=== PATIENT | female | born 1975 | race Caucasian/White ===

== ENCOUNTER 2018-09-11 17:44 | Emergency (ER) | payer OTHER, SELFPAY ==
[2018-09-11 17:46] VITALS: BP 137/73; PULSE 119; RESP 22; TEMP 36.2; O2SAT 99; BMI 26.4
--- NOTE | 2018-09-11 18:01 | CT_ITS ---
STUDY: CT ABDOMEN AND PELVIS WITH CONTRAST REASON FOR EXAM: Female, 43 years old. Abdominal pain with fever and dizziness RADIATION DOSAGE (If Supplied By Facility): CTDIvol = ( 9.68 ) mGy, DLP = ( 625.66 ) mGycm TECHNIQUE: Transaxial images were obtained from the dome of the diaphragm to the symphysis pubis with oral contrast. 75 ml of Isovue 300 contrast was administered. Sagittal and coronal images were reconstructed. Individualized dose optimization techniques were used for this CT. COMPARISON: None. FINDINGS: The visualized lung bases are unremarkable. The visualized portions of the heart are within normal limits. Normal liver. Normal gallbladder and extrahepatic biliary system. Normal spleen. Normal pancreas. Normal bilateral adrenal glands. Normal right kidney. Normal left kidney. Normal visualized stomach. Normal small intestine. There is moderately wall thickening of the sigmoid colon with small diverticula noted. Rochelle-colonic stranding noted. There is passage of oral contrast into the rectum. The appendix is not identified but no pericecal stranding is identified. Normal abdominal aorta. Normal inferior vena cava. Normal retroperitoneum. Normal urinary bladder. Normal abdominal wall. Normal osseous structures. CT/Abdomen/Pelvis WITH Contrast IMPRESSION: 1. Sigmoid diverticulitis without focal fluid collection or pneumoperitoneum. Electronically Signed: Aniceot Romo MD at 20:08 EDT , Service support ,
[2018-09-11 18:10] VITALS: BP 126/76; PULSE 103; RESP 17; O2SAT 100
--- NOTE | 2018-09-11 18:58 | ED.RN ---
unable to obtain iv access. dr sales. jesus wasted in rx distroyer and verified in accudose. witness by josh bravo.
[2018-09-11 19:29] LABS: Absolute Lymphocyte Count 1.68 X10^3/ul (0.83-4.51); Absolute Neutrophil Count 8.3 X10^3/uL (2.0-7.7); Basophil# 0.02 X10^3/uL; Basophil% 0.2 % (0-1); Eosinophil# 0.17 X10^3/uL; Eosinophils% 1.6 % (0-5); Hematocrit 38.3 % (37-47); Hemoglobin 12.6 g/dl (12.0-15.0); Lymphocyte # 1.68 X10^3/ul (4.0); Lymphocyte % 15.5 % (19-41); Mean Corp Hgb Conc 32.9 g/gl (32-36); Mean Corpuscular Hgb 30.8 pg (27.0-32.0); Mean Corpuscular Volume 93.6 fL (81-99); Mean Platelet Vol. 9.6 fl (6.2-12.0); Monocyte# 0.67 X10^3/uL; Monocyte% 6.2 % (0-10); Neutrophil # 8.31 X10^3/uL (2.7-7.7); Neutrophil % 76.3 % (47-70); Platelet Count 224 K/mm3 (150-450); RBC Distribution Width CV 11.9 % (11.6-14.6); RBC Distribution Width SD 40.2 fl (35.1-43.9); Red Blood Count 4.09 M/mm3 (4.2-5.4); White Blood Count 10.9 K/mm3 (4.4-11.0)
[2018-09-11 19:30] LABS: POSITIVE COUNT NO; POSITIVE DIFFERENTIAL NO; POSITIVE MORPHOLOGY NO
[2018-09-11 19:41] LABS: AST(SGOT) 31 U/L (15-37); Alanine Aminotransfer ALT/SGPT 26 U/L (13-56); Albumin, Serum 3.9 g/dL (3.2-5.0); Alkaline Phosphatase 92 U/L (45-117); Anion Gap 7 (5-15); BUN 11 mg/dL (7-18); BUN/Creat Ratio 12.3 RATIO (10-20); Calcium,Total 8.9 mg/dL (8.5-10.1); Chloride 101 mmol/L (98-107); EST Glomerular Filtration Rate 72 mL/min (>60); Est Glom Filt Rate - Afr Amer 88 mL/min (>60); Estimated Creatinine Clearance 59.57 ml/min; Globulin 4.4 g/dL (2.2-4.2); Glucose 86 mg/dL (74-106); Lipase 79 U/L (73-393); Potassium 4.4 mmol/L (3.5-5.1); Protein, Total 8.3 g/dL (6.4-8.2); Sodium Level 137 mmol/L (136-145)
[2018-09-11] MEDS: Metoclopramide 10 MG/2 ML Vial IV (19:41)
[2018-09-11] MEDS: HYDROmorphone 1 MG/ML Syringe 0.5 MG IV (19:41)
[2018-09-11] MEDS: 0.9% Normal Saline 1,000 ML 1000 ML IV (19:41)
[2018-09-11 19:47] LABS: Bacteria 0 SEEN /hpf (None Seen); Mucous, Urine 0 SEEN /hpf (<or=2+); Red Blood Cells-Urine 0 SEEN /hpf (0-5)
[2018-09-11 19:51] LABS: Color, Urine Straw (Yellow); Glucose, Dipstick Normal (Normal); Ketone-Dipstick Negative (Negative); Leukocyte Esterase-Dipstick Negative /ul (Negative); Nitrite-Dipstick Negative (Negative); Occult Blood-Urine Negative /ul (Negative); Protein-Dipstick Negative (Negative); Specific Gravity, Urine 1.005 (1.002-1.030); Urine Bilirubin Dipstick Negative (Negative); Urine Clarity Clear (Clear); Urine Urobilinogen Normal (Normal)
[2018-09-11 19:58] LABS: Squamous Epithelial Cells - UA 0-5 SEEN /hpf (5-10); White Blood Cells 0-5 SEEN /hpf (0-5)
[2018-09-11 20:00] VITALS: BP 96/64; PULSE 88; RESP 20; O2SAT 98
--- NOTE | 2018-09-11 20:39 | ED.VISSUMM ---
- ER Visit Summary Date of Service: 09/11/18 Chief Complaint: Acute right-sided and lower quadrant abdominal pain that started yesterday History of Present Illness: The patient is a 43 F who presents with increasing right-sided and lower quadrant abdominal pain with documented fever of 102.0 ?F. She reports nausea without vomiting, diarrhea, constipation or change in color of stool. She reports pain with movement or walking. She is status post hysterectomy. She denies dysuria, frequency, urgency or hematuria. She denies food intolerance to greasy or fried foods. She denies back pain. She has no other complaints please read written note Physical Examination: Vital signs are noted and unremarkable. Patient appears uncomfortable. Head is atraumatic normocephalic. Pupils are equal round reactive. Extraocular muscles are intact. TMs are pearly white with landmarks noted. Nares patent with no drainage. Posterior pharynx without erythema or exudate. Uvula is midline. There is no dysphonia or dysphasia. Trachea is midline. There is no stridor with auscultation of the neck. Heart is regular without murmur, gallop or rub. S1 and S2 are normal. Lungs are clear to auscultation with good movement of air bilaterally. Abdomen soft with peritoneal findings. There is no CVA tenderness. There is no evidence of umbilical or inguinal hernia. There is no inguinal lymphadenopathy. Neuro exam is nonfocal. Test Results: CBC, electrolyte panel and UA are unremarkable. CT of the abdomen pelvis with p.o. contrast reveals diverticulitis without phlegmon, abscess or pneumoperitoneum. Emergency Department Course and Treatment: With patient complaining of maximal tenderness right lower quadrant need to evaluate for appendicitis. Also need to evaluate for acute right-sided diverticulitis. UTI unlikely. With no CVA tenderness doubt pyelonephritis. Hepatic and lipase were obtained in the event that this is an atypical presentation for acute cholecystitis. Treatment Plan: Since patient is afebrile with normal white count and vitals patient will be treated as an outpatient with instructions to follow-up with Dr. Green in 1-2 days. If symptoms worsen to return Disposition: Discharged to home since patient meets criteria for outpatient treatment Impression: Acute diverticulitis initial encounter This note was generated with [employer] dictation software. It may contain incorrect words, spelling, and punctuation that were not noted in review of the chart prior to signing ED Disposition - Plan for ED Patient: Disposition: Home or Assisted Living Chief Complaint: Abd Pain Instructions: ED Diverticulitis Prescriptions: Oxycodone HCl/Acetaminophen [Percocet 5/325] 1 tablet PO Q6H PRN PRN 3 Days #12 tablet PRN Reason: Pain Ciprofloxacin [Cipro] 500 mg PO BID #14 tablet Metronidazole 500 mg PO TID #21 tablet Referrals: Julián Green DO [Primary Care Provider] - 2 Days Additional Instructions: Your prescriptions were electronically transmitted to [facility] located on [facility]
[2018-09-11] MEDS: Ciprofloxacin 500 MG Tablet PO (21:17)
[2018-09-11] MEDS: metroNIDAZOLE 500 MG Tablet PO (21:17)
== END 2018-09-11 21:19 | disposition home or self-care (01) ==
PROVIDERS: Emergency Provider Emergency Medicine; Family Provider Student in an Organized Health Care Education/Training Program; PCP Student in an Organized Health Care Education/Training Program
DX: K57.92 Diverticulitis of intestine, part unspecified, without perforation or abscess without bleeding (principal)
CPT/HCPCS: 74177; 80048; 80076; 81001; 83690; 85025; 96361; 96374; 96375; 99285; J7030; Q9967

== ENCOUNTER 2019-09-22 17:16 | Observation (INO) | payer OTHER, SELFPAY ==
[2019-08-26 16:34] VITALS: BMI 26.4
[2019-09-22] VITALS (8 sets, daily range): BP systolic 94–158; BP diastolic 55–85; PULSE 72–110; RESP 15–18; TEMP 36.4–36.8; O2SAT 98–100; BMI 28.7; BMI 27.6; BMI 27.7
--- NOTE | 2019-09-22 17:31 | EKG12_ITS ---
Test Reason : CP Blood Pressure : / mmHG Vent. Rate : 104 BPM Atrial Rate : 104 BPM P-R Int : 152 ms QRS Dur : 082 ms QT Int : 344 ms P-R-T Axes : 068 065 -53 degrees QTc Int : 452 ms Sinus tachycardia Nonspecific T wave abnormality Abnormal ECG Confirmed by EDWARD CHIANG, ANA ([id number]), television news video editor DIEGO ADAMS ([id number]) on 09/25/2019 10:58:00 AM Referred By: BRADLEY Confirmed By:ANA LEON MD
--- NOTE | 2019-09-22 17:31 | RAD_ITS ---
STUDY: X-RAY CHEST REASON FOR EXAM: Female, 44 years old. Chest pain. TECHNIQUE: Single AP portable view of the chest. COMPARISON: None. FINDINGS: There are monitoring devices. The lungs are clear and expanded. There is no demonstrated pleural abnormality. Normal size heart. Normal mediastinum and amy. Normal visualized pulmonary arteries. Normal visualized aortic arch and descending thoracic aorta. Normal visualized thoracic spine. Normal visualized ribs, clavicles, and shoulders. There is no demonstrated abnormality of the visualized soft tissue structures of the upper abdomen. RAD/Chest 1 View (Portable) IMPRESSION: Normal x-ray examination of the chest. Electronically Signed: Gian Todd MD at 18:06 EDT , Service support ,
--- NOTE | 2019-09-22 17:33 | ED.VIS.GEN ---
History of Present Illness Chief Complaint: Chest Pain Informant: Patient Onset: Today Timing: Intermittent Current Severity: Moderate Maximum Severity: Moderate Narrative: Patient presents with chest pain and nausea today. She had 3 episodes. First episode lasted about 20 minutes and then resolved. Her current episode is been more persistent. She initially thought she just had some reflux. She does not feel short of breath. She has not noted recent change in activity tolerance. She denies any personal history of cardiac disease. She does have family history. She did have a trip to [place] 6 weeks ago. Past Medical History - Allergies and Home Meds Allergies/Adverse Reactions: Allergies prochlorperazine [From Compazine] Allergy (Verified 09/22/19 17:17) Unknown sumatriptan [From Imitrex] Allergy (Verified 09/22/19 17:17) JAW PAIN fentanyl Adverse Reaction (Verified 09/22/19 17:17) SEVERE NAUSEA/VOMITING morphine Adverse Reaction (Verified 09/22/19 17:17) SEVERE NAUSEA/VOMITING ondansetron Adverse Reaction (Verified 09/22/19 17:17) AVOIDING SINCE PHENERGAN MADE HER STOP BREATHING promethazine [From Phenergan] Adverse Reaction (Verified 09/22/19 17:17) STOPPED BREATHING Primary Care Physician: Julián Green DO [Primary Care Provider] - Prior records reviewed: Yes Past Medical History: - - Reviewed Lives: Spouse/ Significant Other Smoking Status: Never smoker Review of Systems General: Denies: Chills, Fever Eyes: Denies: Visual changes - bilaterally ENT: Denies: Bilateral ear pain Cardiovascular: Reports: Chest pain Respiratory: Denies: Dyspnea, Cough Gastrointestinal: Reports: Nausea. Denies: Abdominal pain, Vomiting, Diarrhea Genitourinary: Denies: Dysuria Musculoskeletal: Denies: Swelling, Extremity Pain Skin: Denies: Rash Hematologic: Denies: Easy bruising Allergy: Denies: Uticaria Physical Exam Vital Signs/Narrative: Vital Signs Temp Pulse Resp BP Pulse Ox 09/22/19 17:17 97.7 F L 110 H 15 158/85 H 100 09/22/19 17:16 96 16 158/85 H 98 Inital Vital Signs reviewed: Yes General: Well nourished, Well developed Head: Normocephalic ENT: Moist mucous membranes Neck: Supple Cardiovascular: Regular rate, Regular rhythm Respiratory: No distress, CTA bilaterally Abdomen: Soft, Nontender, Normal bowel sounds Extremities: Nontender Skin: Normal color Neurological: Alert, Oriented x3 Psychological: Normal affect Diagnostic/Tx/Re-eval Impressions Chest X-Ray 09/22/19 17:31 IMPRESSION: Normal x-ray examination of the chest. Electronically Signed: Gian Todd MD at 18:06 EDT , Service support , 09/22/19 17:31 Chest 1 View (Portable) [RAD] Stat Laboratory Results 09/22/19 09/22/19 09/22/19 17:30 17:30 17:30 WBC 8.5 RBC 4.35 Hgb 13.5 Hct 40.8 MCV 93.8 MCH 31.0 MCHC 33.1 RDW Std Deviation 42.8 RDW Coeff of Barbara 12.3 Plt Count 238 MPV 9.2 Immature Gran % (Auto) 0.400 Neut % (Auto) 62.2 Lymph % (Auto) 29.1 [place] % (Auto) 6.2 Eos % (Auto) 1.6 Baso % (Auto) 0.5 Absolute Neuts (auto) 5.3 Absolute Lymphs (auto) 2.47 Nucleated RBC % 0 D-Dimer Quant (PE/DVT) < 0.27 L Sodium 138 Potassium 3.5 Chloride 102 Carbon Dioxide 30.0 Anion Gap 6 BUN 17 Creatinine 0.98 Estim Creat Clear Calc 54.13 Est GFR (MDRD) Af Amer 78 Est GFR (MDRD) Non-Af 65 BUN/Creatinine Ratio 17.3 Glucose 94 Calcium 9.5 Troponin I < 0.015 - EKG Initial EKG Interpretation: Sinus Tachycardia - Sinus tach at 104 with lateral T wave flattening. This is new when compared to prior study of 2013. - Medical Decision Making Patient has multiple allergies to pain medications and nausea meds. She was given 0.5 mg of Dilaudid slow push. She is also ordered a dose of IV Protonix. On repeat evaluation she does report mild improvement in her symptoms, although Protonix is just now getting hung. I have recommended observation overnight for cycling of enzymes and possible stress test in the morning. We will speak with the hospitalist. ED Disposition - Plan for ED Patient: Disposition: Acute Care Hospital [facility] Diagnosis: Chest pain Referrals: Green,Julián, DO [Primary Care Provider] -
[2019-09-22] MEDS: Aspirin 81 MG TAB.CHEW 324 MG PO (17:39)
[2019-09-22 17:40] LABS: Absolute Lymphocyte Count 2.47 X10^3/uL (0.83-4.51); Absolute Neutrophil Count 5.3 X10^3/uL (2.0-7.7); Basophil# 0.04 X10^3/uL; Basophil% 0.5 % (0-1); Eosinophil# 0.14 X10^3/uL; Eosinophils% 1.6 % (0-5); Hematocrit 40.8 % (37-47); Hemoglobin 13.5 g/dL (12.0-15.0); Lymphocyte # 2.47 X10^3/ul (4.0); Lymphocyte % 29.1 % (19-41); Mean Corp Hgb Conc 33.1 g/dL (32-36); Mean Corpuscular Volume 93.8 fL (81-99); Mean Platelet Vol. 9.2 fl (6.2-12.0); Monocyte# 0.53 X10^3/uL; Monocyte% 6.2 % (0-10); NRBC Flagged by Analyzer 0 % (0-5); Neutrophil # 5.29 X10^3/uL (2.7-7.7); Neutrophil % 62.2 % (47-70); Platelet Count 238 K/mm3 (150-450); RBC Distribution Width CV 12.3 % (11.6-14.6); RBC Distribution Width SD 42.8 fl (35.1-43.9); Red Blood Count 4.35 M/mm3 (4.2-5.4); White Blood Count 8.5 K/mm3 (4.4-11.0)
[2019-09-22] MEDS: HYDROmorphone 0.5 MG/0.5 ML SYRINGE IV ×2 (17:42→23:12)
[2019-09-22 17:47] LABS: D-Dimer Quantitative (DVT/PE) < 0.27 FEU/ug/m (0.27-0.49)
[2019-09-22 18:14] LABS: Anion Gap 6 (5-15); BUN 17 mg/dL (7-18); BUN/Creat Ratio 17.3 RATIO (10-20); Calcium,Total 9.5 mg/dL (8.5-10.1); Chloride 102 mmol/L (98-107); Creatinine, Serum 0.98 mg/dL (0.55-1.02); EST Glomerular Filtration Rate 65 mL/min (>60); Est Glom Filt Rate - Afr Amer 78 mL/min (>60); Estimated Creatinine Clearance 54.13 ml/min; Glucose 94 mg/dL (74-106); Potassium 3.5 mmol/L (3.5-5.1); Sodium Level 138 mmol/L (136-145)
[2019-09-22] MEDS: 0.9% Normal Saline 1,000 ML 150 ML IV (18:25)
--- NOTE | 2019-09-22 18:59 | HP.PCM_ITS ---
Problem List (1) Chest pain Status: Acute Qualifiers: Chest pain type: precordial pain Qualified Code(s): R07.2 - Precordial pain History of Present Illness Date of Admission: 09/22/19 Chief Complaint: Precordial chest pain The patient is a 44 year old F was seen in the emergency room at [facility] with a chief complaint of precordial chest pain which began today. Patient has had several episodes of this chest pain-she describes it as either a sharp jabbing pain or a pressure-like sensation in the center of her chest. Does not radiate into her neck jaw or arms, it is not accompanied by shortness of breath or diaphoresis she does have some nausea. Patient states that she cannot identify what precipitates the chest discomfort, she states that it lasts approximately 25 to 30 minutes, it is not related to activity as she has it at rest. Patient denies any history of reflux disease or any gastrointestinal problems, the chest discomfort is not made worse by position, coughing, or sneezing. Patient denies any history of diabetes, she does not smoke, she has no first- degree relatives with cardiac disease, she has no history of hypertension, she states her cholesterol was checked recently and she was not placed on any medications for cholesterol. Work-up in the emergency room included labs which revealed a normal troponin, patient's EKG showed a normal sinus rhythm with some flattening of the T waves in the lateral precordial leads. Patient will be placed in observation status for chest pain, enzymes will be cycled, she will undergo an exercise nuclear str ess test tomorrow and I have also ordered an echocardiogram on the patient. Past Medical History Allergies prochlorperazine [From Compazine] Allergy (Verified 09/22/19 17:17) Unknown sumatriptan [From Imitrex] Allergy (Verified 09/22/19 17:17) JAW PAIN fentanyl Adverse Reaction (Verified 09/22/19 17:17) SEVERE NAUSEA/VOMITING morphine Adverse Reaction (Verified 09/22/19 17:17) SEVERE NAUSEA/VOMITING ondansetron Adverse Reaction (Verified 09/22/19 17:17) AVOIDING SINCE PHENERGAN MADE HER STOP BREATHING promethazine [From Phenergan] Adverse Reaction (Verified 09/22/19 17:17) STOPPED BREATHING Home Medications: Ambulatory Orders Medication Instructions Recorded Fluoxetine [Prozac] 20 mg PO DAILY 09/11/18 zolpidem 10 mg tablet 12.5 mg PO QHS PRN 08/26/19 ALPRAZolam [Xanax] 0.5 mg PO DAILY PRN 09/22/19 Amitriptyline HCl 50 mg PO QHS 09/22/19 Surgical History: Surgical History (Last Updated 08/26/19 @ 16:33 by Kimberly Larson) History of hysterectomy Z90.710 Surgical History: hysterectomy, - - Removal of ovarian cyst, arthroscopic shoulder surgery, lasik surgery Psychiatric History: 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 Lives: Spouse/ Significant Other Smoking Status: Never smoker Tobacco Use: Non-smoker Alcohol: Occasional Drugs: None - *Family History Maternal History Items: No pertinent history Paternal History Items: No pertinent history Review of Systems Constitutional: Denies: Anorexia, Chills, Fever, Night Sweats, Malaise, Weakness, Weight Change Eyes: Denies: Cataracts, Conjunctivae Inflammation, Double vision, Drainage, Eyelid Inflammation, Redness HEENT: Denies: Difficulty Hearing, Difficulty Swallowing, Dysphasia, Ear Pain, Eye Pain, Hearing Changes, Nasal bleeding, Nasal Congestion, Post Nasal Drip Cardiovascular: Reports: Chest Pain, Chest Pressure. Denies: Claudication, Edema, Heaviness, Light Headedness, Orthopnea, Palpitations, Paroxysmal Noc. Dyspnea, Syncope Respiratory: Denies: Cough, Hemoptysis, Pleuritic Pain, Shortness of Breath, Shortness of breath at rest, Shortness of breath upon exertion, Sputum production, Wheezing Gastrointestinal: Denies: Abdominal Pain, Constipation, Diarrhea, Hematemesis, Hematochezia, Nausea, Melena, Vomiting Genitourinary: Denies: Dysuria, Frequency, Hematuria, Hesitancy, Urgency Gynecological: Denies: Breast symptoms Musculoskeletal: Denies: Back Pain, Foot Pain, Hand Pain, Joint Pain, Joint stiffness, Joint swelling, Joint Tenderness, Leg Pain Skin: Denies: Dryness, Pruritis, Rash Neurological: Denies: Blurred vision, Double vision, Change in Speech, Slurred speech, Difficulty swallowing, Focal weakness, Headaches, Incoordination, Numbness, Tingling Psychiatric: Denies: Anxiety, Depression, Homicidal Ideations, Suicidal Ideations Endocrine: Denies: Change in Body Habitus, Heat/ Cold Intolerance, Polydipsia, Polyuria Hematologic/ Lymphatic: Denies: Adenopathy, Anemia, Easy Bruising, Easy Bleeding, Petechiae, Purpura VTE Information - Inpt Only VTE Present on Admission: No VTE Mechan Device Prophylaxis: None VTE Pharm Prophylaxis ordered?: No Reason prophylaxis not ordered:: Treatment Not Indicated Patient Problems: Active and Suspected Problems (Last Updated 08/26/19 @ 16:31 by Kimberly Larson) Chest pain (Acute) - Physical Exam Vitals/I&O's: Vital Signs Temp Pulse Resp BP Pulse Ox 97.7 F L 92 18 120/76 100 09/22/19 17:17 09/22/19 18:26 09/22/19 18:26 09/22/19 18:26 09/22/19 18:26 Oxygen Flow Rate (L/min) 2 Oxygen Delivery Method Nasal Cannula Weight: 68.9 kg Body Mass Index (BMI) 28.7 General: Alert, Oriented x3, Cooperative, No apparent distress, Well developed, Well nourished HEENT: Atraumatic, PERRLA, EOMI, Normocephalic Oral: Moist Mucosa Neck: Supple, No JVD, Negative Carotid Bruits, No Nuchal Rigidity, Trachea Midline, Thyroid Normal Size and Texture Lungs: Clear to auscultation, Normal air movement, No rhonchi, No wheeze, No rales Cardiovascular: Regular rate, Regular Rhythm, Normal S1, Normal S2, No murmurs, PMI Normal, No rub noted Abdomen: Bowel Sounds Present, Soft, Non Tender, Non-Distended, No hernias noted Extremities: No clubbing, No cyanosis, No edema, Capillary Refill Less than 3 Seconds Skin: No rashes, No breakdown Musculoskeletal: No Tenderness to Palpation of Joints or Extremities Neurological: Cranial nerves II-XII grossly intact, Neuro grossly intact, Motor Exam 5/5 strength throughout, Sensory exam intact to light touch and pain, Coordination normal Psych/Mental Status: Normal Affect, Appropriate, Alert and oriented to time, place, person, mood and affect Laboratory Results 09/22/19 17:30: WBC 8.5, RBC 4.35, Hgb 13.5, Hct 40.8, MCV 93.8, MCH 31.0, MCHC 33.1, RDW Std Deviation 42.8, RDW Coeff of Barbara 12.3, Plt Count 238, MPV 9.2, Immature Gran % (Auto) 0.400, Neut % (Auto) 62.2, Lymph % (Auto) 29.1, [place] % (Auto) 6.2, Eos % (Auto) 1.6, Baso % (Auto) 0.5, Absolute Neuts (auto) 5.3, Absolute Lymphs (auto) 2.47, Nucleated RBC % 0 09/22/19 17:30: D-Dimer Quant (PE/DVT) < 0.27 L 09/22/19 17:30: Sodium 138, Potassium 3.5, Chloride 102, Carbon Dioxide 30.0, Anion Gap 6, BUN 17, Creatinine 0.98, Estim Creat Clear Calc 54.13, Est GFR (MDRD) Af Amer 78, Est GFR (MDRD) Non-Af 65, BUN/Creatinine Ratio 17.3, Glucose 94, Calcium 9.5, Troponin I < 0.015 Current Medications Sodium Chloride () 1,000 mls @ 150 mls/hr IV .Q6H40M NIKI Last Admin: 09/22/19 18:25 Dose: 150 mls/hr Documented by: Assessment/Plan All Active Problems (Last Updated 08/26/19 @ 16:31 by Kimberly Larson) Chest pain (Acute) Impacted cerumen of both ears (Resolved) Conjunctivitis, left eye (Resolved) #1 precordial chest pain-etiology unclear, possibly secondary to anxiety or possible gastro-intestinal etiology-patient will be placed in observation status on PCU, cardiac enzymes will be cycled, she will have an echocardiogram to assess structural cardiac disease, if her enzymes remain normal she will undergo a nuclear exercise stress test tomorrow. I talked at length with the patient and her who was at the bedside during my examination, her chest pain I feel is atypical for cardiac disease-she has no risk factors for cardiac disease that I can determine. Patient exercises regularly, this chest pain does not seem to be positional in nature and I was unable to reproduce it pushing on the patient's chest wall. Patient does take anxiety medications, she mentioned to me during my examination she thought that stress may have caused her problem. #2 anxiety disorder-patient will remain on her present medications. Code Visit OBSV E&M: [id number] Initial observation care L3
--- NOTE | 2019-09-22 19:16 | ECHOD_ITS ---
Reason For Study: CHEST PAIN Procedure This was a 2D Doppler, Color Flow transthoracic echocardiogram. The exam was of adequate technical quality. Exam performed in department. Left Ventricle Normal LV size. Left ventricular systolic function is normal. The estimated ejection fraction is 65 %. No evidence for diastolic dysfunction. No regional wall motion abnormalities noted. Right Ventricle Normal RV size. Normal systolic function. Atria Normal left atrium. Normal right atrium. No doppler evidence for ASD. Mitral Valve There is no mitral annular calcification. Mild focal mitral valve calcification of the posterior leaflet. Trivial mitral valve insufficiency. Tricuspid Valve Normal tricuspid valve. Trivial tricuspid valve insufficiency. Aortic Valve Trisinus/trileaflet aortic valve. Normal aortic valve. Pulmonic Valve The pulmonic valve is not well visualized. Great Vessels Normal sized aortic root. Pericardium/Pleural No pericardial effusion. Epicardial fat. MMode/2D Measurements & Calculations LVIDd: 4.0 cm IVSd: 0.69 cm Ao root diam: 2.6 cm LVIDs: 2.7 cm LVPWd: 0.66 cm RVDd: 2.6 cm FS: 32.7 % LAV(MOD-bp): 31.5 ml LVAd ap4: 23.7 cm2 SV(MOD-sp4): 35.3 ml LAV(MOD-bp) Indexed: 19.2 ml/m2 EDV(MOD-sp4): 57.8 ml LAV(MOD-sp2): 37.9 ml EDV(sp4-el): 60.2 ml LAV(MOD-sp4): 26.7 ml LVAs ap4: 13.0 cm2 ESV(MOD-sp4): 22.5 ml ESV(sp4-el): 22.4 ml EF(MOD-sp4): 61.0 % EF(sp4-el): 62.9 % SV(sp4-el): 37.8 ml LA A4 area: 12.8 cm2 LA dimension(2D): 3.1 cm RA A4 area: 12.2 cm2 Time Measurements MV dec time: 0.17 sec Doppler Measurements & Calculations MV E max cody: 82.6 cm/sec Lat Peak E' Cody: 12.8 cm/sec Med Peak E' Cody: 10.8 cm/sec MV A max cody: 54.1 cm/sec E/E' lat: 6.5 E/E' med: 7.7 MV E/A: 1.5 Ao V2 max: 124.0 cm/sec LV V1 max: 91.3 cm/sec Ao max P.1 mmHg LV V1 max P.3 mmHg Interpretation Summary Left ventricular systolic function is normal. The estimated ejection fraction is 65 %. Mild focal mitral valve calcification of the posterior leaflet. Trivial mitral valve insufficiency. Trivial tricuspid valve insufficiency. Epicardial fat. No evidence for diastolic dysfunction. Ordering Physician: Chris Bautista Referring Physician: LACEY ROSE Performed By: Anupama Fermin, GERARDO, RVT
--- NOTE | 2019-09-22 19:34 | EKG12_ITS ---
Test Reason : CP ADMISSION Blood Pressure : / mmHG Vent. Rate : 074 BPM Atrial Rate : 074 BPM P-R Int : 122 ms QRS Dur : 080 ms QT Int : 394 ms P-R-T Axes : 035 054 020 degrees QTc Int : 437 ms Normal sinus rhythm Normal ECG When compared with ECG of 22-SEP-2019 17:20, MANUAL COMPARISON REQUIRED, DATA IS UNCONFIRMED Confirmed by EDWARD CHIANG, ANA ([id number]), managing editor DIEGO ADAMS ([id number]) on 09/25/2019 11:34:27 AM Referred By: ANETA Confirmed By:ANA LEON MD
[2019-09-22] MEDS: Acetaminophen 325 MG Tablet 650 MG PO (19:51)
[2019-09-22] MEDS: Amitriptyline 25 MG Tablet 50 MG PO (21:57)
[2019-09-22] MEDS: Zolpidem Tartrate 5 MG Tablet 10 MG PO (21:57)
[2019-09-23 03:06] VITALS: PULSE 72
[2019-09-23 03:50] VITALS: BP 93/55; PULSE 74; RESP 14; TEMP 36.6; O2SAT 96
--- NOTE | 2019-09-23 05:55 | EKG12_ITS ---
Test Reason : AM EKG Blood Pressure : / mmHG Vent. Rate : 069 BPM Atrial Rate : 069 BPM P-R Int : 146 ms QRS Dur : 080 ms QT Int : 396 ms P-R-T Axes : 061 066 051 degrees QTc Int : 424 ms Normal sinus rhythm Normal ECG When compared with ECG of 22-SEP-2019 20:08, MANUAL COMPARISON REQUIRED, DATA IS UNCONFIRMED Confirmed by EDWARD CHIANG, ANA ([id number]), scientific publications editor DIEGO ADAMS ([id number]) on 09/25/2019 11:33:13 AM Referred By: ANETA Confirmed By:ANA LEON MD
[2019-09-23 07:16] VITALS: PULSE 74
--- NOTE | 2019-09-23 08:00 | NURSING ---
Pt to stress test via [employer]
--- NOTE | 2019-09-23 10:04 | STRESSREP_ITS ---
Stress Test Report Date: 09-23-19 Procedure: Exercise tolerance test/imaging study Indications: Chest pain Consent: Per the patient Procedure: The patient exercised on a Luis protocol for 5 minutes and 30 seconds completing Stage I and 2 minutes and 30 seconds of Stage II achieving a peak heart rate of 150 bpm (86 % predicted maximal heart rate) with a peak blood pressure 146/60 mmHg and a peak MET capacity of 7 METs. The baseline ECG demonstrated normal sinus rhythm. The peak exercise ECG demonstrated somatic/motion artifact with beat to beat nonspecific ST segment variability. There were no cardiac dysrhythmias pretest, during exercise, or recovery. The functional capacity was considered decreased. There was chest discomfort pretest, during exercise, and recovery. The examination was discontinued secondary to chest discomfort and fatigue. Impression: 1. Technically adequate (percent predicted maximal heart rate greater than 85%) exercise tolerance test 2. Peak exercise ECG with somatic/motion artifact with beat to beat nonspecific ST segment variability 3. There were no cardiac dysrhythmias pretest, during exercise, or recovery 4. Nuclear images pending Myocardial perfusion imaging study: Technique: The patient was injected with 12.0 mCi of technetium 99m Cardiolite and subsequently rest SPECT Cardiolite nuclear imaging was obtained in the horizontal long, vertical long, and short axis views. The patient exercised on a Luis protocol for 5 minutes and 30 seconds completing Stage I and 2 minutes and 30 seconds of Stage II achieving a peak heart rate of 150 bpm (86 % predicted maximal heart rate) with a peak blood pressure 146/60 mmHg and a peak MET capacity of 7 METs. The patient was injected with 36.0 mCi of technetium 99m Cardiolite and subsequently stress SPECT Cardiolite nuclear imaging was obtained in the horizontal long, vertical long, and short axis views. A gated Cardiolite study at peak stress was obtained. Interpretation: Rest and stress SPECT Cardiolite nuclear imaging status post realignment, normalization, and attenuation correction, demonstrates the appearance of extracardiac/gastrointestinal tracer uptake near the inferior segments at rest. Otherwise there appears to be relative uniform tracer uptake and myocardial perfusion appearing within normal limits. There are no myocardial perfusion deficits appreciated on the stress polar map images. There is end systolic thickening and brightening. The gated Cardiolite study demonstrates myocardial thickening and inward wall motion. The reported LVEF is 84 %. Impression: 1. Rest and stress SPECT Cardiolite nuclear imaging demonstrate relative uniform tracer uptake and myocardial perfusion appearing within normal limits. 2. The gated Cardiolite study reports an LVEF of 84 %. This note was generated with ContactMonkeyation software. It may contain incorrect words, spelling, and punctuation that were not noted in checking the note before signing.
[2019-09-23 10:44] VITALS: BP 109/65; PULSE 81; RESP 16; TEMP 36.7; O2SAT 99
[2019-09-23] MEDS: Acetaminophen 325 MG Tablet 650 MG PO (10:48)
[2019-09-23] MEDS: FLUoxetine 20 MG Capsule PO (10:48)
[2019-09-23 11:02] VITALS: PULSE 79
--- NOTE | 2019-09-23 13:43 | DCINST_ITS ---
- Discharge Diagnoses Current Active Problems: Current Active and Chronic Problems (Last Updated 08/26/19 @ 16:31 by Kimberly Larson) Chest pain (Acute) You will use the following diet at home:: Regular Your food should be the consistency of: Regular Your liquids should be the consistency of: Regular/Thin Discharge Activity: Return to Normal Activity Allergies/Adverse Reactions: Allergies prochlorperazine [From Compazine] Allergy (Verified 09/22/19 17:17) Unknown promethazine [From Phenergan] Allergy (Verified 09/22/19 19:12) STOPPED BREATHING sumatriptan [From Imitrex] Allergy (Verified 09/22/19 17:17) JAW PAIN fentanyl Adverse Reaction (Verified 09/22/19 17:17) SEVERE NAUSEA/VOMITING morphine Adverse Reaction (Verified 09/22/19 17:17) SEVERE NAUSEA/VOMITING ondansetron Adverse Reaction (Verified 09/22/19 17:17) AVOIDING SINCE PHENERGAN MADE HER STOP BREATHING Medications to take at Discharge Fluoxetine [Prozac] 20 mg PO DAILY 09/11/18 zolpidem 10 mg tablet 12.5 mg PO QHS PRN 08/26/19 ALPRAZolam [Xanax] 0.5 mg PO DAILY PRN 09/22/19 Amitriptyline HCl 50 mg PO QHS 09/22/19 Primary Care Physician: Julián Green DO [Primary Care Provider] - Please follow up with your Primary Care Physician in: 1-2 weeks Test Results: Test results from this visit will be discussed in further detail at your follow- up appointment, if applicable. Proposed Discharge Date: 09/23/19
--- NOTE | 2019-09-23 13:44 | PCM.DC.SUM ---
<Oliverio Quiñones - Last Filed: 09/23/19 13:44> Discharge Date and Diagnosis - Problem List Patient Problems: Active and Suspected Problems (Last Updated 08/26/19 @ 16:31 by Kimberly Larson) Chest pain (Acute) Date of Admission: 09/22/19 Date of Discharge: 09/23/19 - Primary Discharge Diagnosis Active and Suspected Problems (Last Updated 08/26/19 @ 16:31 by Kimberly Larson) Chest pain - musculoskeletal Anxiety disorder Hx migraines Hospital Course and Treatment Imaging Results: Diagnostics: 09/23/19 05:55 Nuclear Stress Test - Treadmil [NM] AM (NON MEDS) Impression: 1. Rest and stress SPECT Cardiolite nuclear imaging demonstrate relative uniform tracer uptake and myocardial perfusion appearing within normal limits. 2. The gated Cardiolite study reports an LVEF of 84 %. RAD/Chest 1 View (Portable) IMPRESSION: Normal x-ray examination of the chest. Echo: Interpretation Summary Left ventricular systolic function is normal. The estimated ejection fraction is 65 %. Mild focal mitral valve calcification of the posterior leaflet. Trivial mitral valve insufficiency. Trivial tricuspid valve insufficiency. Epicardial fat. No evidence for diastolic dysfunction. Procedures: 2-D Echocardiogram, Stress test Summary of Care Provided: Hospital Course: The patient is a 44 year old F with past medical history of generalized anxiety disorder and history of migraines who presented to the emergency room with complaints of left-sided chest pain. Chest pain started the day of presentation and occurred multiple times. He was described as a sharp jabbing pain and sometimes pressure-like over the precordial area. There is no radiation, no shortness of breath. He would occur at rest. It was not worsened by exertion. Episodes would last 25 to 30 minutes. In the emergency room her EKG showed normal sinus rhythm with some flattening of the T waves, negative troponin, negative chest x-ray. She was admitted to the PCU and placed on telemetry. She had no events on telemetry overnight. Repeat EKGs were negative. She underwent a stress test the following morning which was negative. Is felt that her pain was secondary to musculoskeletal pain. She was discharged to home in stable condition. She will need to follow-up with her PCP in 1 to 2 weeks. This patient was seen by Oliverio Quiñones PA-C under the supervision of Doctor Galvan. [] Patient Problems: Active and Suspected Problems (Last Updated 08/26/19 @ 16:31 by Kimberly Larson) Chest pain (Acute) - Physical Exam Vitals/I&O's: Vital Signs Temp Pulse Resp BP Pulse Ox 98.1 F 79 16 109/65 99 09/23/19 10:44 09/23/19 11:02 09/23/19 10:44 09/23/19 10:44 09/23/19 10:44 Oxygen Flow Rate (L/min) 1 Oxygen Delivery Method Room Air Weight: 146 lb 6.191 oz Body Mass Index (BMI) 27.6 Intake and Output for Last 24 Hours 09/21/19 09/22/19 09/23/19 23:59 23:59 23:59 Intake Total 1415 / 1415 435 / 435 Output Total 400 / 400 Balance 1015 / 1015 435 / 435 General: Alert, Oriented x3, Cooperative HEENT: Atraumatic, PERRLA, EOMI, Normocephalic Neck: Supple, No JVD, Negative Carotid Bruits Lungs: Clear to auscultation, Normal air movement Cardiovascular: Regular rate, No murmurs Abdomen: Bowel Sounds Present, Soft, Non Tender Extremities: No edema, Capillary Refill Less than 3 Seconds Skin: No rashes, No breakdown Musculoskeletal: No Tenderness to Palpation of Joints or Extremities Neurological: Cranial nerves II-XII grossly intact Psych/Mental Status: Normal Affect, Appropriate, Alert and oriented to time, place, person, mood and affect Laboratory Results 09/22/19 17:30: WBC 8.5, RBC 4.35, Hgb 13.5, Hct 40.8, MCV 93.8, MCH 31.0, MCHC 33.1, RDW Std Deviation 42.8, RDW Coeff of Barbara 12.3, Plt Count 238, MPV 9.2, Immature Gran % (Auto) 0.400, Neut % (Auto) 62.2, Lymph % (Auto) 29.1, [place] % (Auto) 6.2, Eos % (Auto) 1.6, Baso % (Auto) 0.5, Absolute Neuts (auto) 5.3, Absolute Lymphs (auto) 2.47, Nucleated RBC % 0 09/22/19 17:30: D-Dimer Quant (PE/DVT) < 0.27 L 09/22/19 17:30: Sodium 138, Potassium 3.5, Chloride 102, Carbon Dioxide 30.0, Anion Gap 6, BUN 17, Creatinine 0.98, Estim Creat Clear Calc 54.13, Est GFR (MDRD) Af Amer 78, Est GFR (MDRD) Non-Af 65, BUN/Creatinine Ratio 17.3, Glucose 94, Calcium 9.5, Troponin I < 0.015 09/22/19 20:35: Troponin I < 0.015 09/22/19 23:34: Troponin I < 0.015 Current Medications Acetaminophen (Tylenol) 650 mg PO Q6H PRN PRN PRN Reason: Pain Score 1-3/Temp > 100.7 F Last Admin: 09/23/19 10:48 Dose: 650 mg Documented by: Alprazolam (Xanax) 0.5 mg PO TID PRN PRN PRN Reason: ANXIETY Amitriptyline HCl (Elavil) 50 mg PO QHS [facility] Last Admin: 09/22/19 21:57 Dose: 50 mg Documented by: Fluoxetine HCl (Prozac) 20 mg PO DAILY [facility] Last Admin: 09/23/19 10:48 Dose: 20 mg Documented by: Hydromorphone HCl (Dilaudid Inj) 0.5 mg IV Q4H PRN PRN PRN Reason: Pain Score 6-10/10 Last Admin: 09/22/19 23:12 Dose: 0.5 mg Documented by: Sodium Chloride () 10 - 40 ml IV UD PRN PRN Reason: SALINE FLUSH Zolpidem Tartrate (Ambien (Generic)) 10 mg PO QHS PRN PRN PRN Reason: SLEEP Last Admin: 09/22/19 21:57 Dose: 10 mg Documented by: Discharge Diet: No Restrictions Discharge Activity: Return to Normal Activity Home Medications: Medications to take at Discharge Fluoxetine [Prozac] 20 mg PO DAILY 09/11/18 zolpidem 10 mg tablet 12.5 mg PO QHS PRN 08/26/19 ALPRAZolam [Xanax] 0.5 mg PO DAILY PRN 09/22/19 Amitriptyline HCl 50 mg PO QHS 09/22/19 Primary Care Physician: Julián Green DO [Primary Care Provider] - Please follow up with your Primary Care Physician in: 1-2 weeks Disposition: Home Minutes spent on discharge:: 35 Patient Condition:: Stable Medical Necessity - Tobacco Use Smoking Status: Never smoker Tobacco Use: Non-smoker Meaningful Use Info Meaningful Use Diagnoses (Choose all that apply): None applicable <Roberto Galvan - Last Filed: 09/23/19 14:18> Discharge Date and Diagnosis - Primary Discharge Diagnosis Active and Suspected Problems (Last Updated 08/26/19 @ 16:31 by Kimberly Larson) Chest pain (Acute) Hospital Course and Treatment Imaging Results: 09/23/19 05:55 Nuclear Stress Test - Treadmil [NM] AM (NON MEDS) Summary of Care Provided: This patient was seen in conjunction with Oliverio Quiñones PA-C . I have independently interviewed and examined the patient and reviewed pertinent historical, laboratory, and other data. Please refer to Oliverio Quiñones PA-C note for details of this patient's presentation, findings, and recommendations. I have reviewed Oliverio Quiñones PA-C note and concur with documented findings. In brief, patient is a 4-year-old lady who presented with chest pain placed on a monitored bed MT was ruled out with serial cardiac enzymes subsequently underwent a nuclear stress test which was negative for stress-induced ischemia. Hospital course: As documented above - Physical Exam Vitals/I&O's: Vital Signs Temp Pulse Resp BP Pulse Ox 98.1 F 79 16 109/65 99 09/23/19 10:44 09/23/19 11:02 09/23/19 10:44 09/23/19 10:44 09/23/19 10:44 Oxygen Flow Rate (L/min) 1 Oxygen Delivery Method Room Air Weight: 66.4 kg Body Mass Index (BMI) 27.6 Intake and Output for Last 24 Hours 09/21/19 09/22/19 09/23/19 23:59 23:59 23:59 Intake Total 1415 / 1415 435 / 435 Output Total 400 / 400 Balance 1015 / 1015 435 / 435 Laboratory Results 09/22/19 17:30: WBC 8.5, RBC 4.35, Hgb 13.5, Hct 40.8, MCV 93.8, MCH 31.0, MCHC 33.1, RDW Std Deviation 42.8, RDW Coeff of Barbara 12.3, Plt Count 238, MPV 9.2, Immature Gran % (Auto) 0.400, Neut % (Auto) 62.2, Lymph % (Auto) 29.1, [place] % (Auto) 6.2, Eos % (Auto) 1.6, Baso % (Auto) 0.5, Absolute Neuts (auto) 5.3, Absolute Lymphs (auto) 2.47, Nucleated RBC % 0 09/22/19 17:30: D-Dimer Quant (PE/DVT) < 0.27 L 09/22/19 17:30: Sodium 138, Potassium 3.5, Chloride 102, Carbon Dioxide 30.0, Anion Gap 6, BUN 17, Creatinine 0.98, Estim Creat Clear Calc 54.13, Est GFR (MDRD) Af Amer 78, Est GFR (MDRD) Non-Af 65, BUN/Creatinine Ratio 17.3, Glucose 94, Calcium 9.5, Troponin I < 0.015 09/22/19 20:35: Troponin I < 0.015 09/22/19 23:34: Troponin I < 0.015 Current Medications Acetaminophen (Tylenol) 650 mg PO Q6H PRN PRN PRN Reason: Pain Score 1-3/Temp > 100.7 F Last Admin: 09/23/19 10:48 Dose: 650 mg Documented by: Alprazolam (Xanax) 0.5 mg PO TID PRN PRN PRN Reason: ANXIETY Amitriptyline HCl (Elavil) 50 mg PO QHS [facility] Last Admin: 09/22/19 21:57 Dose: 50 mg Documented by: Fluoxetine HCl (Prozac) 20 mg PO DAILY [facility] Last Admin: 09/23/19 10:48 Dose: 20 mg Documented by: Hydromorphone HCl (Dilaudid Inj) 0.5 mg IV Q4H PRN PRN PRN Reason: Pain Score 6-10/10 Last Admin: 09/22/19 23:12 Dose: 0.5 mg Documented by: Sodium Chloride () 10 - 40 ml IV UD PRN PRN Reason: SALINE FLUSH Zolpidem Tartrate (Ambien (Generic)) 10 mg PO QHS PRN PRN PRN Reason: SLEEP Last Admin: 09/22/19 21:57 Dose: 10 mg Documented by: Code Visit OBSV E&M: [id number] Observation care discharge
== END 2019-09-23 13:43 | disposition home or self-care (01) ==
LOC: ED 18:30 → PCU 19:14
PROVIDERS: Admitting Provider Internal Medicine; Emergency Provider Emergency Medicine; Family Provider Student in an Organized Health Care Education/Training Program; PCP Student in an Organized Health Care Education/Training Program; Visit Provider Internal Medicine
DX: R07.89 Other chest pain (principal); R11.0 Nausea; Z79.899 Other long term (current) drug therapy; F41.1 Generalized anxiety disorder; I08.1 Rheumatic disorders of both mitral and tricuspid valves; R94.31 Abnormal electrocardiogram [ECG] [EKG]; R00.0 Tachycardia, unspecified
CPT/HCPCS: 36415; 71045; 78452; 80048; 84484; 85025; 85379; 93005; 93017; 93306; 96361; 96365; 96366; 96375; 96376; 99218; 99285; A9500; J7030; Q9957; A4216; G0378

== ENCOUNTER → 2019-10-01 15:27 | Outpatient (CLI) | payer OTHER, SELFPAY ==
[2019-08-26 16:34] VITALS: BMI 26.4
[2019-09-22 19:17] VITALS: BMI 27.6
--- NOTE | 2019-10-01 15:30 | BI_ITS ---
MAMMOGRAPHY - BILATERAL SCREENING REASON FOR EXAM: Female, 44 years old. Routine annual screening examination. PERTINENT HISTORY: Non-contributory. TECHNIQUE: Digital bilateral breast lorenzo (3D mammographic acquisition) in the CC and MLO projections. 2-D mediolateral oblique (MLO) and craniocaudad (CC) views of both breasts were obtained. CAD: Full Field Digital Mammography with Computer Added Detection was performed. COMPARISON: Comparison is made with prior operative examination of July 11, 2016. FINDINGS: Breast Composition: There are scattered areas of fibroglandular density. There are no dominant masses or suspicious calcifications. Stable benign-appearing bilateral axillary lymph nodes. No other significant abnormalities are identified. There has been no significant change since the prior study. BI/SCREEN MAMM (CAD) W/LORENZO BILAT IMPRESSION: Stable bilateral screening mammogram. Yearly follow-up mammogram recommended. (A) ASSESSMENT CATEGORY: BIRADS Category 2: Benign. A letter regarding these results will be sent to the patient by the facility within 30 days. Approximately 10% of breast cancers are not detected by mammography. A normal mammogram should not delay biopsy of a clinically suspicious abnormality. [id number] Electronically Signed: Brad Calabrese, at 8:33 EDT , Service support ,
== END ==
PROVIDERS: Family Provider Student in an Organized Health Care Education/Training Program; PCP Student in an Organized Health Care Education/Training Program; Referring Provider Student in an Organized Health Care Education/Training Program; Visit Provider Student in an Organized Health Care Education/Training Program
DX: Z12.31 Encounter for screening mammogram for malignant neoplasm of breast (principal)
CPT/HCPCS: 77063; 77067

== ENCOUNTER 2020-01-14 12:09 | Day surgery (SDC) | payer OTHER, SELFPAY ==
[2019-12-23 15:10] VITALS: BMI 27.6
--- NOTE | 2020-01-13 18:22 | PCM.HP.BLA ---
History and Physical Date of Admission: 01/14/20 Penelope Sevilla 1975 ? ? REFERRING PHYSICIAN: Samantha Booth ([facility])* ? CHIEF COMPLAINT: Abdominal Pain ? HPI: The patient is a 44 year old female presents with severe right upper quadrant abdominal pain, worsened in the past 2-3 days. Accompanied by nausea with emesis. Had fever of 104F, but presently denies fevers. Denies URI symptoms. Also with abdominal bloating. Also with fatigue and anorexia. Denies biliary obstructive signs such as icterus or light colored stools. Denies constipation or diarrhea. Mother had gallbladder disease. US today Biliary: No intrahepatic biliary duct dilation. ?? ? CBD: 4 mm. ?? ? Gallbladder: ?Normal caliber ?-Contents: Numerous shadowing gallstones identified. ?-Wall: ?Normal ?-Other: ?Negative sonographic Vogel's sign. ? ? PAST MEDICAL HISTORY ? Encounter for insertion or removal of intrauterine contraceptive device 03/22/09 ? Major depressive disorder, recurrent episode, unspecified 1994 ? Ovarian cyst ? ? Premenopausal menorrhagia ? ? 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 + ppd, treated x 1 yr isoniazid ? PAST SURGICAL HISTORY ? EXCISON TUMOR SOFT TISSUE THIGH/KNEE SUBQ 3+CM ? 10/10/13 ? Exc. left ant thigh lipoma ? EXTRACTION, ERUPTED TOOTH OR EXPOSED ROOT (ELEVATION AND/OR FORCEPS REMOVAL) ? 1995 +/- ? wisdom teeth ? HYSTEROSCOPY, SURGICAL; WITH SAMPLI ? 01/27/09 ? Menorrhagia, dysmenorrhea ? L'SCOPE FULG/EXC LES OVAR/VISC/LESIA ? ? Left ovarian cystectomy for pain and b9 cyst ? CT ANESTH,DX ARTHROSC PROC,SHOULDER JOINT ? 2004 ? rotater cuff (Dr. Dumont) ? S BALLOON,UTERINE ABLATION 54830 ? 2012 ? TUBAL LIGATION HX ? Current Outpatient Medications ? LORazepam (ATIVAN) 0.5 mg tab Take 1/2-1 tablet 3 times daily as needed for nausea/vomiting ? AMBIEN CR 12.5 mg CR tablet Take 1 tablet by mouth at bedtime as needed (sleep) for up to 90 days. FOR INSOMNIA ? ALPRAZolam (XANAX) 0.5 mg tablet Take 1 tablet by mouth twice daily as needed for Anxiety (anxiety) for up to 30 days. ? FLUoxetine (PROZAC) 20 mg capsule Take 1 capsule by mouth once daily. ? cholecalciferol (VITAMIN D3) 2,000 unit tablet Take 1 tablet by mouth once daily. ? amitriptyline (ELAVIL) 50 mg tablet Take 1 tablet by mouth daily at bedtime. ? ? ALLERGIES: Compazine [Prochlorperazine Edisylate]; Zofran [Ondansetron Hcl (Pf)]; Flagyl [Metronidazole Hcl]; Imitrex [Sumatriptan Succinate]; Morphine; Phenergan [Promethazine Hcl]; Reglan [Metoclopramide Hcl] ? PERSONAL HISTORY: Tobacco Use ? Smoking status: Never Smoker ? Smokeless tobacco: Never Used Substance Use Topics ? Alcohol use: Yes ? ? Comment: social ? Drug use: No ? FAMILY HISTORY ? Psychiatry Mother ? ? depression, required ECT ? Hypertension Father ? ? Psychiatry Father ? ? depression, required ECT ? Psychiatry Paternal Grandfather ? ? Ischemic Heart Disease Paternal Grandfather ? ? 2 DE's in 40's, of DE age 60's, heavy EtOH ? Ischemic Heart Disease Maternal Grandfather ? ? 2 DE's age 60's, had CABG, smoker ? Ischemic Heart Disease Paternal Grandmother ? ? several DE's, had CABG ? Ischemic Heart Disease Paternal Uncle ? ? pt's father's twin brother (identical) - DE in his 40's, heavy EtOH ? ? Nursing Notes: Margarita Moody LPN 01/13/2020 3:23 PM Signed REVIEW OF SYSTEMS: General: The patient NOTES fatigue, denies weight loss, denies weight gain, NOTES feeling hot, and denies feelings of cold. Eyes: The patient denies glaucoma, denies eye injury/surgery, does not wear glasses or contacts. Ear/Nose/Throat: The patient denies allergies, denies hayfever, denies ear infections, and denies bloody noses. Cardiovascular: The patient denies chest pain, denies heart disease, denies high blood pressure,denies cardiac stent, denies prior heart attack, denies irregular heart beat, denies high cholesterol, denies poor circulation, denies heart failure, other cardiac issues, denies claudication, denies cold feet, denies peripheral arterial stent. Respiratory: The patient denies tuberculosis, denies pneumonia, denies frequent cough, denies pulmonary embolism, denies shortness of breath, and denies coughing up blood. Gastrointestinal: The patient denies difficulty swallowing, denies acid reflux, denies ulcers, denies vomiting, denies jaundice/hepatitis, NOTES gallbladder problems, denies black or tarry stools, denies hemorrhoids, denies bleeding from rectum, denies diverticulitis, denies constipation, denies diarrhea, denies loss of stool control, and denies hernias. Kidney/Bladder: The patient denies kidney stones, denies urine infections, and denies bloody urine. Skin: The patient denies a history of skin cancer, denies bleeding/changing moles, and denies a history of skin rash. Neurologic: The patient denies a history of epilepsy/convulsions, denies headaches, denies head/spinal injuries, and denies stroke/TIA. Psychiatric: The patient denies psychiatric medications, denies depression, and denies voices, denies substance abuse. Endocrine: The patient denies thyroid disorders, denies diabetes, and denies hormonal problems. Hematologic: The patient denies a history of bruising, denies bleeding, and denies anemia, denies blood clots. Infections: The patient denies a history of measles and mumps, denies rheumatic fever, and denies sexually transmitted diseases. Musculoskeletal: The patient denies back pain/injury, denies back problems, denies sciatica, denies knee/foot trouble, denies arthritis, or denies gout. ? PHYSICAL EXAMINATION: General: The patient is 44 year old female, well nourished, well hydrated in no acute distress. The patient is oriented to time, place, and person. VITALS: Blood pressure 110/72, pulse 85, temperature 37 ?C (98.6 ?F), temperature source Temporal, weight 69.4 kg (153 lb), last menstrual period 04/02/2017, SpO2 97 %. Body mass index is 28.44 kg/m?. Head ? Normocephalic. EOM intact with sclera clear and no icterus noted. Mouth with mucus membranes moist. Neck - supple with no jugular venous distention noted. Trachea is midline. Lungs ? clear to auscultation. Normal breath sounds. No rales/rhonchi/wheezing noted. No labored breathing noted, such as retractions. No cough heard. Heart ? normal S1 and S2 auscultated. No rubs/clicks/murmurs noted. Regular rate. Abdomen ? soft but tender in right upper quadrant, no peritoneal signs noted. Normal bowel sounds. No abdominal bruits noted. Extremities ? no calf tenderness noted. No pitting edema noted. Skin ? normal skin integrity. Neurological ? gait normal, no focal deficits noted. Psych ? calm and appropriate ? ? IMPRESSION: right upper quadrant abdominal pain, cholelithiasis, bloating ? PLAN: I have discussed the above with the patient. I have offered laparoscopic cholecystectomy, possible cholangiograms I have explained the procedure to the patient. I have counseled the patient as to the risks of the procedure, including but not limited to: infection, bleeding, injury to any blood vessels/nerves, scar tissue, injury to any intraabdominal organs, injury to bowel/bladder, injury to the common bile duct/biliary tree, bile leakage, intraabdominal abscess/bleeding, hernias at incisional sites, wound infections, complications of anesthesia, etc. ? the patient understands. The patient wishes to proceed. I have answered all questions to the patient?s satisfaction and the patient has no further questions. . Diagnoses: (K80.20) Multiple gallstones (R10.11) RUQ pain (R14.0) Bloating (R11.0) Nausea Return to Clinic: The patient is instructed to follow-up with me after the procedure.
[2020-01-14] VITALS (10 sets, daily range): BP systolic 107–128; BP diastolic 55–78; PULSE 80–109; RESP 15–16; TEMP 36.2–36.8; O2SAT 95–100; BMI 27.3
[2020-01-14] MEDS: Lactated Ringers 1,000 ML 75 ML IV (12:52)
--- NOTE | 2020-01-14 14:15 | GALL_PTH ---
PATIENT: SMITH SANFORD LOC: [facility] U#:[id number] AGE/SX: 44/F ROOM: RE01/14/[address]: Dr. Luna Mann MD : 1975 BED: DIS: 01/14/2020 SPEC #: [id number] RECD: 01/15/20 09:35 STATUS: CHRISTA REAriana #: [id number] SHAHBAZ: 01/14/20 14:[address]: Luna Mann DEPT: SURGICAL PATHOLOGY RECD BY: Aaron Mata ENTERED: 01/15/20 12:00 SP TYPE: NARINDER PINON DR: Dr. Julián Green, Tissues: Gallbladder, NOS Procedures: Surgery Specimen Level III HEADER OPERATION: Laparoscopic cholecystectomy with IOC PRE-OP DIAGNOSIS: Right upper quadrant abdominal pain, cholelithiasis, bloating TISSUE SUBMITTED: Gallbladder MICROSCOPIC DIAGNOSIS Gallbladder, cholecystectomy: Chronic cholecystitis and cholelithiasis. AM:erendira 01/18/20 MICROSCOPIC DESCRIPTION Slides are reviewed. GROSS DESCRIPTION Received is one container labeled with the patient's name and designated gallbladder. The specimen consists of a gallbladder measuring 7 x 3 x 2.5 cm. The external surface is smooth and glistening. Focally, it is granular, hemorrhagic and contains cautery artifact. The lumen of the gallbladder contains greenish mucoid bile and multiple dark green calculi ranging in size from 0.1 to 1 cm in greatest dimension. The mucosa is bile-stained and without any mass lesions. The gallbladder wall averages 0.1 cm in thickness and is free of mass lesions. Education Managers sections of the gallbladder and the cystic duct at margin of resection are submitted in one cassette. / AM:erendira 01/15/20 TC:3 CPT: 05267
--- NOTE | 2020-01-14 14:15 | RAD_ITS ---
CLINICAL HISTORY: Female, 44 years old. Status post cholecystectomy. PROCEDURE: CHOLANGIOGRAM - interoperative FLUOROSCOPY TIME (if supplied): ( ) minutes/seconds TECHNIQUE: A single provided image demonstrates cannulization of the cystic duct stump. There is contrast extending downward into the duodenum without filling defect stricture or dilatation. Contrast is also seen refluxing into the common hepatic and central intrahepatic ducts which appear normal. Please refer to the operative report for further details. RAD/Cholangiogram/ O R,Initial IMPRESSION: Intraoperative cholangiogram. Electronically Signed: Seymour Perez DO at 21:33 EST Tel [phone], Service support ,
--- NOTE | 2020-01-14 14:52 | DCINST_ITS ---
Discharge Diet: No Restrictions - avoid carbonated beverages for a few days drink plenty of water Discharge Activity: Return to Normal Activity, May not drive while taking narcotic pain medications. Lifting Restrictions: no lifting greater than 10 pounds for 2 weeks Call your doctor if your incision/area has: Continuous Slow Oozing, Foul Smelling Discharge Call your doctor if you observe: Fever of 101 or Higher Additional Dressing/Incision Instructions:: Leave dressings in place. may get wet in shower. Do not soak - no tub baths/swimming Allergies/Adverse Reactions: Allergies metoclopramide Allergy (Verified 01/14/20 12:30) Other prochlorperazine [From Compazine] Allergy (Verified 01/14/20 12:30) Unknown promethazine [From Phenergan] Allergy (Verified 01/14/20 12:30) STOPPED BREATHING sumatriptan [From Imitrex] Allergy (Verified 01/14/20 12:30) JAW PAIN fentanyl Adverse Reaction (Verified 01/14/20 12:30) SEVERE NAUSEA/VOMITING morphine Adverse Reaction (Verified 01/14/20 12:30) SEVERE NAUSEA/VOMITING ondansetron Adverse Reaction (Verified 01/14/20 12:30) AVOIDING SINCE PHENERGAN MADE HER STOP BREATHING Medications to take at Discharge Fluoxetine [Prozac] 20 mg PO DAILY 09/11/18 zolpidem 10 mg tablet 12.5 mg PO QHS PRN 08/26/19 ALPRAZolam [Xanax] 0.5 mg PO DAILY PRN 09/22/19 Amitriptyline HCl 50 mg PO QHS 09/22/19 Cholecalciferol (Vitamin D3) [Vitamin D3] 2,000 unit PO DAILY 01/14/20 Lorazepam [Ativan] 0.5 mg PO TID PRN PRN 01/14/20 Primary Care Physician: Julián Green DO [Primary Care Provider] - Test Results: Test results from this visit will be discussed in further detail at your follow- up appointment, if applicable. Please Follow Up With: Luna Mann MD - call When: to be seen in 10-14 days, please call for date and time, thank you
[2020-01-14] MEDS: Bupiv/Epi 0.25% 30 ML Vial (15:02)
--- NOTE | 2020-01-14 15:38 | OP.PCM_ITS ---
Report of Operation Date of Procedure: 01/14/20 Pre-Operative Diagnosis: cholelithiasis Post-Operative Diagnosis: cholelithiasis, cholecystitis Surgery/Procedure Performed:: laparoscopic cholecystectomy with intraoperative cholangiograms Description of Surgical Findings:: normal IOC, cholecystitis with omentum adherent to gallbladder business services director: Ricardo Guardado Type of Anesthesia:: General Anesthesiologist: Olu Hurst Specimen's removed: gallbladder and contents Estimated Blood Loss (mL): < 10 ml Fluids Replaced: 900 ml RL Description of Procedure: After informed consent was given, the patient was brought to the Operating Room. Appropriate time out protocol was followed. She was then placed in the supine position. The patient was then placed under general endotracheal anesthesia. The abdomen was then prepped with a sterile surgical skin preparation and sterile surgical drapes were placed. The infraumbilical skin fold was grasped with penetrating clamps and the skin and subcutaneous tissues were infiltrated with 0.25% marcaine with epinephrine. A skin incision was then made with a 15 blade scalpel. The anterior abdominal wall was elevated and a Veress needle was carefully inserted into the intraabdominal cavity. It was checked to be in the proper position with a normal saline drop test. A CO2 pneumoperitoneum was then created. Once this was achieved, then the Veress needle was removed and an 11mm trocar was placed in its stead. A 10mm laparoscope was then inserted into the trocar and careful attention was directed to the intraabdominal contents. There was no evidence of injury to any intraabdominal organs from insertion of the Veress needle or the trocar. Under direct visualization, a 5mm subxiphoid trocar and two lateral 5mm right subcostal trocars were placed. The skin and subcutaneous tissues at these sites were infiltrated with 0.25% marcaine with epinephrine prior to placement of these trocars. Attention was then directed to the right upper quadrant of the abdomen. Graspers were placed in the lateral trocars to grasp the distal aspect of the gallbladder and direct it cephalad and to grasp the gallbladder at Proctor?s pouch and direct it laterally. Dissection then began on the proximal gallbladder continuing down to the area of the triangle of Calot to bluntly dissect out the cystic duct. The neck of the gallbladder was identified and blunt dissection continued to dissect out a segment of the cystic duct. A clip was then placed on the neck of the gallbladder. A small ductotomy was then made. A Ranfac catheter was brought in through a separate skin incision and placed into the cystic duct. An intraoperative cholangiogram was performed under fluoroscopy. The xray revealed no lesions in the common bile duct, arborization of the biliary tree, and good flow into the duodenum. The Ranfac catheter was then removed and two clips were placed proximal to the ductotomy and the cystic duct was then transected. The cystic artery was visualized and bluntly isolated and then two clips were placed proximally and one clip distally and then it was transected between the proximal and distal clips. The gallbladder was then from the liver bed using electrocautery and thus able to be brought out of the umbilical port in an Endobag. It was then forwarded to pathology for analysis. The liver bed was carefully examined. There was no evidence of bile leakage or bleeding. The cystic duct stump and cystic artery stump had their clips intact and there was no evidence of bile leakage or bleeding. The remainder of the abdomen was grossly normal. The CO2 was released and all trocars removed intact. The periumbilical fascia was approximated with a [id number] 0 vicryl suture. All skin incision were closed with 4-0 monocryl in a subdermal fashion. Cavilol and Steristrips were used to reinforce the skin closure. Sterile dressings were applied to all wounds. The patient was extubated and brought to the Recovery Room in stable condition. - Complications none noted - Admit VTE Documentation VTE Present on Admission: Yes VTE Mechan Device Prophylaxis: SCD's
== END 2020-01-14 18:58 | disposition home or self-care (01) ==
LOC: SDC 12:10 → AC 12:12
PROVIDERS: PCP Student in an Organized Health Care Education/Training Program; Referring Provider Surgery; Visit Provider Surgery
PROC: (CPT 47610; principal; 2020-01-14 13:55)
DX: K80.10 Calculus of gallbladder with chronic cholecystitis without obstruction (principal); F32.9 Major depressive disorder, single episode, unspecified; G47.00 Insomnia, unspecified; Z79.899 Other long term (current) drug therapy; Z82.49 Family history of ischemic heart disease and other diseases of the circulatory system; Z88.1 Allergy status to other antibiotic agents; Z88.5 Allergy status to narcotic agent; Z88.8 Allergy status to other drugs, medicaments and biological substances; Z90.49 Acquired absence of other specified parts of digestive tract; Z95.1 Presence of aortocoronary bypass graft
CPT/HCPCS: 00790; 47563; 74300; 76000; 88304; J7050; J7120

== ENCOUNTER → 2020-06-07 10:32 | Outpatient (CLI) | payer OTHER, SELFPAY ==
[2020-01-14 12:39] VITALS: BMI 27.3
--- NOTE | 2020-06-07 10:51 | EKG12_ITS ---
Test Reason : PRE OP Blood Pressure : / mmHG Vent. Rate : 082 BPM Atrial Rate : 082 BPM P-R Int : 148 ms QRS Dur : 086 ms QT Int : 366 ms P-R-T Axes : 067 063 044 degrees QTc Int : 427 ms Normal sinus rhythm Normal ECG Confirmed by BHASKAR CHIANG, HUONG ([id number]), online content editor KELSIE ESCOBAR ([id number]) on 06/08/2020 10:17:54 AM Referred By: Kenyon Billingsley Confirmed By:HUONG MURO MD
[2020-06-07 11:17] LABS: Hemoglobin 12.4 g/dL (12.0-15.0); Mean Corp Hgb Conc 33.5 g/dL (32-36); Mean Corpuscular Volume 95.6 fL (81-99); Mean Platelet Vol. 9.5 fl (6.2-12.0); Platelet Count 258 K/mm3 (150-450); RBC Distribution Width CV 12.7 % (11.6-14.6); RBC Distribution Width SD 43.7 fl (35.1-43.9); Red Blood Count 3.87 M/mm3 (4.2-5.4); White Blood Count 7.1 K/mm3 (4.4-11.0)
[2020-06-07 11:41] LABS: Anion Gap 8 (5-15); BUN 12 mg/dL (7-18); BUN/Creat Ratio 15.3 RATIO (10-20); Calcium,Total 8.9 mg/dL (8.5-10.1); Chloride 101 mmol/L (98-107); Creatinine, Serum 0.78 mg/dL (0.55-1.02); EST Glomerular Filtration Rate 84 mL/min (>60); Est Glom Filt Rate - Afr Amer 101 mL/min (>60); Glucose 94 mg/dL (74-106); Potassium 4.1 mmol/L (3.5-5.1); Sodium Level 135 mmol/L (136-145)
== END ==
PROVIDERS: PCP Student in an Organized Health Care Education/Training Program; Referring Provider Physician Assistant; Visit Provider Physician Assistant
DX: Z01.810 Encounter for preprocedural cardiovascular examination (principal)
CPT/HCPCS: 36415; 80048; 85027; 93005

== ENCOUNTER → 2020-06-14 09:05 | Outpatient (CLI) | payer OTHER, SELFPAY ==
[2020-01-14 12:39] VITALS: BMI 27.3
== END ==
PROVIDERS: PCP Student in an Organized Health Care Education/Training Program; Referring Provider Physician Assistant; Visit Provider Physician Assistant
DX: Z11.59 Encounter for screening for other viral diseases (principal)
CPT/HCPCS: 87635; G2023; U0003

== ENCOUNTER → 2020-10-28 14:02 | Outpatient (CLI) | payer OTHER, SELFPAY ==
[2020-01-14 12:39] VITALS: BMI 27.3
--- NOTE | 2020-10-28 14:27 | BI_ITS ---
MAMMOGRAPHY - BILATERAL SCREENING REASON FOR EXAM: Female, 45 years old. Routine annual screening examination. PERTINENT HISTORY: Screening TECHNIQUE: Digital bilateral breast lorenzo (3D mammographic acquisition) in the CC and MLO projections. 2-D mediolateral oblique (MLO) and craniocaudad (CC) views of both breasts were obtained. CAD: Full Field Digital Mammography with Computer Added Detection was performed. COMPARISON: 10/01/2019 FINDINGS: Breast Composition: Scattered There are no dominant masses or suspicious calcifications. No other significant abnormalities are identified. BI/SCREEN MAMM (CAD) W/LORENZO BILAT IMPRESSION: Stable bilateral screening mammogram. Yearly follow-up mammogram recommended. (A) ASSESSMENT CATEGORY: BIRADS Category 1: Negative. A letter regarding these results will be sent to the patient by the facility within 30 days. Approximately 10% of breast cancers are not detected by mammography. A normal mammogram should not delay biopsy of a clinically suspicious abnormality. [id number] Electronically Signed: Siva Espinoza, at 17:17 EST Tel , Service support ,
== END ==
PROVIDERS: PCP Student in an Organized Health Care Education/Training Program; Referring Provider Obstetrics & Gynecology; Visit Provider Obstetrics & Gynecology
DX: Z12.31 Encounter for screening mammogram for malignant neoplasm of breast (principal)
CPT/HCPCS: 77063; 77067

== ENCOUNTER → 2020-12-22 16:13 | Outpatient (CLI) | payer OTHER, SELFPAY ==
[2020-12-22 15:22] VITALS: BMI 29.5
[2020-12-22 17:48] LABS: Estradiol 47.4 pg/mL; Follicle Stimulating Hormone 73.5 mIU/mL
== END ==
PROVIDERS: PCP Student in an Organized Health Care Education/Training Program; Referring Provider Obstetrics & Gynecology; Visit Provider Obstetrics & Gynecology
DX: Z90.710 Acquired absence of both cervix and uterus (principal)
CPT/HCPCS: 36415; 82670; 83001

== ENCOUNTER 2021-07-03 10:32 | Emergency (ER) | payer OTHER, SELFPAY ==
[2020-12-22 15:22] VITALS: BMI 29.5
[2021-07-03 10:33] VITALS: BP 122/81; PULSE 80; RESP 16; TEMP 36.6; O2SAT 100; BMI 25.4
--- NOTE | 2021-07-03 11:01 | EX.ED.UPPERE ---
HPI History of Present Illness Chief Complaint: Upper Extremity Injury Informant: patient and spouse/S.O. Narrative Narrative: Patient is with pain on the top posterior aspect of the left shoulder. She states she had been doing a lot of backpacking and also scrambling over rocks. It was already sore. She then did whitewater rafting. It was sore if she did this. It is now sore if she lays on the area or moves it. She is not actually having chest pain. No palpitations. She is not short of breath. There is no pleuritic pain. There is no cough. She occasionally feels a little tingling in the fingertips. No change in color of the extremity. If she holds it still it is much better. [facility] Medical History Anxiety Depression Home Medications fluoxetine 20 mg PO DAILY 09/11/18 [History Last Taken 09/22/19] zolpidem 10 mg tablet 12.5 mg PO QHS PRN 08/26/19 [History Last Taken 09/21/19] alprazolam 0.5 mg PO DAILY PRN 09/22/19 [History Last Taken 09/20/19] amitriptyline 50 mg PO QHS 09/22/19 [History Last Taken 09/21/19] cholecalciferol (vitamin D3) 2,000 unit PO DAILY 01/14/20 [History Last Taken Unknown] L norgest/E estradiol-E estrad 0.15 mg-30 mcg (84)/10 mcg(7) tabs,3mos 1 tab PO DAILY #91 tab 12/23/20 [Rx Last Taken Unknown] cyclobenzaprine 10 mg PO TID PRN #14 tab 07/03/21 [Rx Last Taken Unknown] naproxen [Naprosyn] 500 mg PO BID PRN #14 tab 07/03/21 [Rx Last Taken Unknown] Allergy/AdvReac Type Severity Reaction Status Date / Time metoclopramide Allergy Other Verified 07/03/21 10:35 prochlorperazine Allergy Unknown Verified 07/03/21 10:35 [From Compazine] promethazine [From Phenergan] Allergy STOPPED Verified 07/03/21 10:35 BREATHING sumatriptan [From Imitrex] Allergy JAW PAIN Verified 07/03/21 10:35 fentanyl AdvReac SEVERE Verified 07/03/21 10:35 NAUSEA/VOMITING morphine AdvReac SEVERE Verified 07/03/21 10:35 NAUSEA/VOMITING ondansetron AdvReac AVOIDING Verified 07/03/21 10:35 SINCE PHENERGAN MADE HER STOP BREATHING Family History Mother Depression Father Depression Hypertension Grandfather Heart disease Myocardial infarction Depression Grandmother Heart disease Surgical History History of cholecystectomy History of hysterectomy Social History Smoking Status: Never smoker alcohol intake: current details: social substance use type: does not use caffeine: Yes what type of physical activity do you participate in: walking seatbelt use: always do you feel safe at home: Yes 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 Constitutional Constitutional ED: Denies chills Eyes Eyes: Denies blurry vision or change in vision ENT ENT ED: Denies ear pain Cardiovascular Cardiovascular: Denies chest pain or palpitations Respiratory/Chest Respiratory/Chest: Denies cough, dyspnea or dyspnea on exertion Gastrointestinal Gastrointestinal: Denies abdominal pain, nausea or vomiting Musculoskeletal Musculoskeletal: Reports myalgias; Denies neck pain Integumentary Denies rash Neurologic Neurologic: Reports paresthesias; Denies headache(s) or weakness Psychiatric Psychiatric: Reports anxiety and depression Allergic/Immunologic Allergic/Immunologic ED: Denies urticaria EXAM Physical Exam Const Vital Signs: 07/03/21 10:33 Temperature 97.8 F Temperature Source Temporal Pulse Rate 80 Respiratory Rate 16 Blood Pressure 122/81 H Blood Pressure Mean 94 Pulse Ox 100 Oxygen Delivery Method Room Air Positive well nourished and well developed General Appearance ED: well developed HEENT normocephalic and atraumatic Neck full ROM and supple Neck Narrative: There is really no tenderness up in the neck. She does start with some tenderness in the trapezius down low on the left only. Chest Wall inspection of chest normal Chest Narrative: No tenderness in the front of the chest. She has palpable tenderness in the supraspinatus region of her left scapula. There almost appears to be a slight knot in this area. Resp normal respiratory effort and clear to auscultation bilaterally Effort and Inspection: Negative for pain with movement Cardio regular rate, regular rhythm, S1 normal heart sound and no murmurs Cardio Narrative: 4 pulses in upper and lower extremities are equal and normal. GI non-tender Palpation: soft Extremity Extremity Narrative: Tenderness as above. No erythema. No skin changes. Neuro oriented x3 Sensorium / Orientation: alert Motor Exam: Negative for general weakness or strength abnormal Psych mental status grossly normal Skin Lesions: no lesions Rashes: no rashes MDM MDM MDM Narrative Medical decision making narrative: Patient has 2 reasons to cause soreness of her shoulder/scapular area. This was from backpacking and climbing. She then went [place] rafting. I don't think she needs x-ray. There was never a fall or impact. We will get her on nonsteroidals and muscle relaxants. She is also not having any darkening or change in urine. However I have encouraged increased fluids. She should return with worsening pain, swelling, rash, weakness or color change. Discharge Plan Triage Chief Complaint: Upper Extremity Injury ED Provider: Keanu Barron Dx/Rx/DC Orders Clinical Impression: Muscle strain of left scapular region Instructions: ED Shoulder Sprain Prescriptions: New naproxen [Naprosyn] 500 mg tablet 500 mg PO BID PRN (Reason: pain) Qty: 14 RF: 0 cyclobenzaprine 10 mg tablet 10 mg PO TID PRN (Reason: muscle spasm) Qty: 14 RF: 0 No Action zolpidem 10 mg tablet 12.5 mg PO QHS PRN (Reason: Insomnia) RF: 0 fluoxetine 10 MG capsule 20 mg PO DAILY RF: 0 amitriptyline 50 MG tablet 50 mg PO QHS RF: 0 alprazolam 0.5 MG tablet 0.5 mg PO DAILY PRN (Reason: Anxiety) RF: 0 cholecalciferol (vitamin D3) 2,000 UNIT capsule 2,000 unit PO DAILY RF: 0 L norgest/e.estradiol-e.estrad [Ashlyna] 0.15 mg-30 mcg (84)/10 mcg (7) tablets,dose pack,3 month 1 tab PO DAILY Qty: 91 RF: 4 Primary Care Provider: Julián Green Referrals: Julián Green, DO [Primary Care Provider] - 3-5 Days if not improving Disposition Disposition: Home, Self Care
[2021-07-03] MEDS: Naproxen 250 MG Tablet PO (11:19)
[2021-07-03] MEDS: cycloBENZAPRine HCl 10 MG Tablet PO (11:19)
[2021-07-03 11:36] VITALS: BP 108/77; PULSE 62; RESP 15; O2SAT 98
== END 2021-07-03 11:38 | disposition home or self-care (01) ==
LOC: ED 11:29
PROVIDERS: Emergency Provider Emergency Medicine; PCP Student in an Organized Health Care Education/Training Program
DX: S46.912A Strain of unspecified muscle, fascia and tendon at shoulder and upper arm level, left arm, initial encounter (principal); X58.XXXA Exposure to other specified factors, initial encounter
CPT/HCPCS: 99283

== ENCOUNTER → 2021-11-28 10:18 | Outpatient (CLI) | payer OTHER, SELFPAY ==
--- NOTE | 2021-11-28 10:20 | RAD_ITS ---
STUDY: X-RAY - LEFT ANKLE REASON FOR EXAM: Female, 46 years old. ankle pain TECHNIQUE: 3 view(s) of the ankle. COMPARISON: None. FINDINGS: Normal visualized distal tibia and fibula. Chronic avulsion fracture or accessory ossicle near the inferior aspect of the lateral malleolus the fibula. Normal tibiotalar articulation and ankle mortise. Normal visualized talus and calcaneus. The visualized subtalar, talonavicular, calcaneocuboid and tarsal articulations are normal. The soft tissue structures are unremarkable. RAD/Ankle min 3 Views IMPRESSION: No acute fracture or dislocation. Electronically Signed: Loco James MD at 10:58 EST Tel , Service support ,
== END ==
PROVIDERS: PCP Student in an Organized Health Care Education/Training Program; Referring Provider Physician Assistant Surgical; Visit Provider Physician Assistant Surgical
DX: S96.912A Strain of unspecified muscle and tendon at ankle and foot level, left foot, initial encounter (principal)
CPT/HCPCS: 73610

== ENCOUNTER 2021-12-04 11:37 | Outpatient (CLI) | payer OTHER, SELFPAY ==
--- NOTE | 2021-11-30 13:30 | LES_PTH ---
PATIENT: SMITH SANFORD LOC: [facility] U#:[id number] AGE/SX: 46/F ROOM: RE12/04/[address]: Dr. Douglas Alberto MD : 1975 BED: DIS: 12/04/2021 SPEC #: [id number] RECD: 12/04/21 12:51 STATUS: CHRISTA REAriana #: [id number] SHAHBAZ: 11/30/21 13:[address]: Douglas Alberto DEPT: SURGICAL PATHOLOGY RECD BY: Yoselyn Sanz ENTERED: 12/04/21 12:52 SP TYPE: Lesion OTHR DR: Dr. Julián Green, DO Tissues: Skin of upper extremity and shoulder Procedures: Surgery Specimen Level IV HEADER OPERATION: Excision left shoulder lesion PRE-OP DIAGNOSIS: Left shoulder lesion TISSUE SUBMITTED: Left shoulder lesion MICROSCOPIC DIAGNOSIS Skin lesion of left shoulder, excisional biopsy: Basal cell carcinoma, superficial, multifocal, completely excised. AM:erendira 12/05/2021 MICROSCOPIC DESCRIPTION Slides are reviewed. GROSS DESCRIPTION Received in fixative is one container labeled with the patient's name and designated left shoulder lesion. The specimen consists of a piece of stout-white skin ellipse measuring 1.5 x 1 cm and up to 0.3 cm in thickness. The specimen is inked, serially sectioned and submitted entirely in one cassette. / SJ:erendira 12/04/21 TC:0 CPT: 22990
== END 2021-12-04 23:59 | disposition home or self-care (01) ==
LOC: LABSPEC 11:38
PROVIDERS: PCP Student in an Organized Health Care Education/Training Program; Visit Provider Surgery
DX: M75.82 Other shoulder lesions, left shoulder (principal)
CPT/HCPCS: 88305

== ENCOUNTER 2021-12-22 15:14 | Outpatient (CLI) | payer OTHER, SELFPAY ==
--- NOTE | 2021-12-22 15:16 | BI_ITS ---
MAMMOGRAPHY - BILATERAL SCREENING REASON FOR EXAM: Female, 46 years old. Routine annual screening examination. PERTINENT HISTORY: Non-contributory. TECHNIQUE: Digital bilateral breast lorenzo (3D mammographic acquisition) in the CC and MLO projections. 2-D mediolateral oblique (MLO) and craniocaudad (CC) views of both breasts were obtained. CAD: Full Field Digital Mammography with Computer Added Detection was performed. COMPARISON: Comparison is made with prior study dated 10/28/2020 and 10/01/2019. FINDINGS: Breast Composition: The breasts are almost entirely fatty. There are no dominant masses or suspicious calcifications. Stable small benign-appearing bilateral axillary lymph nodes. No other significant abnormalities are identified. There has been no significant change since the prior study. BI/SCRN MAMM (CAD)W/LORENZO BILAT IMPRESSION: Stable bilateral screening mammogram. Yearly follow-up mammogram recommended. (A) ASSESSMENT CATEGORY: BIRADS Category 2: Benign. A letter regarding these results will be sent to the patient by the facility within 30 days. Approximately 10% of breast cancers are not detected by mammography. A normal mammogram should not delay biopsy of a clinically suspicious abnormality. [id number] Electronically Signed: Brad Calabrese MD at 7:59 EST , Service support ,
== END 2021-12-22 23:59 | disposition short-term general hospital (02) ==
LOC: OPBI 15:15
PROVIDERS: PCP Student in an Organized Health Care Education/Training Program; Referring Provider Obstetrics & Gynecology; Visit Provider Obstetrics & Gynecology
DX: Z12.31 Encounter for screening mammogram for malignant neoplasm of breast (principal)
CPT/HCPCS: 77063; 77067

== ENCOUNTER 2022-03-20 16:57 | Emergency (ER) | payer OTHER, SELFPAY ==
[2022-03-20 16:58] VITALS: BP 127/76; PULSE 94; RESP 16; TEMP 35.4; O2SAT 98; BMI 27.4
--- NOTE | 2022-03-20 17:36 | EDS_ITS ---
HPI History of Present Illness Chief Complaint: Headache Informant: patient Onset/Context/Timing Onset: Days (3) Context: Gradual and Onset Timing: Continuous Quality -Headache: Positive for Similar Prior Headaches and Throbbing Location: Left frontal/retro-orbital, now bilateral Current Severity: Moderate Maximum Severity: Moderate Worsened by: Light Relieved by: Nothing Associated Symptoms/Injury Associated Symptoms: Positive for Nausea, Vomiting, Visual Changes (Occasional spots in vision, no field changes or loss of vision) and Photophobia; Negative for Fever, Sore Throat, Sinus Pressure, Numbness, Tingling, Preceding Aura, Blurred Vision and Visual Loss Injury - CALHOUN: Negative for Direct Trauma Narrative Narrative: For an abnormal stacy and 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 She takes amitriptyline for preventative which has been helping and keeping her to 1 headache per month on average. She states this feels like a typical migraine for her with 1 exception that she saw some spots in her vision once while driving but has had no vision loss or changes in sawant of vision. She states the weather changes may be a contributing factor, and she recently had a plane trip to-from [place] and she wonders if that could have contributed. She denies any focal neurologic symptoms or confusion, fevers, chills, other illness. [facility] Medical History (Updated 03/20/22 @ 19:[address] Gian Barger MD) Anxiety Climacteric Depression Headache, migraine Lipoma Shoulder lesion, left Home Medications fluoxetine 20 mg PO DAILY 09/11/18 [History Last Taken 09/22/19] zolpidem 10 mg tablet 12.5 mg PO QHS PRN 08/26/19 [History Last Taken 09/21/19] cholecalciferol (vitamin D3) 2,000 unit PO DAILY 01/14/20 [History Last Taken Unknown] alprazolam 0.5 mg tablet 1 mg PO DAILY PRN tab 10/16/21 [History Last Taken Unknown] amitriptyline 50 mg tablet 75 mg PO QHS tab 10/16/21 [History Last Taken Unknown] L norgest/E estradiol-E estrad 0.15 mg-30 mcg (84)/10 mcg(7) tabs,3mos 1 tab PO DAILY #91 tab 02/28/22 [Rx Last Taken Unknown] rimegepant [Nurtec ODT] 75 mg PO DAILY PRN 03/20/22 [History Last Taken Unknown] Allergy/AdvReac Type Severity Reaction Status Date / Time prochlorperazine Allergy Unknown Verified 03/20/22 17:01 [From Compazine] promethazine [From Phenergan] Allergy STOPPED Verified 03/20/22 17:01 BREATHING sumatriptan [From Imitrex] Allergy JAW PAIN Verified 03/20/22 17:01 fentanyl AdvReac SEVERE Verified 03/20/22 17:01 NAUSEA/VOMITING morphine AdvReac SEVERE Verified 03/20/22 17:01 NAUSEA/VOMITING ondansetron AdvReac AVOIDING Verified 03/20/22 17:01 SINCE PHENERGAN MADE HER STOP BREATHING Family History Mother Depression Father Depression Hypertension Grandfather Heart disease Myocardial infarction Depression Grandmother Heart disease Surgical History History of bladder repair surgery History of cholecystectomy History of hysterectomy History of laparoscopy History of shoulder surgery Social History Smoking Status: Never smoker alcohol intake: current details: social substance use type: does not use caffeine: Yes what type of physical activity do you participate in: walking seatbelt use: always do you feel safe at home: Yes 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 Constitutional Constitutional ED: Denies chills or fever(s) Eyes Eyes: Reports blurry vision; Denies diplopia ENT ENT ED: Denies ear pain or sore throat Cardiovascular Cardiovascular: Denies chest pain or palpitations Respiratory/Chest Respiratory/Chest: Denies cough or dyspnea Gastrointestinal Gastrointestinal: Reports nausea and vomiting; Denies abdominal pain or diarrhea Genitourinary Genitourinary ED: Denies dysuria or urinary frequency Musculoskeletal Musculoskeletal: Denies back pain or myalgias Integumentary Denies abscess or rash Neurologic Neurologic: Reports headache(s); Denies paresthesias or weakness EXAM Physical Exam Const Vital Signs: 03/20/22 16:58 Temperature 95.7 F L Temperature Source Temporal Pulse Rate 94 Respiratory Rate 16 Blood Pressure 127/76 H Blood Pressure Mean 93 Pulse Ox 98 Oxygen Delivery Method Room Air HEENT Reports normocephalic and moist mucous membranes atraumatic Eyes PERRL, EOMs intact bilaterally and conjunctivae normal Eyes Narrative: photophobia Neck no lymphadenopathy, supple and no meningeal signs Resp normal respiratory effort and clear to auscultation bilaterally GI non-tender and non-distended Palpation: soft Extremity normal to inspection and full ROM Neuro oriented x3 and CN's II-XII intact bilaterally Sensorium / Orientation: awake and alert Speech: speech normal Gait (Neuro): normal gait Motor Exam: strength 5/5 throughout Psych mental status grossly normal Skin Lesions: no lesions Rashes: no rashes MDM MDM MDM Narrative Medical decision making narrative: Patient declares allergy to Compazine and Phenergan but states she has had Reglan in the past and her IV without any difficulties and can tolerate that. Therefore she was given that along with some IV fluids, Toradol, Benadryl. On reevaluation, her and she left prior to discharge saying she felt better and they were upset that they were waiting. Discharge Plan Triage Chief Complaint: Headache ED Provider: Gian Barger Dx/Rx/DC Orders Clinical Impression: Headache, migraine Instructions: ED, Migraine (Classical) Prescriptions: No Action zolpidem 10 mg tablet 12.5 mg PO QHS PRN (Reason: Insomnia) RF: 0 fluoxetine 10 MG capsule 20 mg PO DAILY RF: 0 alprazolam 0.5 mg tablet 1 mg PO DAILY PRN (Reason: Anxiety) RF: 0 amitriptyline 50 mg tablet 75 mg PO QHS RF: 0 cholecalciferol (vitamin D3) 2,000 UNIT capsule 2,000 unit PO DAILY RF: 0 Nurtec ODT 75 mg tablet,disintegrating 75 mg PO DAILY PRN (Reason: Migraine Headache) RF: 0 L norgest/e.estradiol-e.estrad [Ashlyna] 0.15 mg-30 mcg (84)/10 mcg (7) tablets,dose pack,3 month 1 tab PO DAILY Qty: 91 RF: 0 Primary Care Provider: Julián Green Referrals: Julián Green DO [Primary Care Provider] - 3-5 Days if not improving Disposition Disposition: Home, Self Care Discharge Date/Time: 03/20/22 19:14
[2022-03-20] MEDS: 0.9% Normal Saline 1,000 ML 999 ML IV (17:51)
[2022-03-20] MEDS: Metoclopramide 10 MG/2 ML Vial IV (17:53)
[2022-03-20] MEDS: DiphenhydrAMINE 50 MG/ML Syringe 25 MG IV (17:53)
[2022-03-20] MEDS: Ketorolac 30 MG/ML Syringe IV (17:53)
--- NOTE | 2022-03-20 19:08 | ED.RN ---
Pt up for re-eval by around 1899. States she feels much better. 1907- Pt seen walking out of ER without d/c paperwork. IV noted in trash can, was removed by pt.
== END 2022-03-20 19:14 | disposition home or self-care (01) ==
LOC: ED 17:42
PROVIDERS: Emergency Provider Emergency Medicine; PCP Student in an Organized Health Care Education/Training Program; Visit Provider Emergency Medicine
DX: G43.909 Migraine, unspecified, not intractable, without status migrainosus (principal)
CPT/HCPCS: 99283; J7030; A4216

== ENCOUNTER 2022-04-10 15:50 | Emergency (ER) | payer OTHER, SELFPAY ==
[2022-04-10 15:52] VITALS: BP 122/85; PULSE 104; RESP 18; TEMP 37.7; O2SAT 98; BMI 25.4
--- NOTE | 2022-04-10 16:25 | CT_ITS ---
EXAM: CT ABDOMEN AND PELVIS WITH INTRAVENOUS CONTRAST CLINICAL INDICATION: lower abd/pelvic pain TECHNIQUE: Helically acquired images were obtained of the abdomen and pelvis with intravenous contrast. This CT exam was performed using one or more of the following dose reduction techniques: automated exposure control, adjustment of the mA and/or kV according to patient size, and/or use of iterative reconstruction technique. This report was created using [employer] report generation technology. CONTRAST: IV 100mL Isovue-300 RADIATION DOSE: CTDIvol = 9.86 mGy, DLP = 628.33 mGy-cm COMPARISON: None. FINDINGS: LOWER THORAX: Unremarkable. Lung bases are clear. No cardiomegaly. No significant pericardial effusion. ABDOMEN: LIVER: Unremarkable. Homogeneous. No focal mass. GALLBLADDER AND BILE DUCTS: Absent or contracted gallbladder. No intra- or extrahepatic biliary ductal dilation. PANCREAS: Unremarkable. No focal cystic or solid mass. SPLEEN: Unremarkable. Normal size without focal cystic or solid mass. ADRENALS: Unremarkable. No nodules. KIDNEYS AND URETERS: Unremarkable. Normal renal size and position. No hydronephrosis. STOMACH AND BOWEL: Diffuse fecal retention throughout the colon but no colon wall thickening. No stomach or bowel distention. PELVIS: APPENDIX: No evidence of acute appendicitis. BLADDER: Unremarkable. REPRODUCTIVE: Unremarkable as visualized. No mass. ABDOMEN and PELVIS: INTRAPERITONEAL SPACE: Unremarkable. No ascites or other fluid collection. No free air. BONES/JOINTS: Unremarkable. No suspicious lytic or blastic abnormality. SOFT TISSUES: Unremarkable. No discrete abdominal or pelvic wall hernia. VASCULATURE: Unremarkable. Abdominal aorta is non-dilated. LYMPH NODES: Unremarkable. No enlarged lymph nodes. CT/Abdomen/Pelvis W IV Cont ONLY IMPRESSION: Diffuse fecal retention throughout the colon but no colon wall thickening. No acute inflammatory process or bowel obstruction. Electronically Signed: Aniceto Romo MD ([place]) at 17:47 EDT ,
--- NOTE | 2022-04-10 16:26 | EDS_ITS ---
HPI HPI - GI History of Present Illness Chief Complaint: Abd Pain Informant: patient Abdominal Pain/Flank Pain Onset: Days Context: Gradual Onset Timing: Continuous Quality: Aching Location: RLQ and LLQ Current Severity: Mild Maximum Severity: Moderate Worsened by: Nothing Relieved by: Nothing Nausea/Vomiting/Emesis GI Symptom: Negative for Nausea and Vomiting Diarrhea/Melena/Hematochezia GI Symptom: Negative for Diarrhea, Melena and Hematochezia Associated Symptoms Associated Symptoms: Negative for Dysuria, Frequency, Hematuria and Urgency Narrative Narrative: 47-year-old female prior partial hysterectomy with ovaries still in place and cholecystectomy. States her last several days has had suprapubic and bilateral lower quadrant abdominal pelvic pain. Denies any dysuria. Had a temperature as high as 99.8. Denies any nausea, vomiting or diarrhea. No constipation. No melena. No vaginal bleeding or discharge. No recent weight change. 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 She has had a prior partial hysterectomy with some type of bladder surgery. Prior similar symptoms: No Recent Illness/Hospitalization: No PFSH PFSH Medical History Anxiety Climacteric Depression Headache, migraine Lipoma Shoulder lesion, left Home Medications fluoxetine 20 mg PO DAILY 09/11/18 [History Last Taken 09/22/19] zolpidem 10 mg tablet 12.5 mg PO QHS PRN 08/26/19 [History Last Taken 09/21/19] cholecalciferol (vitamin D3) 2,000 unit PO DAILY 01/14/20 [History Last Taken Unknown] alprazolam 0.5 mg tablet 1 mg PO DAILY PRN tab 10/16/21 [History Last Taken Unknown] amitriptyline 50 mg tablet 75 mg PO QHS tab 10/16/21 [History Last Taken Unknown] L norgest/E estradiol-E estrad 0.15 mg-30 mcg (84)/10 mcg(7) tabs,3mos 1 tab PO DAILY #91 tab 02/28/22 [Rx Last Taken Unknown] rimegepant [Nurtec ODT] 75 mg PO DAILY PRN 03/20/22 [History Last Taken Unknown] Allergy/AdvReac Type Severity Reaction Status Date / Time ondansetron Allergy AVOIDING Verified 04/10/22 15:53 SINCE PHENERGAN MADE HER STOP BREATHING promethazine [From Phenergan] Allergy STOPPED Verified 04/10/22 15:19 BREATHING fentanyl AdvReac SEVERE Verified 04/10/22 15:19 NAUSEA/VOMITING morphine AdvReac SEVERE Verified 04/10/22 15:19 NAUSEA/VOMITING prochlorperazine AdvReac Unknown Verified 04/10/22 15:53 [From Compazine] sumatriptan [From Imitrex] AdvReac JAW PAIN Verified 04/10/22 15:53 Family History Mother Depression Father Depression Hypertension Grandfather Heart disease Myocardial infarction Depression Grandmother Heart disease Surgical History History of bladder repair surgery History of cholecystectomy History of hysterectomy History of laparoscopy History of shoulder surgery Social History Smoking Status: Never smoker alcohol intake: current details: social substance use type: does not use caffeine: Yes what type of physical activity do you participate in: walking seatbelt use: always do you feel safe at home: Yes 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 Review of Systems ROS Unobtainable: Denies due to encephalopathy Constitutional Constitutional ED: Denies fever(s) ENT ENT ED: Denies ear pain Cardiovascular Cardiovascular: Denies chest pain Respiratory/Chest Respiratory/Chest: Denies dyspnea Gastrointestinal Gastrointestinal: Reports abdominal pain; Denies constipation, diarrhea, nausea or vomiting Genitourinary Genitourinary ED: Denies dysuria or hematuria Musculoskeletal Musculoskeletal: Denies myalgias Integumentary Denies abscess or rash Neurologic Neurologic: Denies headache(s) Psychiatric Psychiatric: Denies depression Endocrine Endocrinology: Denies polyuria Hematologic/Lymphatic Hematologic/Lymphatic: Denies easy bruising Allergic/Immunologic Allergic/Immunologic ED: Denies urticaria EXAM Physical Exam Narrative Exam Narrative: When I am female no acute distress. Vital signs stable. Temperature nine 99.8. Is not septic or toxic. H EENT exam unremarkable. Neck nontender. Lungs clear to auscultation. Heart regular rhythm no murmur. Rate about 100. Abdomen soft nondistended normal bowel sounds no peritoneal signs. Tenderness periumbilical and both right and left lower quadrants and suprapubic. No organomegaly or masses. No signs of obstruction. No hernia. Moving all 4 extremities. Calves are nontender without edema. Skin Red rash consistent with an allergic reaction. Primarily her upper chest. It does liz. No petechiae or purpura. No vesicles or pustules. Neurologically she is awake alert. Const Vital Signs: 04/10/22 15:52 Temperature 99.8 F H Temperature Source Temporal Pulse Rate 104 H Respiratory Rate 18 Blood Pressure 122/85 H Blood Pressure Mean 97 Pulse Ox 98 Oxygen Delivery Method Room Air Positive well nourished and well developed; Negative for cachectic, contractures or unkempt General Appearance ED: well developed and NAD; Negative for unkempt, cachectic, contractures or pallor Nutritional Appearance: Negative for cachectic HEENT Reports moist mucous membranes normocephalic and atraumatic; Negative for trauma or tenderness Eyes PERRL and EOMs intact bilaterally General Eye ED: Negative for pale conjunctiva or scleral icterus Neck no lymphadenopathy, supple and no JVD General: Negative for tenderness Resp normal respiratory effort and clear to auscultation bilaterally Auscultation: Negative for rales, rhonchi or wheezes Cardio regular rate, regular rhythm, S1 normal heart sound, S2 normal heart sound and no murmurs GI non-distended and no masses; Negative for non-tender Inspection: Negative for abdominal distention Auscultation: normoactive bowel sounds; Negative for hyperactive bowel sounds or hypoactive bowel sounds Palpation: soft and tender; Negative for guarding, rigid, hepatomegaly, splenomegaly, hernia, mass, pulsatile mass or rebound tenderness present Back/Spine no CVA tenderness General Back: Negative for CVA tenderness Cervical Spine: Negative for cervical spine tenderness Thoracic Spine / Upper Back: Negative for thoracic spinal tenderness Extremity full ROM General Extremety ED: Negative for edema or tenderness General Extremity: Negative for edema Neuro Sensorium / Orientation: alert, oriented to person, oriented to place and oriented to time; Negative for orientation impaired Motor Exam: strength 5/5 throughout Psych mental status grossly normal and thought process normal Appearance: Negative for unkempt Skin no wounds Skin Narrative: Rash upper chest consistent with a contact dermatitis or allergic reaction. General Skin Exam: Negative for jaundice or pallor Lesions: no lesions Rashes: No no rashes and rashes noted MDM MDM MDM Narrative Medical decision making narrative: 47-year-old female prior partial hysterectomy and lower abdominal pain differential would include [employer] related., Diverticulitis, possible UTI versus other etiologies. CAT scan labs to be obtained. She will be treated with IV morphine and Toradol. She has allergies to several nausea medications. Lab Data Attestation: I reviewed the patient's lab results. Lab results narrative: Urinalysis negative. CBC shows a white count 1.1. H&H 11.9 and 35.1. Prior labs show a mild anemia in the past. Electrolytes show a gap of 7 BUN and creatinine 19 and 1. Liver enzymes are normal. UA is negative. No nitrites no white cells and only rare bacteria. Labs: Laboratory Results - last 24 hr 04/10/22 04/10/22 04/10/22 16:33 16:50 16:55 WBC 11.1 H RBC 3.78 L Hgb 11.9 L Hct 35.1 L MCV 92.9 MCH 31.5 MCHC 33.9 RDW Std Deviation 40.6 RDW Coeff of Barbara 11.9 Plt Count 259 MPV 9.5 Immature Gran % (Auto) 0.200 Neut % (Auto) 75.1 H Lymph % (Auto) 17.5 L [place] % (Auto) 6.0 Eos % (Auto) 0.9 Baso % (Auto) 0.3 Absolute Neuts (auto) 8.3 H Absolute Lymphs (auto) 1.94 Nucleated RBC % 0 Sodium 138 Potassium 4.2 Chloride 104 Carbon Dioxide 27.0 Anion Gap 7 BUN 19 H Creatinine 1.05 H Estim Creat Clear Calc 48.91 Est GFR (MDRD) Af Amer 72 Est GFR (MDRD) Non-Af 59 L BUN/Creatinine Ratio 18.1 Glucose 96 Calcium 9.0 Total Bilirubin 0.30 AST 12 L ALT 21 Alkaline Phosphatase 79 Total Protein 7.5 Albumin 3.5 Globulin 4.0 Albumin/Globulin Ratio 0.9 Urine Color Straw Urine Clarity Clear Urine pH 6.5 Ur Specific [place] 1.015 Urine Protein Negative Urine Glucose (UA) Normal Urine Ketones Negative Urine Occult Blood Negative Urine Nitrite Negative Urine Bilirubin Negative Urine Urobilinogen Normal Ur Leukocyte Esterase Negative Urine RBC 0 SEEN Urine WBC 0-5 SEEN Ur Squamous Epith Cells 0-5 SEEN Urine Bacteria RARE Urine Mucus 0 SEEN Discharge Plan Triage Chief Complaint: Abd Pain Other Complaint: Female C/O ED Provider: Ricardo Garvin Dx/Rx/DC Orders Clinical Impression: Abdominal pain in female, Pelvic pain Prescriptions: No Action zolpidem 10 mg tablet 12.5 mg PO QHS PRN (Reason: Insomnia) RF: 0 fluoxetine 10 MG capsule 20 mg PO DAILY RF: 0 alprazolam 0.5 mg tablet 1 mg PO DAILY PRN (Reason: Anxiety) RF: 0 amitriptyline 50 mg tablet 75 mg PO QHS RF: 0 cholecalciferol (vitamin D3) 2,000 UNIT capsule 2,000 unit PO DAILY RF: 0 Nurtec ODT 75 mg tablet,disintegrating 75 mg PO DAILY PRN (Reason: Migraine Headache) RF: 0 L norgest/e.estradiol-e.estrad [Ashlyna] 0.15 mg-30 mcg (84)/10 mcg (7) tablets,dose pack,3 month 1 tab PO DAILY Qty: 91 RF: 0 Primary Care Provider: Julián Green Referrals: Julián Green DO [Primary Care Provider] -
[2022-04-10 16:42] LABS: Mucous, Urine 0 SEEN /hpf (<or=2+); Red Blood Cells-Urine 0 SEEN /hpf (0-5)
[2022-04-10 16:43] LABS: Color, Urine Straw (Yellow); Glucose, Dipstick Normal (Normal); Ketone-Dipstick Negative (Negative); Leukocyte Esterase-Dipstick Negative /ul (Negative); Nitrite-Dipstick Negative (Negative); Occult Blood-Urine Negative /ul (Negative); Protein-Dipstick Negative (Negative); Specific Gravity, Urine 1.015 (1.002-1.030); Urine Bilirubin Dipstick Negative (Negative); Urine Clarity Clear (Clear); Urine Urobilinogen Normal (Normal); Urine pH 6.5 (5.0 - 8.0)
[2022-04-10 16:53] LABS: Bacteria RARE /hpf (None Seen); Squamous Epithelial Cells - UA 0-5 SEEN /hpf (5-10); White Blood Cells 0-5 SEEN /hpf (0-5)
[2022-04-10] MEDS: Ketorolac 30 MG/ML Syringe IV (16:54)
[2022-04-10 17:03] LABS: Absolute Lymphocyte Count 1.94 X10^3/uL (0.83-4.51); Absolute Neutrophil Count 8.3 X10^3/uL (2.0-7.7); Basophil# 0.03 X10^3/uL; Basophil% 0.3 % (0-1); Eosinophils% 0.9 % (0-5); Hematocrit 35.1 % (37-47); Hemoglobin 11.9 g/dL (12.0-15.0); Lymphocyte # 1.94 X10^3/ul (0.83-4.51); Lymphocyte % 17.5 % (19-41); Mean Corp Hgb Conc 33.9 g/dL (32-36); Mean Corpuscular Hgb 31.5 pg (27.0-32.0); Mean Corpuscular Volume 92.9 fL (81-99); Mean Platelet Vol. 9.5 fl (6.2-12.0); Monocyte# 0.66 X10^3/uL; NRBC Flagged by Analyzer 0 % (0-5); Neutrophil # 8.31 X10^3/uL (2.7-7.7); Neutrophil % 75.1 % (47-70); Platelet Count 259 K/mm3 (150-450); RBC Distribution Width CV 11.9 % (11.6-14.6); RBC Distribution Width SD 40.6 fl (35.1-43.9); Red Blood Count 3.78 M/mm3 (4.2-5.4); White Blood Count 11.1 K/mm3 (4.4-11.0)
[2022-04-10 17:13] LABS: ALB/GLOB Ratio 0.9 RATIO (0.9-2.4); AST(SGOT) 12 U/L (15-37); Alanine Aminotransfer ALT/SGPT 21 U/L (13-56); Albumin, Serum 3.5 g/dL (3.2-5.0); Alkaline Phosphatase 79 U/L (45-117); Anion Gap 7 (5-15); BUN 19 mg/dL (7-18); BUN/Creat Ratio 18.1 RATIO (10-20); Chloride 104 mmol/L (98-107); Creatinine, Serum 1.05 mg/dL (0.55-1.02); EST Glomerular Filtration Rate 59 mL/min (>60); Est Glom Filt Rate - Afr Amer 72 mL/min (>60); Estimated Creatinine Clearance 48.91 ml/min; Glucose 96 mg/dL (74-106); Potassium 4.2 mmol/L (3.5-5.1); Protein, Total 7.5 g/dL (6.4-8.2); Sodium Level 138 mmol/L (136-145)
== END 2022-04-10 18:02 | disposition home or self-care (01) ==
PROVIDERS: Emergency Provider Emergency Medicine; PCP Student in an Organized Health Care Education/Training Program; Visit Provider Emergency Medicine
DX: R10.2 Pelvic and perineal pain (principal); R10.9 Unspecified abdominal pain; R21 Rash and other nonspecific skin eruption; F41.9 Anxiety disorder, unspecified; F32.A Depression, unspecified; Z90.710 Acquired absence of both cervix and uterus; Z90.49 Acquired absence of other specified parts of digestive tract
CPT/HCPCS: 74177; 80053; 81001; 85025; 96374; 96375; 99284; Q9967; A4216

== ENCOUNTER → 2022-04-11 | Outpatient (CLI) | payer OTHER, SELFPAY ==
[2022-04-11 12:31] LABS: Bacteria 0 SEEN /hpf (None Seen); Mucous, Urine 0 SEEN /hpf (<or=2+); Red Blood Cells-Urine 0 SEEN /hpf (0-5)
[2022-04-11 12:33] LABS: Color, Urine Yellow (Yellow); Glucose, Dipstick Normal (Normal); Ketone-Dipstick Negative (Negative); Leukocyte Esterase-Dipstick 25 /ul (Negative); Nitrite-Dipstick Negative (Negative); Occult Blood-Urine Negative /ul (Negative); Protein-Dipstick Negative (Negative); Specific Gravity, Urine 1.015 (1.002-1.030); Urine Bilirubin Dipstick Negative (Negative); Urine Clarity Sl. Cloudy (Clear); Urine Urobilinogen Normal (Normal)
[2022-04-11 12:42] LABS: Squamous Epithelial Cells - UA 0-5 SEEN /hpf (5-10); White Blood Cells 0-5 SEEN /hpf (0-5)
== END | disposition home or self-care (01) ==
LOC: LABSPEC 10:23
PROVIDERS: PCP Student in an Organized Health Care Education/Training Program; Referring Provider Physician Assistant Surgical; Visit Provider Physician Assistant Surgical
DX: R35.0 Frequency of micturition (principal)
CPT/HCPCS: 81001; 87086; 87088

== ENCOUNTER 2022-06-12 19:07 | Observation (INO) | payer OTHER, SELFPAY ==
[2022-06-12] VITALS (8 sets, daily range): BP systolic 66–145; BP diastolic 51–92; PULSE 90–125; RESP 14–19; TEMP 35.4–36.6; O2SAT 94–99; BMI 26.4
--- NOTE | 2022-06-12 19:45 | EKG12_ITS ---
Test Reason : CP Blood Pressure : / mmHG Vent. Rate : 111 BPM Atrial Rate : 111 BPM P-R Int : 120 ms QRS Dur : 086 ms QT Int : 460 ms P-R-T Axes : 000 081 059 degrees QTc Int : 625 ms Sinus tachycardia Nonspecific T wave abnormality Abnormal ECG Confirmed by KENIA CHIANG, GUALBERTO ([id number]), website/blog editor KIRSTY VEGA ([id number]) on 06/14/2022 9:20:22 AM Referred By: SOPHY Confirmed By:ELEAZAR AQUINO MD
--- NOTE | 2022-06-12 20:05 | CT_ITS ---
STUDY: CTA CHEST REASON FOR EXAM: Female, 47 years old. Chest pain RADIATION DOSAGE (If Supplied By Facility): CTDIvol = ( 9.93 ) mGy, DLP = ( 322.97 ) mGycm TECHNIQUE: The examination was performed with the intravenous administration of IV 100mL Isovue-300. Post-processing of the angiographic images was performed, with multiplanar reformation and 3D reconstruction. Individualized dose optimization techniques were used for this CT. COMPARISON: Chest x-ray 10/23/2021 FINDINGS: Normal enhancement of the main pulmonary artery and right and left pulmonary arteries. Normal enhancement of the bilateral peripheral pulmonary arteries. There is no demonstrated pulmonary embolism. Normal thoracic aorta and visualized great vessels. There is no demonstrated aortic dissection. Normal heart and pericardium. Normal mediastinum. Normal hilar regions. Normal visualized trachea and bronchi. The lungs are well expanded. Normal pulmonary parenchyma. Normal pleura. Normal chest wall structures. Mild scoliosis. Normal visualized upper abdomen. CT/CTA Chest W/WO Contrast IMPRESSION: Normal CTA chest examination, without a demonstrated pulmonary embolism or arterial dissection. Electronically Signed: Kamar Pierce MD at 21:35 EDT ,
--- NOTE | 2022-06-12 20:07 | EDS_ITS ---
HPI History of Present Illness Chief Complaint: Chest Pain Informant: patient Onset/Context/Timing Onset: Weeks (3) Timing: Intermittent Quality: Positive for Heaviness and Pressure Location: Substernal Worsened By: Exertion Relieved By: Nothing Associated Symptoms: Positive for Nausea, Diaphoresis, Dyspnea, Cough, Lightheadedness and Palpitations; Negative for Vomiting, Fever or Acid Reflux Narrative Narrative: Patient presents with chest pain that has been intermittent over the last 3 weeks. Patient states it feels like a pressure and heaviness. Patient states it is over the substernal area. Patient states nothing makes it better. Patient states that it comes on with exertion at times. Patient admits to some nausea but denies any vomiting. Patient admits to some shortness of breath and a slight cough. Patient also admits to some diaphoresis. Patient states she feels intermittent palpitations and lightheadedness. Patient states she has a family history of her grandfather and uncles on her father's side who had coronary artery disease in their 40s and 50s. Patient states she was recently evaluated at [facility] and everything was normal at that time. Patient was discharged home. CVD Risk Factors: Positive for Family History 1' </=55; Negative for Hypertension, Diabetes, Hypercholesterolemia or Smoking PE Risk Factors: Positive for Recent Travel/Surgery and Cancer; Negative for Recent Immobilization, Prior DVT or PE or OCP + Smoking + >/=35 [facility] Medical History Anxiety Climacteric Depression Headache, migraine Lipoma Shoulder lesion, left Home Medications fluoxetine 10 mg capsule 20 mg PO DAILY 09/11/18 [History Last Taken 09/22/19] zolpidem 10 mg tablet 12.5 mg PO QHS PRN Insomnia 08/26/19 [History Last Taken 09/21/19] cholecalciferol (vitamin D3) 50 mcg (2,000 unit) capsule 2,000 unit PO DAILY 01/14/20 [History Last Taken Unknown] alprazolam 0.5 mg tablet 1 mg PO DAILY PRN Anxiety 10/16/21 [History Last Taken Unknown] amitriptyline 50 mg tablet 75 mg PO QHS 10/16/21 [History Last Taken Unknown] rimegepant 75 mg disintegrating tablet (Nurtec ODT) 75 mg PO DAILY PRN Migraine Headache 03/20/22 [History Last Taken Unknown] L norgest/E estradiol-E estrad 0.15 mg-30 mcg (84)/10 mcg(7) tabs,3mos (Ashlyna) 1 tab PO DAILY #91 tabs 05/16/22 [Rx Last Taken Unknown] Allergy/AdvReac Type Severity Reaction Status Date / Time promethazine [From Phenergan] Allergy STOPPED Verified 06/12/22 19:12 BREATHING Family History Mother Depression Father Depression Hypertension Grandfather Heart disease Myocardial infarction Depression Grandmother Heart disease Surgical History History of bladder repair surgery History of cholecystectomy History of hysterectomy History of laparoscopy History of shoulder surgery Social History (Updated 06/12/22 @ 23:[address] 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 Constitutional Constitutional ED: Reports chills and subjective; Denies fever(s) Eyes Eyes: Denies blurry vision or change in vision ENT ENT ED: Reports sore throat; Denies rhinorrhea Cardiovascular Cardiovascular: Reports chest pain and palpitations Respiratory/Chest Respiratory/Chest: Reports cough and dyspnea Gastrointestinal Gastrointestinal: Reports nausea; Denies abdominal pain or vomiting Genitourinary Genitourinary ED: Denies dysuria or hematuria Musculoskeletal Musculoskeletal: Denies back pain or neck pain Integumentary Reports rash; Denies abscess Neurologic Neurologic: Denies headache(s) or weakness Allergic/Immunologic Allergic/Immunologic ED: Denies mouth swelling or urticaria EXAM Physical Exam Const Vital Signs: 06/12/22 19:08 06/12/22 19:43 06/12/22 20:09 Temperature 97.9 F Temperature Source Temporal Pulse Rate 125 H 112 H Respiratory Rate 16 14 Blood Pressure 145/92 H 137/78 H Blood Pressure Mean 109 97 Pulse Ox 99 94 Oxygen Delivery Method Room Air Room Air Room Air 06/12/22 20:17 06/12/22 20:22 06/12/22 20:25 Temperature Temperature Source Pulse Rate 110 H 123 H 121 H Respiratory Rate Blood Pressure 124/74 H 66/51 L 88/52 L Blood Pressure Mean 56 64 Pulse Ox Oxygen Delivery Method 06/12/22 20:31 06/12/22 22:00 Temperature Temperature Source Pulse Rate 104 H 95 Respiratory Rate 18 Blood Pressure 108/73 99/82 H Blood Pressure Mean 84 87 Pulse Ox 96 Oxygen Delivery Method Room Air Positive well nourished and well developed General Appearance ED: well developed and NAD HEENT normocephalic and atraumatic Eyes PERRL and EOMs intact bilaterally Neck supple and no JVD Chest Wall Chest: tenderness sternum Resp normal respiratory effort and clear to auscultation bilaterally Effort and Inspection: Negative for respiratory distress Cardio regular rate, regular rhythm and no murmurs GI normal to inspection, nondistended, normoactive bowel sounds, soft to palpation, non-tender and non-distended Extremity normal to inspection General Extremety ED: Negative for edema or tenderness General Extremity: Negative for edema Neuro oriented x3, CN's II-XII intact bilaterally and no sensory deficits noted Sensorium / Orientation: awake and alert Motor Exam: strength 5/5 throughout Psych mental status grossly normal Heart Score History: Moderately Suspicious ECG: Nonspecific Repolarization Age: >45 - <65 years Risk Factors: 1 or 2 Risk Factors Troponin: </= Normal Limit Score: 4 MDM MDM MDM Narrative Medical decision making narrative: EKG was obtained. On my interpretation, it showed a sinus tachycardia with a rate of 111. PA interval and QRS interval were normal. QTc interval was prolonged at 625 ms. [place] was normal. There are nonspecific ST-T wave changes. CBC shows a mild leukocytosis of 12.3. Basic metabolic profile shows a mild hypokalemia of 3.2. High-sensitivity troponin was less than 3. PT with INR and PTT were within normal limits. TSH was normal. Because of the tachycardia and history of cancer and recent travel, CTA of the chest was ordered. There is no evidence of pulmonary embolism or aortic dissection. This was interpreted by the radiologist and reviewed by myself. Patient was given a sublingual nitroglycerin initially. Patient's blood pressure did drop after this and she did develop a headache. Patient was given IV fluids and Tylenol. Patient has a HEART score of 4. Because of this, I discussed the case with the hospitalist. Patient will be admitted for observation for further evaluation of her chest pain. Patient understood and was agreeable with the plan. All questions were answered. Lab Data Attestation: I reviewed the patient's lab results. Labs: Laboratory Results - last 24 hr 06/12/22 06/12/22 06/12/22 20:00 20:00 20:00 WBC 12.3 H RBC 4.54 Hgb 14.1 Hct 43.0 MCV 94.7 MCH 31.1 MCHC 32.8 RDW Std Deviation 43.4 RDW Coeff of [place] 12.4 Plt Count 303 MPV 9.1 Immature Gran % (Auto) 0.300 Neut % (Auto) 69.3 Lymph % (Auto) 24.1 [place] % (Auto) 5.0 Eos % (Auto) 0.7 Baso % (Auto) 0.6 Absolute Neuts (auto) 8.5 H Absolute Lymphs (auto) 2.96 Nucleated RBC % 0 PT 12.7 INR 1.0 APTT 30.4 Sodium 140 Potassium 3.2 L Chloride 108 H Carbon Dioxide 21.0 Anion Gap 11 BUN 17 Creatinine 1.08 H Estim Creat Clear Calc 47.55 Est GFR (MDRD) Af Amer 69 Est GFR (MDRD) Non-Af 57 L BUN/Creatinine Ratio 15.7 Glucose 125 H Calcium 8.8 Troponin I High Sens < 3 L TSH 06/12/22 20:00 WBC RBC Hgb Hct MCV MCH MCHC RDW Std Deviation RDW Coeff of Barbara Plt Count MPV Immature Gran % (Auto) Neut % (Auto) Lymph % (Auto) [place] % (Auto) Eos % (Auto) Baso % (Auto) Absolute Neuts (auto) Absolute Lymphs (auto) Nucleated RBC % PT INR APTT Sodium Potassium Chloride Carbon Dioxide Anion Gap BUN Creatinine Estim Creat Clear Calc Est GFR (MDRD) Af Amer Est GFR (MDRD) Non-Af BUN/Creatinine Ratio Glucose Calcium Troponin I High Sens TSH 1.00 Radiography Diagnostic Testing: Clinical Impression(s) from Imaging Studies Chest CTA 06/12/22 20:05 IMPRESSION: Normal CTA chest examination, without a demonstrated pulmonary embolism or arterial dissection. Electronically Signed: Kamar Pierce MD at 21:35 EDT , EKG Initial EKG: Interpretation: Sinus Tachycardia (111) and Non-Specific ST Changes Prior EKG tracings: available for review Prior: Unchanged (06/07/2020) Discharge Plan Triage Chief Complaint: Chest Pain ED Provider: Albino Calix Dx/Rx/DC Orders Clinical Impression: Chest pain Prescriptions: No Action zolpidem 10 mg tablet 12.5 mg PO QHS PRN (Reason: Insomnia) fluoxetine 10 MG capsule 20 mg PO DAILY alprazolam 0.5 mg tablet 1 mg PO DAILY PRN (Reason: Anxiety) amitriptyline 50 mg tablet 75 mg PO QHS cholecalciferol (vitamin D3) 2,000 UNIT capsule 2,000 unit PO DAILY Nurtec ODT 75 mg tablet,disintegrating 75 mg PO DAILY PRN (Reason: Migraine Headache) Label Comments: take 1 tablet by mouth once daily if needed L norgest/e.estradiol-e.estrad [Ashlyna] 0.15 mg-30 mcg (84)/10 mcg (7) tablets,dose pack,3 month 1 tab PO DAILY Qty: 91 0RF Primary Care Provider: Julián Green Referrals: Julián Green DO [Primary Care Provider] - Disposition Disposition: Acute Care [facility]
[2022-06-12] MEDS: Aspirin 81 MG TAB.CHEW 324 MG PO (20:16)
[2022-06-12] MEDS: Nitroglycerin SL (ED/IMG/CATH) 0.4 MG TABLET SL (20:17)
[2022-06-12 20:26] LABS: Absolute Lymphocyte Count 2.96 X10^3/uL (0.83-4.51); Absolute Neutrophil Count 8.5 X10^3/uL (2.0-7.7); Basophil# 0.07 X10^3/uL; Basophil% 0.6 % (0-1); Eosinophil# 0.08 X10^3/uL; Eosinophils% 0.7 % (0-5); Hemoglobin 14.1 g/dL (12.0-15.0); Lymphocyte # 2.96 X10^3/ul (0.83-4.51); Lymphocyte % 24.1 % (19-41); Mean Corp Hgb Conc 32.8 g/dL (32-36); Mean Corpuscular Hgb 31.1 pg (27.0-32.0); Mean Corpuscular Volume 94.7 fL (81-99); Mean Platelet Vol. 9.1 fl (6.2-12.0); Monocyte# 0.62 X10^3/uL; NRBC Flagged by Analyzer 0 % (0-5); Neutrophil # 8.52 X10^3/uL (2.7-7.7); Neutrophil % 69.3 % (47-70); Platelet Count 303 K/mm3 (150-450); RBC Distribution Width CV 12.4 % (11.6-14.6); RBC Distribution Width SD 43.4 fl (35.1-43.9); Red Blood Count 4.54 M/mm3 (4.2-5.4); White Blood Count 12.3 K/mm3 (4.4-11.0)
[2022-06-12 20:43] LABS: Anion Gap 11 (5-15); BUN 17 mg/dL (7-18); BUN/Creat Ratio 15.7 RATIO (10-20); Calcium,Total 8.8 mg/dL (8.5-10.1); Chloride 108 mmol/L (98-107); Creatinine, Serum 1.08 mg/dL (0.55-1.02); EST Glomerular Filtration Rate 57 mL/min (>60); Est Glom Filt Rate - Afr Amer 69 mL/min (>60); Estimated Creatinine Clearance 47.55 ml/min; Glucose 125 mg/dL (74-106); Potassium 3.2 mmol/L (3.5-5.1); Sodium Level 140 mmol/L (136-145); Troponin-I HS (w/2H Reflex) < 3 pg/mL (3.0-54.0)
[2022-06-12 20:45] LABS: Prothrombin Time (Protime)PT. 12.7 SECONDS (11.7-14.9)
[2022-06-12 20:46] LABS: Partial Thromboplast Time 30.4 Seconds (24.1-36.2)
[2022-06-12] MEDS: Potassium Chloride Oral Tablet 20 MEQ 40 MEQ PO (21:29)
[2022-06-12] MEDS: Acetaminophen 500 MG Tablet 1000 MG PO (22:18)
[2022-06-12] MEDS: 0.9% Normal Saline 1,000 ML 1000 ML IV (22:19)
[2022-06-12 22:22] LABS: Reflex Troponin-HS? (from REC) Y
--- NOTE | 2022-06-12 23:12 | PCM.HP.STD ---
HPI - General General Date of Admission: 06/12/22 Date of Service: 06/12/22 Chief Complaint: Chest pain, palpitations, LH, nausea, dyspnea, diaphoresis. HPI Narrative The patient is a 47 y/o F w/ PMHx: Anxiety and Deperssion, Chronic migraines, Hx COVID-19 illness ~ 1 year prior with recovery since who presents to the [facility] ED on 06/12/22 with history of chest discomfort has been intermittent over the last 3 weeks described as a pressure and heaviness over the substernal area with no improvement with any interventions reporting that sometimes it comes on with exertion with associated nausea with no emesis and occasionally associated dyspnea with slight cough as well as diaphoresis with intermittent sensations of palpitations and lightheadedness with recent evaluation at [facility] ED with work-up unremarkable at that time with discharge to home however she is had ongoing symptoms prompting ED reevaluation. She no notes that the pain currently is aching in 2009 in severity. She does state at its worst it has been 8 out of 10 in severity and become severe pressure-like in nature with radiation to bilateral upper jaw. She does report that she had a recent echocardiogram at the [facility] the prior Saturday that was unremarkable per report except increased EF 74%. Work-up in the ED included T97.9, heart rate initially 125 with most recent repeat 95, BP initially 145/92 with most recent repeat 99/82, respiratory rate 16, 94 to 99% on room air, CBC with WC 12.3, hemoglobin 14.1, platelets 303 with left shift, unremarkable coags, BMP with potassium 3.2, chloride 108, BUN/Cr 17/1.08, glucose 125, troponin less than 3, TSH 1.0, CTPA with normal unremarkable CTA chest without any demonstrated PE or arterial dissection, EKG with sinus tachycardia with mildly prolonged QTC [address]-T wave changes. [facility] Medical History Anxiety Climacteric Depression Headache, migraine Lipoma Shoulder lesion, left Home Medications fluoxetine 10 mg capsule 20 mg PO DAILY 09/11/18 [History Last Taken 09/22/19] zolpidem 10 mg tablet 12.5 mg PO QHS PRN Insomnia 08/26/19 [History Last Taken 09/21/19] cholecalciferol (vitamin D3) 50 mcg (2,000 unit) capsule 2,000 unit PO DAILY 01/14/20 [History Last Taken Unknown] alprazolam 0.5 mg tablet 1 mg PO DAILY PRN Anxiety 10/16/21 [History Last Taken Unknown] amitriptyline 50 mg tablet 75 mg PO QHS 10/16/21 [History Last Taken Unknown] rimegepant 75 mg disintegrating tablet (Nurtec ODT) 75 mg PO DAILY PRN Migraine Headache 03/20/22 [History Last Taken Unknown] L norgest/E estradiol-E estrad 0.15 mg-30 mcg (84)/10 mcg(7) tabs,3mos (Ashlyna) 1 tab PO DAILY #91 tabs 05/16/22 [Rx Last Taken Unknown] Allergy/AdvReac Type Severity Reaction Status Date / Time promethazine [From Phenergan] Allergy STOPPED Verified 06/12/22 19:12 BREATHING Family History Mother Depression Father Depression Hypertension Grandfather Heart disease Myocardial infarction Depression Grandmother Heart disease Surgical History History of bladder repair surgery History of cholecystectomy History of hysterectomy History of laparoscopy History of shoulder surgery Social History (Updated 06/12/22 @ 23:[address] 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 HEENT: Eyes: No visual loss, blurred vision, double vision or yellow sclerae. Ears, Nose, Throat: No hearing loss, sneezing, congestion, runny nose or sore throat. SKIN: No rash or itching, lesions, wounds. CARDIOVASCULAR: + chest pain, chest pressure or chest discomfort, palpitations, No edema, orthopnea, syncopal events. RESPIRATORY: + Shortness of breath, cough without marked sputum, No wheezing, hemoptysis. GASTROINTESTINAL: No anorexia, nausea, vomiting or diarrhea, abdominal pain, melena, BRBPR. GENITOURINARY: No dysuria, frequency, urgency or retention. NEUROLOGICAL: + Hx migraines, No headache, syncope, paralysis, ataxia, numbness or tingling in the extremities, focal weakness, change in bowel or bladder control, seizure. MUSCULOSKELETAL: No muscle, back pain, joint pain or stiffness. HEMATOLOGIC: No anemia, bleeding or bruising. LYMPHATICS: No enlarged nodes. No history of splenectomy. PSYCHIATRIC: + history of depression or anxiety. ENDOCRINOLOGIC: + reports of sweating, cold or heat intolerance. No polyuria or polydipsia. ALLERGIES: No history of asthma, hives, eczema or rhinitis. Vital Signs Vital Signs Vital Signs: 06/12/22 19:08 06/12/22 19:43 06/12/22 20:09 Temperature 97.9 F Temperature Source Temporal Pulse Rate 125 H 112 H Respiratory Rate 16 14 Blood Pressure 145/92 H 137/78 H Blood Pressure Mean 109 97 Pulse Ox 99 94 Oxygen Delivery Method Room Air Room Air Room Air 06/12/22 20:17 06/12/22 20:22 06/12/22 20:25 Temperature Temperature Source Pulse Rate 110 H 123 H 121 H Respiratory Rate Blood Pressure 124/74 H 66/51 L 88/52 L Blood Pressure Mean 56 64 Pulse Ox Oxygen Delivery Method 06/12/22 20:31 06/12/22 22:00 Temperature Temperature Source Pulse Rate 104 H 95 Respiratory Rate 18 Blood Pressure 108/73 99/82 H Blood Pressure Mean 84 87 Pulse Ox 96 Oxygen Delivery Method Room Air Weight Weight: 140 lb Body Mass Index (BMI) 26.4 Physical Exam Narrative Physical Examination: General: Awake, alert, oriented x 3 and cooperative, seated upright in ED bed in no apparent distress, currently reports chest discomfort improved, located only in the substernal region 2 out of 10 in severity currently described as aching only. Skin: Normal color, normal turgor, no icterus, no cyanosis. HEENT: AT/NC, EOMI, PERRLA, MMM, no carotid bruits or JVD noted. Lungs: Diminished, greater bases, moderate effort no rales, ronchi or wheezing. Heart: Currently improved, regular rate and rhythm; no gallop, rub audible. Abdomen: Soft, overweight, NTTP, ND, distant normal BS, no HSM. Extremities: No cyanosis, clubbing, or edema. Neurological: Patient awake, alert, oriented as noted, cognitive function intact; pupils equally reactive to light and accommodation, cranial nerves II-XII grossly normal, moving all 4 extremities, no focal deficits, strength mildly global decrease secondary to acute presentation Psychiatric: Affect appears fatigued, stressed, no acute evidence of depressive or anxiety feelings. Results Lab / Micro Data Result Diagrams: 06/12/22 20:00 06/12/22 20:00 Labs: Laboratory Results - last 24 hr 06/12/22 20:00: WBC 12.3 H, RBC 4.54, Hgb 14.1, Hct 43.0, MCV 94.7, MCH 31.1, MCHC 32.8, RDW Std Deviation 43.4, RDW Coeff of Barbara 12.4, Plt Count 303, MPV 9.1, Immature Gran % (Auto) 0.300, Neut % (Auto) 69.3, Lymph % (Auto) 24.1, [place] % (Auto) 5.0, Eos % (Auto) 0.7, Baso % (Auto) 0.6, Absolute Neuts (auto) 8.5 H, Absolute Lymphs (auto) 2.96, Nucleated RBC % 0 06/12/22 20:00: Sodium 140, Potassium 3.2 L, Chloride 108 H, Carbon Dioxide 21.0, Anion Gap 11, BUN 17, Creatinine 1.08 H, Estim Creat Clear Calc 47.55, Est GFR (MDRD) Af Amer 69, Est GFR (MDRD) Non-Af 57 L, BUN/Creatinine Ratio 15.7, Glucose 125 H, Calcium 8.8, Troponin I High Sens < 3 L 06/12/22 20:00: PT 12.7, INR 1.0, APTT 30.4 06/12/22 20:00: TSH 1.00 Radiology Impression Chest CTA 06/12/22 20:05 IMPRESSION: Normal CTA chest examination, without a demonstrated pulmonary embolism or arterial dissection. Electronically Signed: Kamar Pierce MD at 21:35 EDT Reading Location ID and State: [facility] / [place] , Service support , Assessment & Plan Assessment/Plan (1) Chest pain: PLAN: Plan The patient is a 47 y/o F w/ PMHx: Anxiety and Deperssion, Chronic migraines who presents to the [facility] ED on 06/12/22 with history of chest discomfort has been intermittent over the last 3 weeks described as a pressure and heaviness over the substernal area with no improvement with any interventions reporting that sometimes it comes on with exertion with associated nausea with no emesis and occasionally associated dyspnea with slight cough as well as diaphoresis with intermittent sensations of palpitations and lightheadedness with recent evaluation at [facility] ED with work-up unremarkable at that time with discharge to home however she is had ongoing symptoms prompting ED reevaluation. #1. Chest Pain, unclear etiology: ED evaluation with troponin less than 3, TSH 1.0, CTPA with normal unremarkable CTA chest without any demonstrated PE or arterial dissection, EKG with sinus tachycardia with mildly prolonged QTC [address]-T wave changes. Patient with recent outside facility [facility] ED evaluation with normal chest x-ray, troponin and delta troponin both unremarkable as well as recent echocardiogram at the [facility] the Saturday prior noted to be unremarkable aside increased EF 74% per report. 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 If repeat EKG and enzymes remain unremarkable will obtain AM stress testing; however, even if negative may require cardiology evaluation given ongoing patient's significant symptoms and underlying family history. FLP in AM. Replace K, obtain mag level. ASA, NG, morphine. #2. Hypokalemia: Admission K+ 3.2, magnesium level requested, supplementation given, repeat level in AM. #3. Anxiety and depression: We will continue patient home fluoxetine, low-dose alprazolam as well as Ambien regimen. #4. Chronic migraines: We will continue patient home Nurtec ODT regimen as well as amitriptyline. #5. DVT prophylaxis: Low risk, encourage ambulation. Charges/Coding Visit Charges OBSV E&M: 82738 Initial observation care L3
[2022-06-12 23:36] LABS: Magnesium 1.9 mg/dL (1.6-2.6)
[2022-06-12 23:37] LABS: Troponin-I HS 4 pg/mL (3.0-54.0)
[2022-06-13] VITALS (9 sets, daily range): BP systolic 113–139; BP diastolic 68–76; PULSE 77–98; RESP 16–18; TEMP 36.6–37.4; O2SAT 96–99; BMI 27.8
--- NOTE | 2022-06-13 00:54 | EKG12_ITS ---
Test Reason : CP Blood Pressure : / mmHG Vent. Rate : 083 BPM Atrial Rate : 083 BPM P-R Int : 144 ms QRS Dur : 078 ms QT Int : 374 ms P-R-T Axes : 065 063 034 degrees QTc Int : 439 ms Normal sinus rhythm Low voltage QRS Borderline ECG Confirmed by BHASKAR CHAING, HUONG ([id number]), art editor KIRSTY VEGA ([id number]) on 06/14/2022 9:26:51 AM Referred By: Millie Meier Confirmed By:HUONG MURO MD
[2022-06-13] MEDS: 0.9% Normal Saline 1,000 ML 100 ML IV ×2 (01:22→10:49)
[2022-06-13] MEDS: Potassium Chloride Oral Tablet 20 MEQ 40 MEQ PO (01:30)
[2022-06-13] MEDS: Amitriptyline 25 MG Tablet 75 MG PO (01:30)
[2022-06-13] MEDS: Zolpidem Tartrate 5 MG Tablet 10 MG PO (01:31)
[2022-06-13 02:04] LABS: Absolute Lymphocyte Count 2.73 X10^3/uL (0.83-4.51); Absolute Neutrophil Count 6.1 X10^3/uL (2.0-7.7); Basophil# 0.05 X10^3/uL; Basophil% 0.5 % (0-1); Eosinophil# 0.08 X10^3/uL; Eosinophils% 0.8 % (0-5); Hemoglobin 12.5 g/dL (12.0-15.0); Lymphocyte # 2.73 X10^3/ul (0.83-4.51); Lymphocyte % 28.4 % (19-41); Mean Corp Hgb Conc 33.8 g/dL (32-36); Mean Corpuscular Hgb 31.5 pg (27.0-32.0); Mean Corpuscular Volume 93.2 fL (81-99); Mean Platelet Vol. 8.9 fl (6.2-12.0); Monocyte# 0.58 X10^3/uL; NRBC Flagged by Analyzer 0 % (0-5); Neutrophil # 6.14 X10^3/uL (2.7-7.7); Neutrophil % 63.9 % (47-70); Platelet Count 245 K/mm3 (150-450); RBC Distribution Width CV 12.4 % (11.6-14.6); RBC Distribution Width SD 42.9 fl (35.1-43.9); Red Blood Count 3.97 M/mm3 (4.2-5.4); White Blood Count 9.6 K/mm3 (4.4-11.0)
[2022-06-13 02:26] LABS: Troponin-I HS 4 pg/mL (3.0-54.0)
[2022-06-13 02:35] LABS: ALB/GLOB Ratio 0.9 RATIO (0.9-2.4); AST(SGOT) 13 U/L (15-37); Alanine Aminotransfer ALT/SGPT 33 U/L (13-56); Alkaline Phosphatase 70 U/L (45-117); Anion Gap 7 (5-15); BUN 16 mg/dL (7-18); BUN/Creat Ratio 17.9 RATIO (10-20); Calcium,Total 7.9 mg/dL (8.5-10.1); Chloride 109 mmol/L (98-107); Cholesterol 228 mg/dL (200); EST Glomerular Filtration Rate 71 mL/min (>60); Est Glom Filt Rate - Afr Amer 86 mL/min (>60); Estimated Creatinine Clearance 57.06 ml/min; Globulin 3.3 g/dL (2.2-4.2); Glucose 93 mg/dL (74-106); High Density Lipoprotein 56 mg/dL; Potassium 3.9 mmol/L (3.5-5.1); Protein, Total 6.3 g/dL (6.4-8.2); Sodium Level 141 mmol/L (136-145); Triglycerides 229 mg/dL; Very Low Density Lipoprotein 46 mg/dL (5-40)
--- NOTE | 2022-06-13 05:55 | STEWCON_ITS ---
Reason For Study: Chest pain Stress Results Protocol: Luis Protocol WITH DEFINITY Maximum Predicted HR: 171 bpm Target HR: 145 bpm % Maximum Predicted HR: 94 % Heart Stage Duration Rate BP Comment (mm:ss) (bpm) 3 CC DEFINITY FOR ENTIRE TEST, CHEST PAIN BEFORE PROCEDURE STARED, BASELINE 96 112/82RECEIVED 2MG OF MS ON THE FLOOR STAGE 1 3:00 139 120/60 STAGE 2 3:00 142 128/64FEELS SOB, A LITTLE DISCOMFORT IN THE CENTER/LOWER CHEST STAGE 3 2:15 160 128/64FATIGUED CAN STILL FEEL SOME DISCOMFORT IN THE CENTER OF CHEST, BUT NOT RECOVERY 10 118/78BAD Stress Duration: 8:15 mm:ss Maximum Stress HR: 160 bpm Baseline Echocardiogram Findings Stress Echo Wall motion Data Resting WM Intermediate WM Stress WM ECHO/Stress Test Echo W/Contrast Interpretation Summary Exercise stress echocardiogram. 47-year-old lady with a history of chest pain and anxiety. Stress protocol: Resting EKG demonstrates normal sinus rhythm with a rate of 96 bpm normal inter vals are noted resting blood pressure is 112/82 mmHg. The patient exercised according to the r egular Luis protocol for total duration of 8 minutes and 15 seconds. Patient completed 2 minutes and 15 seconds into stage III of the Luis protocol the maximum heart rate attained was 162 bpm whi ch was 94% of max impacted heart rate the maximum workload was 10.[address] was terminated due to fatigue. At rest and during exertion there were no ST or T wave changes note d to suggest ischemia the peak blood pressure is 128/64 which remained flat throughout the testing. T he patient did experience some chest discomfort before the procedure started and persisted thr oughout. The above did not appear to be indicative of angina. Stress echocardiogram. Resting echocardiographic images were obtained with Defi nity enhancement it demonstrated preserved ejection fraction of 55% no wall motion abnormalities we re noted. During stress there was persistence of contraction with reduction in low ventricular c avity size peaking ejection fraction of 60%. No wall motion abnormalities were noted. Conclusion: Normal exercise stress echo with no evidence of ischemia at a high workload. Atypical chest pain noted. Ordering Physician: Millie Meier Performed By: Catarina Sánchez RDCS
[2022-06-13] MEDS: Aspirin E.C. 81 MG Tablet PO (08:14)
[2022-06-13] MEDS: Morphine 2 MG/ML Syringe IV ×3 (08:14→12:52)
[2022-06-13] MEDS: FLUoxetine 20 MG Capsule PO (10:49)
--- NOTE | 2022-06-13 16:24 | DCINST_ITS ---
Discharge Instructions Diet Discharge Diet: No restrictions Activity Discharge Activity: Return to Normal Activity Weight Bearing Status: Full weight bearing Follow Up Care Test Results: Test results from this visit will be discussed in further detail at your follow- up appointment, if applicable. Discharge Plan Admission Admit Date/Time: 06/12/22 23:13 Primary Reason for Your Visit: chest pain Attending Provider: Chris Bautista Primary Care Provider: Julián Green Consulting Providers: Millie Meier Discharge Orders/Prescriptions Prescriptions: New methylprednisolone [Medrol (Alexei)] 4 mg tablets,dose pack 4 mg PO DAILY Qty: 21 0RF Rx Instructions: take as directed Continued zolpidem 10 mg tablet 12.5 mg PO QHS PRN (Reason: Insomnia) fluoxetine 10 MG capsule 20 mg PO DAILY alprazolam 0.5 mg tablet 1 mg PO DAILY PRN (Reason: Anxiety) amitriptyline 50 mg tablet 75 mg PO QHS cholecalciferol (vitamin D3) 2,000 UNIT capsule 2,000 unit PO DAILY Nurtec ODT 75 mg tablet,disintegrating 75 mg PO DAILY PRN (Reason: Migraine Headache) Label Comments: take 1 tablet by mouth once daily if needed L norgest/e.estradiol-e.estrad [Ashlyna] 0.15 mg-30 mcg (84)/10 mcg (7) tablets,dose pack,3 month 1 tab PO DAILY Qty: 91 0RF Referrals / Follow Up: Julián Green DO [Primary Care Provider] - Within 2 Weeks Disposition Disposition (needs filled in before D/C Order can be placed): Home, Self Care
--- NOTE | 2022-06-13 19:56 | DS.PCM_ITS ---
Providers Date of Admission: 06/12/22 Date of Discharge: 06/13/22 Primary Care Physician: Dr. Julián Green DO Reason For Visit: CHEST PAIN Diagnosis Discharge Diagnosis (1) Chest pain: Status: Acute Code(s): R07.9 - Chest pain, unspecified Plan 1. Chest pain secondary to costochondritis #2 chronic depression #3 chronic anxiety #4 chronic migraine cephalgia Medications at Discharge Home Medications fluoxetine 10 mg capsule 20 mg PO DAILY 09/11/18 zolpidem 10 mg tablet 12.5 mg PO QHS PRN Insomnia 08/26/19 cholecalciferol (vitamin D3) 50 mcg (2,000 unit) capsule 2,000 unit PO DAILY 01/14/20 alprazolam 0.5 mg tablet 1 mg PO DAILY PRN Anxiety 10/16/21 amitriptyline 50 mg tablet 75 mg PO QHS 10/16/21 rimegepant 75 mg disintegrating tablet (Nurtec ODT) 75 mg PO DAILY PRN Migraine Headache 03/20/22 L norgest/E estradiol-E estrad 0.15 mg-30 mcg (84)/10 mcg(7) tabs,3mos (Ashlyna) 1 tab PO DAILY #91 tabs 05/16/22 methylprednisolone 4 mg tablets in a dose pack (Medrol (Alexei)) 4 mg PO DAILY #21 tabs 06/13/22 Hospital Course Operations None Procedures - (Echo stress) Summary of Care Provided Minutes Spent on Discharge: 30 Hospital Course: This 47-year-old white female was seen in the emergency room at [facility] with chief complaint of chest pain that had been intermittent over the last 3 weeks. Patient recently had been evaluated at an outside emergency room and after a work-up there had been discharged home-they told the patient that the chest pain was likely to be musculoskeletal in nature. EKG was obtained in the emergency room here and showed no acute ischemic changes, CBC showed a slightly elevated white count at 12.3, CT of the chest was obtained and showed no evidence of pulmonary embolism or aortic dissection. Patient was given sublingual nitroglycerin initially but her blood pressure dropped and she developed a headache. She was given IV fluids and Tylenol, she was placed in observation status on PCU, serial cardiac enzymes were obtained and remain normal, she had an echo stress performed on 06/13/2022 which did not show any abnormality. On my examination of the patient, I was able to reproduce the patient's chest pain on palpation of the patient's chest wall near the costochondral junction on the right. I felt that the patient's pain was most likely due to costochondritis. On 06/13/2022, patient was seen and examined: On examination she appeared in good health and spirits, she does not appear to be in any distress. Vital signs as documented. Skin warm and dry and without overt rashes. Neck without JVD, thyroid appears normal, trachea is midline, neck is supple. Lungs clear, normal air movement was noted. Heart exam notable for regular rhythm, normal sounds and absence of murmurs, rubs or gallops. Abdomen unremarkable and without evidence of organomegaly, masses, or abdominal aortic enlargement, bowel sounds are present in all 4 quadrants, no abdominal tenderness was noted. Extremities none dematous, no cyanosis was noted, no clubbing was noted. Neuro: Cranial nerves II through XII are grossly intact, no focal motor deficits were noted, sensation to light touch and pinprick is intact, motor exam 5/5 throughout. Psych: Patient is alert and oriented x3, she does not appear anxious or depressed, she does not appear agitated. On 06/13/2022, patient was discharged home in stable condition Weight / BMI Weight Weight: 66.9 kg Body Mass Index (BMI) 27.8 ABG / Lab / Microbiology Data Result Diagrams: 06/13/22 01:50 06/13/22 01:50 Laboratory: Laboratory Results - last 24 hr 06/12/22 20:00: WBC 12.3 H, RBC 4.54, Hgb 14.1, Hct 43.0, MCV 94.7, MCH 31.1, MCHC 32.8, RDW Std Deviation 43.4, RDW Coeff of Barbara 12.4, Plt Count 303, MPV 9.1, Immature Gran % (Auto) 0.300, Neut % (Auto) 69.3, Lymph % (Auto) 24.1, [place] % (Auto) 5.0, Eos % (Auto) 0.7, Baso % (Auto) 0.6, Absolute Neuts (auto) 8.5 H, Absolute Lymphs (auto) 2.96, Nucleated RBC % 0 06/12/22 20:00: Sodium 140, Potassium 3.2 L, Chloride 108 H, Carbon Dioxide 21.0, Anion Gap 11, BUN 17, Creatinine 1.08 H, Estim Creat Clear Calc 47.55, Est GFR (MDRD) Af Amer 69, Est GFR (MDRD) Non-Af 57 L, BUN/Creatinine Ratio 15.7, Glucose 125 H, Calcium 8.8, Troponin I High Sens < 3 L 06/12/22 20:00: PT 12.7, INR 1.0, APTT 30.4 06/12/22 20:00: TSH 1.00 06/12/22 22:50: Troponin I High Sens 4 06/12/22 22:50: Magnesium 1.9 06/12/22 23:25: COVID-19 (CLARA) Not Detected 06/13/22 01:50: WBC 9.6, RBC 3.97 L, Hgb 12.5, Hct 37.0, MCV 93.2, MCH 31.5, MCHC 33.8, RDW Std Deviation 42.9, RDW Coeff of Barbara 12.4, Plt Count 245, MPV 8.9, Immature Gran % (Auto) 0.400, Neut % (Auto) 63.9, Lymph % (Auto) 28.4, [place] % (Auto) 6.0, Eos % (Auto) 0.8, Baso % (Auto) 0.5, Absolute Neuts (auto) 6.1, Absolute Lymphs (auto) 2.73, Nucleated RBC % 0 06/13/22 01:50: Sodium 141, Potassium 3.9, Chloride 109 H, Carbon Dioxide 25.0, Anion Gap 7, BUN 16, Creatinine 0.90, Estim Creat Clear Calc 57.06, Est GFR (MDRD) Af Amer 86, Est GFR (MDRD) Non-Af 71, BUN/Creatinine Ratio 17.9, Glucose 93, Calcium 7.9 L, Total Bilirubin 0.10 L, AST 13 L, ALT 33, Alkaline Phosphatase 70, Total Protein 6.3 L, Albumin 3.0 L, Globulin 3.3, Albumin/Globulin Ratio 0.9, Triglycerides 229 H, Cholesterol 228 H, LDL Cholesterol 126, VLDL Cholesterol 46 H, HDL Cholesterol 56 06/13/22 01:50: Troponin I High Sens 4 Radiography Diagnostic Testing: Radiology Impression Chest CTA 06/12/22 20:05 IMPRESSION: Normal CTA chest examination, without a demonstrated pulmonary embolism or arterial dissection. Electronically Signed: Kamar Pierce MD at 21:35 EDT , Stress Echocardiogram 06/13/22 05:55 Interpretation Summary Exercise stress echocardiogram. 47-year-old lady with a history of chest pain and anxiety. Stress protocol: Resting EKG demonstrates normal sinus rhythm with a rate of 96 bpm normal intervals are noted resting blood pressure is 112/82 mmHg. The patient exercised according to the regular Luis protocol for total duration of 8 minutes and 15 seconds. Patient completed 2 minutes and 15 seconds into stage III of the Luis protocol the maximum heart rate attained was 162 bpm which was 94% of max impacted heart rate the maximum workload was 10.1 metabolic equivalents. The test was terminated due to fatigue. At rest and during exertion there were no ST or T wave changes noted to suggest ischemia the peak blood pressure is 128/64 which remained flat throughout the testing. The patient did experience some chest discomfort before the procedure started and persisted throughout. The above did not appear to be indicative of angina. Stress echocardiogram. Resting echocardiographic images were obtained with Definity enhancement it demonstrated preserved ejection fraction of 55% no wall motion abnormalities were noted. During stress there was persistence of contraction with reduction in low ventricular cavity size peaking ejection fraction of 60%. No wall motion abnormalities were noted. Conclusion: Normal exercise stress echo with no evidence of ischemia at a high workload. Atypical chest pain noted. Ordering Physician: Millie Meier Performed By: Catarina Sánchez RDCS D/C Instructions Discharge Diet: No restrictions Weight Bearing Status: Full weight bearing Meaningful Use Info Meaningful Use Diagnoses (Choose all that apply): None applicable Discharge Plan Admission Admit Date/Time: 06/12/22 23:13 Primary Reason for Your Visit: chest pain Attending Provider: Chris Bautista Primary Care Provider: Julián Green Consulting Providers: Millie Meier Discharge Orders/Prescriptions Prescriptions: New methylprednisolone [Medrol (Alexei)] 4 mg tablets,dose pack 4 mg PO DAILY Qty: 21 0RF Rx Instructions: take as directed Continued zolpidem 10 mg tablet 12.5 mg PO QHS PRN (Reason: Insomnia) fluoxetine 10 MG capsule 20 mg PO DAILY alprazolam 0.5 mg tablet 1 mg PO DAILY PRN (Reason: Anxiety) amitriptyline 50 mg tablet 75 mg PO QHS cholecalciferol (vitamin D3) 2,000 UNIT capsule 2,000 unit PO DAILY Nurtec ODT 75 mg tablet,disintegrating 75 mg PO DAILY PRN (Reason: Migraine Headache) Label Comments: take 1 tablet by mouth once daily if needed L norgest/e.estradiol-e.estrad [Ashlyna] 0.15 mg-30 mcg (84)/10 mcg (7) tablets,dose pack,3 month 1 tab PO DAILY Qty: 91 0RF Referrals / Follow Up: Julián Green DO [Primary Care Provider] - Within 2 Weeks Disposition Disposition (needs filled in before D/C Order can be placed): Home, Self Care Charges/Coding Visit Charges OBSV E&M: 84433 Observation care discharge
== END 2022-06-13 16:26 | disposition home or self-care (01) ==
LOC: ED 23:33 → PCU 23:53
PROVIDERS: Admitting Provider Family Medicine; Emergency Provider Emergency Medicine; PCP Student in an Organized Health Care Education/Training Program; Visit Provider Internal Medicine
DX: M94.0 Chondrocostal junction syndrome [Tietze] (principal); E87.6 Hypokalemia; F41.9 Anxiety disorder, unspecified; R42 Dizziness and giddiness; G43.709 Chronic migraine without aura, not intractable, without status migrainosus; Z86.16 Personal history of COVID-19; F32.A Depression, unspecified; Z79.899 Other long term (current) drug therapy
CPT/HCPCS: 36415; 71275; 80048; 80053; 80061; 83735; 84443; 84484; 85025; 85610; 85730; 87635; 93005; 93017; 93350; 96361; 96374; 96376; 99218; 99285; J7030; Q9957; Q9967; A4216; C8928; G0378; U0003; U0005

== ENCOUNTER → 2022-07-06 | Outpatient (CLI) | payer OTHER, SELFPAY ==
[2022-07-06 13:52] LABS: Estradiol < 11.0 pg/mL; Thyroid Stim Hormone (TSH) 1.82 uIU/mL (0.358-3.74)
[2022-07-11 20:41] LABS: Testosterone Free <0.2 pg/mL (0.0-4.2)
== END | disposition home or self-care (01) ==
LOC: LAB 10:28
PROVIDERS: PCP Student in an Organized Health Care Education/Training Program; Referring Provider Obstetrics & Gynecology; Visit Provider Obstetrics & Gynecology
DX: N95.1 Menopausal and female climacteric states (principal)
CPT/HCPCS: 36415; 82670; 83001; 84402; 84439; 84443

== ENCOUNTER → 2023-01-09 | Outpatient (CLI) | payer OTHER, SELFPAY ==
--- NOTE | 2023-01-09 15:20 | BI_ITS ---
MAMMOGRAPHY - BILATERAL SCREENING REASON FOR EXAM: Female, 47 years old. Routine annual screening examination. PERTINENT HISTORY: Non-contributory. TECHNIQUE: Digital bilateral breast lorenzo (3D mammographic acquisition) in the CC and MLO projections. 2-D mediolateral oblique (MLO) and craniocaudad (CC) views of both breasts were obtained. CAD: Full Field Digital Mammography with Computer Added Detection was performed. COMPARISON: Comparison is made with prior study dated 12/22/2021 and 10/28/2020. FINDINGS: Breast Composition: There are scattered areas of fibroglandular density. There are no dominant masses or suspicious calcifications. Stable benign-appearing bilateral axillary. No other significant abnormalities are identified. There has been no significant change since the prior study. BI/SCRN MAMM (CAD)W/LORENZO BILAT IMPRESSION: Stable bilateral screening mammogram. Yearly follow-up mammogram recommended. (A) ASSESSMENT CATEGORY: BIRADS Category 2: Benign. A letter regarding these results will be sent to the patient by the facility within 30 days. Approximately 10% of breast cancers are not detected by mammography. A normal mammogram should not delay biopsy of a clinically suspicious abnormality. [id number] Electronically Signed: Brad Calabrese MD at 15:53 EST ,
== END | disposition home or self-care (01) ==
LOC: OPBI 15:19
PROVIDERS: PCP Student in an Organized Health Care Education/Training Program; Visit Provider Obstetrics & Gynecology
DX: Z12.31 Encounter for screening mammogram for malignant neoplasm of breast (principal)
CPT/HCPCS: 77063; 77067

== ENCOUNTER 2023-05-13 01:36 | Emergency (ER) | payer OTHER, SELFPAY ==
[2023-05-13 01:37] VITALS: BP 129/86; PULSE 96; RESP 16; TEMP 36.1; O2SAT 100; BMI 26.0
--- NOTE | 2023-05-13 02:15 | RAD_ITS ---
EXAM: XR LUMBOSACRAL SPINE, 2 OR 3 VIEWS CLINICAL INDICATION: pain TECHNIQUE: Frontal and lateral views of the lumbar spine and sacrum. COMPARISON: No relevant prior studies available. FINDINGS: VERTEBRAE: Unremarkable. Preserved vertebral body height. No fracture. No spondylolisthesis. Preservation of the normal lumbar lordosis. No significant facet arthropathy. DISC SPACES: No acute findings. Disc spaces are maintained. GASTROINTESTINAL TRACT: Unremarkable as visualized. Included bowel gas pattern is non-obstructive. RAD/Lumbar Spine 2 or 3 Views IMPRESSION: No evidence of lumbar spinal fracture or spondylolisthesis. Electronically Signed: Michael Neumann MD at 2:58 EDT ,
[2023-05-13] MEDS: Ondansetron ODT 4 MG Tablet PO (02:42)
[2023-05-13] MEDS: Morphine 4 MG/ML Syringe 6 MG IM (02:42)
[2023-05-13] MEDS: Orphenadrine 60 MG/2 ML Ampul IM (02:43)
[2023-05-13 03:03] VITALS: PULSE 70; RESP 17; O2SAT 99
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
== END 2023-05-13 03:13 | disposition home or self-care (01) ==
PROVIDERS: Emergency Provider Emergency Medicine; PCP Student in an Organized Health Care Education/Training Program; Visit Provider Emergency Medicine
DX: S39.012A Strain of muscle, fascia and tendon of lower back, initial encounter (principal); F32.A Depression, unspecified; F41.9 Anxiety disorder, unspecified; G43.909 Migraine, unspecified, not intractable, without status migrainosus; Z79.899 Other long term (current) drug therapy; Z90.49 Acquired absence of other specified parts of digestive tract; Z90.710 Acquired absence of both cervix and uterus; X58.XXXA Exposure to other specified factors, initial encounter; Y92.814 Boat as the place of occurrence of the external cause
CPT/HCPCS: 72100; 96372; 99282

== ENCOUNTER 2023-05-28 15:58 | Emergency (ER) | payer OTHER, SELFPAY ==
[2023-05-28 15:59] VITALS: BP 122/63; PULSE 101; RESP 19; TEMP 36.6; O2SAT 100; BMI 25.9
--- NOTE | 2023-05-28 16:15 | CT_ITS ---
STUDY: CT ABDOMEN AND PELVIS WITH CONTRAST REASON FOR EXAM: Female, 48 years old. rlq abd pain RADIATION DOSAGE (If Supplied By Facility): CTDIvol = ( 11.14 ) mGy, DLP = ( 443.10 ) mGycm TECHNIQUE: Transaxial images were obtained from the dome of the diaphragm to the symphysis pubis without oral contrast. Oral and amp; IV Gastrografin and amp; 100mL Isovue-370 was administered. Sagittal and coronal images were reconstructed. Individualized dose optimization techniques were used for this CT. COMPARISON: April 10, 2022 FINDINGS: Minor atelectasis within the dependent portion of the lungs.. The visualized portions of the heart are within normal limits. Mild nonspecific fatty infiltrated liver without mass or bile duct dilatation status post cholecystectomy. Normal spleen. Normal pancreas. Normal bilateral adrenal glands. Normal right kidney. Normal left kidney. Normal visualized stomach. Normal small intestine. Diffuse fecal retention noted throughout the colon. No definitive evidence for acute appendicitis Normal abdominal aorta. Normal inferior vena cava. Normal retroperitoneum. Nonspecific bladder distention.. Uterus not visualized status post hysterectomy. Small left ovarian cyst. Normal abdominal wall. Normal osseous structures. CT/Abdomen/Pelvis WITH Contrast IMPRESSION: Mild nonspecific fatty infiltrated liver postsurgical changes status post cholecystectomy. . No acute abnormalities. Specifically no evidence for acute appendicitis Status post hysterectomy. Small left ovarian cyst Electronically Signed: Toni Gore MD at 18:43 EDT ,
--- NOTE | 2023-05-28 16:17 | EDS_ITS ---
HPI HPI - GI History of Present Illness Chief Complaint: Abd Pain Narrative Narrative: 48-year-old female presenting with right lower quadrant abdominal pain. She states has had it for a few weeks. She had an office visit with Dr. Mann and a colonoscopy and there was some sort of mass on the appendix which was biopsied. This came back as benign mucosal lymphoid nodule. Patient continues to have pain in the right lower quadrant. Has not had a fever. She states the pain is worsening however. She states that Dr. Mann wanted to get a second opinion from a colorectal surgeon and [place] which is going to take another week. Apparently she was having issues getting a CT scan arranged so the patient has not had one yet. Patient states that Dr. Mann told her that if she wanted to see a [facility] doctor she would have to go in [place]. She states that Dr. Mann just told her to come to the emergency room here. [facility] Medical History Anxiety Climacteric COVID-19 (01/2022) Depression Fatigue Headache, migraine Lipoma Premenopausal menorrhagia Shoulder lesion, left SOBOE (shortness of breath on exertion) Home Medications rimegepant 75 mg disintegrating tablet (Nurtec ODT) 75 mg PO DAILY PRN Migraine Headache 03/20/22 [History Last Taken Unknown] meloxicam 15 mg tablet 15 mg PO DAILY 06/26/22 [History Last Taken Unknown] alprazolam 0.5 mg tablet 1 mg PO TID PRN Anxiety #45 tabs 08/20/22 [Rx Last Taken Unknown] amitriptyline 75 mg tablet 75 mg PO QHS #30 tabs 08/20/22 [Rx Last Taken Unknown] ondansetron HCl 4 mg tablet 4 mg PO Q8H PRN nausea and vomiting #60 tabs 08/20/22 [Rx Last Taken Unknown] albuterol sulfate 90 mcg/actuation aerosol inhaler 2 puff inhalation Q4H PRN shortness of breath or wheezing 09/28/22 [History Last Taken Unknown] alprazolam 1 mg tablet 1 mg PO BID PRN anxiety 09/28/22 [History Last Taken Unknown] clonazepam 1 mg tablet 1 mg PO TID PRN FLYING 09/28/22 [History Last Taken Unknown] fluoxetine 40 mg capsule 40 mg PO DAILY 09/28/22 [History Last Taken Unknown] ketorolac 10 mg tablet 10 mg PO Q6H PRN Pain 09/28/22 [History Last Taken Unknown] zolpidem 12.5 mg tablet,extended release,multiphase (Ambien CR) 12.5 mg PO QHS PRN Sleep 09/28/22 [History Last Taken Unknown] estradiol 0.1 mg/24 hr semiweekly transdermal patch See Rx Instructions .Route .COMPLEX #8 patches 02/10/23 [Rx Last Taken Unknown] methocarbamol 500 mg tablet 1,000 mg PO 4X/DAY PRN PRN Muscle pain/spasm #56 tabs 05/13/23 [Rx Last Taken Unknown] oxycodone-acetaminophen 5 mg-325 mg tablet (Percocet) 1 tab PO Q6H PRN pain 3 days #12 tabs 05/13/23 [Rx Last Taken Unknown] Allergy/AdvReac Type Severity Reaction Status Date / Time promethazine [From Phenergan] Allergy STOPPED Verified 05/28/23 15:59 BREATHING Family History Mother Depression Father Depression Hypertension Grandfather Heart disease [place] at age 50; fatal [place] at age 57; Myocardial infarction Paternal grandfather?2 MIs age 40s, of [place] age 60s; maternal grandfather- 2 MIs age 60s, CABG; Depression CAD (coronary artery disease) Maternal and paternal grandfather Grandmother Heart disease CHF (congestive heart failure) CAD (coronary artery disease) Myocardial infarction Paternal grandmother?several MIs and CABG; Uncle Myocardial infarction Father's identical twin?AR at age 40s; Surgical History History of bladder repair surgery History of cholecystectomy History of hysterectomy History of laparoscopy History of shoulder surgery Hx of tubal ligation Social History household members: spouse Smoking Status: Never smoker alcohol intake: current details: social substance use type: does not use caffeine: Yes what type of physical activity do you participate in: walking seatbelt use: always do you feel safe at home: Yes 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 Review of Systems ROS Unobtainable: Denies due to encephalopathy Constitutional Constitutional ED: Denies chills or fever(s) ENT ENT ED: Denies rhinorrhea or sore throat Cardiovascular Cardiovascular: Denies chest pain or palpitations Respiratory/Chest Respiratory/Chest: Denies cough or dyspnea Gastrointestinal Gastrointestinal: Reports abdominal pain, diarrhea and nausea Genitourinary Genitourinary ED: Denies dysuria or hematuria Musculoskeletal Musculoskeletal: Reports arthralgias; Denies back pain or myalgias Integumentary Denies abscess or Abrasions Neurologic Neurologic: Denies headache(s) or paresthesias Psychiatric Psychiatric: Denies anxiety or depression EXAM Physical Exam Const Vital Signs: 05/28/23 15:59 05/28/23 18:30 Temperature 97.8 F Temperature Source Temporal Pulse Rate 101 H 76 Respiratory Rate 19 H 16 Blood Pressure 122/63 H 110/71 Blood Pressure Mean 82 84 Pulse Ox 100 99 Oxygen Delivery Method Room Air Room Air Positive well nourished General Appearance ED: NAD; Negative for pallor HEENT Reports moist mucous membranes normocephalic Eyes PERRL and EOMs intact bilaterally Resp normal respiratory effort and clear to auscultation bilaterally Auscultation: Negative for rales, rhonchi or wheezes Cardio regular rate and regular rhythm GI Palpation: tender RLQ Neuro CN's II-XII intact bilaterally Sensorium / Orientation: alert Motor Exam: strength 5/5 throughout Psych mental status grossly normal Skin no wounds General Skin Exam: Negative for jaundice or pallor MDM MDM MDM Narrative Medical decision making narrative: Patient presenting with right lower quadrant abdominal pain. Apparently she has a mass on her appendix. This is then biopsied and is benign. Patient has continued abdominal pain and apparently Dr. Mann was not unable to get a CT scan performed on outpatient basis. She did give the patient some [place] is not helping. Patient has had some diarrhea. She has not fever or chills. Patient tells me she is frustrated because she feels like she is getting the run around. Differential includes but is not limited to disease, acute cholecystitis, appendicitis, diverticulitis, pancreatitis, small bowel obstruction, perforated bowel, viral etiology, food poisoning, UTI, pyelonephritis. CBC to assess white blood cell count, hemoglobin, platelets, differential. CMP to assess liver function, renal function, glucose, electrolytes, anion gap. Urinalysis to assess for UTI. Lipase to assess for pancreatitis. Patient was medicated with 4 mg of morphine 4 mg of Zofran as well as a liter of IV fluids. We will obtain a CT of the abdomen pelvis with IV and p.o. contrast. CBC shows a normal white blood cell count 9.3. Hemoglobin hematocrit are stable. Platelets normal. Renal function electrolytes are normal. LFTs are normal. Lipase negative. CT of the abdomen pelvis with IV and oral contrast shows no acute findings. There is a lot of stool in the right lower abdomen. Patient was counseled on this. I spoke with Dr. Chan who felt the patient could be discharged home to follow-up with the specialist that she was referred to and is seeing on the third. He states he does not think he can get her closer follow-up than that from a colorectal surgeon. I will bring a copy of this CT onto a disc. The patient states she has Percocet from Dr. Mann at home. I recommend that she use stool softeners and laxatives given a heavy stool burden she already has. Return precautions are discussed. Impression: 1. Appendiceal mass 2. Right lower quadrant pain 3. Constipation Lab Data Attestation: I reviewed the patient's lab results. Labs: Laboratory Results - last 24 hr 05/28/23 05/28/23 05/28/23 16:15 16:15 17:15 WBC 9.3 RBC 4.26 Hgb 13.2 Hct 40.1 MCV 94.1 MCH 31.0 MCHC 32.9 RDW Std Deviation 43.3 RDW Coeff of Barbara 12.6 Plt Count 264 MPV 9.2 Immature Gran % (Auto) 0.400 Neut % (Auto) 65.8 Lymph % (Auto) 26.4 [place] % (Auto) 5.5 Eos % (Auto) 1.4 Baso % (Auto) 0.5 Absolute Neuts (auto) 6.1 Absolute Lymphs (auto) 2.46 Nucleated RBC % 0 Sodium 136 Potassium 3.5 Chloride 104 Carbon Dioxide 27.0 Anion Gap 5 BUN 12 Creatinine 0.85 Estim Creat Clear Calc 59.75 Est GFR (MDRD) Af Amer 91 Est GFR (MDRD) Non-Af 75 BUN/Creatinine Ratio 14.1 Glucose 95 Calcium 8.8 Total Bilirubin 0.50 AST 15 ALT 36 Alkaline Phosphatase 104 Total Protein 7.3 Albumin 3.6 Globulin 3.7 Albumin/Globulin Ratio 1.0 Lipase 26 Urine Color Yellow Urine Clarity Sl. Cloudy Urine pH 6.0 Ur Specific [place] 1.015 Urine Protein Negative Urine Glucose (UA) Normal Urine Ketones Negative Urine Occult Blood Negative Urine Nitrite Negative Urine Bilirubin Negative Urine Urobilinogen Normal Ur Leukocyte Esterase Negative Urine RBC 0 SEEN Urine WBC 0 SEEN Ur Squamous Epith Cells 0-5 SEEN Urine Bacteria 0 SEEN Urine Mucus 0 SEEN Radiography Diagnostic Testing: Clinical Impression(s) from Imaging Studies Abdomen/Pelvis CT 05/28/23 16:15 IMPRESSION: Mild nonspecific fatty infiltrated liver postsurgical changes status post cholecystectomy. . No acute abnormalities. Specifically no evidence for acute appendicitis Status post hysterectomy. Small left ovarian cyst Electronically Signed: Toni Gore MD at 18:43 EDT Reading Location ID and State: [facility] / [place] , Service support , Discharge Plan Triage Chief Complaint: Abd Pain ED Provider: Steven Bro Dx/Rx/DC Orders Prescriptions: No Action meloxicam 15 mg tablet 15 mg PO DAILY zolpidem [Ambien CR] 12.5 mg tablet,ext release multiphase 12.5 mg PO QHS PRN (Reason: Sleep) clonazepam 1 mg tablet 1 mg PO TID PRN (Reason: FLYING) Label Comments: take 1 to 2 tablets by mouth once daily if needed for anxiety PRIOR TO GETTING ON AIRPLANE alprazolam 1 mg tablet 1 mg PO BID PRN (Reason: anxiety) fluoxetine 40 mg capsule 40 mg PO DAILY Label Comments: take 1 capsule by mouth once daily albuterol sulfate 90 mcg/actuation HFA aerosol inhaler 2 puff inhalation Q4H PRN (Reason: shortness of breath or wheezing) Label Comments: inhale 2 puffs by mouth as directed every 4 hours if needed for wheezing or shortness of breath ketorolac 10 mg tablet 10 mg PO Q6H PRN (Reason: Pain) Nurtec ODT 75 mg tablet,disintegrating 75 mg PO DAILY PRN (Reason: Migraine Headache) Label Comments: take 1 tablet by mouth once daily if needed oxycodone-acetaminophen [Percocet] 5-325 mg tablet 1 tab PO Q6H PRN (Reason: pain) 3 Days Qty: 12 0RF methocarbamol 500 mg tablet 1,000 mg PO 4X/DAY PRN PRN (Reason: Muscle pain/spasm) Qty: 56 0RF alprazolam 0.5 mg tablet 1 mg PO TID PRN (Reason: Anxiety) Qty: 45 0RF amitriptyline 75 mg tablet 75 mg PO QHS Qty: 30 12RF ondansetron HCl 4 mg tablet 4 mg PO Q8H PRN (Reason: nausea and vomiting) Qty: 60 2RF estradiol 0.1 mg/24 hr patch semiweekly See Rx Instructions .ROUTE .COMPLEX Qty: 8 5RF Dose Instruction: apply 1 patch for 3 days ALTERNATING WITH 1 PATCH FOR 4 DAYS EACH WEEK Rx Instructions: apply 1 patch for 3 days ALTERNATING WITH 1 PATCH FOR 4 DAYS EACH WEEK Primary Care Provider: Julián Green Referrals: Julián Green DO [Primary Care Provider] -
[2023-05-28] MEDS: Ondansetron 4 MG/2 ML Vial IV (16:22)
[2023-05-28] MEDS: Morphine 4 MG/ML Syringe IV ×2 (16:24→18:48)
[2023-05-28] MEDS: 0.9% Normal Saline 1,000 ML 999 ML IV (16:24)
[2023-05-28 16:28] LABS: Absolute Lymphocyte Count 2.46 X10^3/uL (0.83-4.51); Absolute Neutrophil Count 6.1 X10^3/uL (2.0-7.7); Basophil# 0.05 X10^3/uL; Basophil% 0.5 % (0-1); Eosinophil# 0.13 X10^3/uL; Eosinophils% 1.4 % (0-5); Hematocrit 40.1 % (37-47); Hemoglobin 13.2 g/dL (12.0-15.0); Lymphocyte # 2.46 X10^3/ul (0.83-4.51); Lymphocyte % 26.4 % (19-41); Mean Corp Hgb Conc 32.9 g/dL (32-36); Mean Corpuscular Volume 94.1 fL (81-99); Mean Platelet Vol. 9.2 fl (6.2-12.0); Monocyte# 0.51 X10^3/uL; Monocyte% 5.5 % (0-10); NRBC Flagged by Analyzer 0 % (0-5); Neutrophil # 6.14 X10^3/uL (2.7-7.7); Neutrophil % 65.8 % (47-70); Platelet Count 264 K/mm3 (150-450); RBC Distribution Width CV 12.6 % (11.6-14.6); RBC Distribution Width SD 43.3 fl (35.1-43.9); Red Blood Count 4.26 M/mm3 (4.2-5.4); White Blood Count 9.3 K/mm3 (4.4-11.0)
[2023-05-28 16:47] LABS: AST(SGOT) 15 U/L (15-37); Alanine Aminotransfer ALT/SGPT 36 U/L (13-56); Albumin, Serum 3.6 g/dL (3.2-5.0); Alkaline Phosphatase 104 U/L (45-117); Anion Gap 5 (5-15); BUN 12 mg/dL (7-18); BUN/Creat Ratio 14.1 RATIO (10-20); Calcium,Total 8.8 mg/dL (8.5-10.1); Chloride 104 mmol/L (98-107); Creatinine, Serum 0.85 mg/dL (0.55-1.02); EST Glomerular Filtration Rate 75 mL/min (>60); Est Glom Filt Rate - Afr Amer 91 mL/min (>60); Estimated Creatinine Clearance 59.75 ml/min; Globulin 3.7 g/dL (2.2-4.2); Glucose 95 mg/dL (74-106); Lipase 26 U/L (13-75); Potassium 3.5 mmol/L (3.5-5.1); Protein, Total 7.3 g/dL (6.4-8.2); Sodium Level 136 mmol/L (136-145)
[2023-05-28 17:19] LABS: Bacteria 0 SEEN /hpf (None Seen); Mucous, Urine 0 SEEN /hpf (<or=2+); Red Blood Cells-Urine 0 SEEN /hpf (0-5); White Blood Cells 0 SEEN /hpf (0-5)
[2023-05-28 17:21] LABS: Color, Urine Yellow (Yellow); Glucose, Dipstick Normal (Normal); Ketone-Dipstick Negative (Negative); Leukocyte Esterase-Dipstick Negative /ul (Negative); Nitrite-Dipstick Negative (Negative); Occult Blood-Urine Negative /ul (Negative); Protein-Dipstick Negative (Negative); Specific Gravity, Urine 1.015 (1.002-1.030); Urine Bilirubin Dipstick Negative (Negative); Urine Clarity Sl. Cloudy (Clear); Urine Urobilinogen Normal (Normal)
[2023-05-28 17:36] LABS: Squamous Epithelial Cells - UA 0-5 SEEN /hpf (5-10)
[2023-05-28 18:30] VITALS: BP 110/71; PULSE 76; RESP 16; O2SAT 99
== END 2023-05-28 20:09 | disposition home or self-care (01) ==
PROVIDERS: Emergency Provider Student in an Organized Health Care Education/Training Program; PCP Student in an Organized Health Care Education/Training Program; Visit Provider Student in an Organized Health Care Education/Training Program
DX: K59.00 Constipation, unspecified (principal); R10.31 Right lower quadrant pain; F41.9 Anxiety disorder, unspecified; F32.A Depression, unspecified; G43.909 Migraine, unspecified, not intractable, without status migrainosus; Z79.899 Other long term (current) drug therapy; Z90.49 Acquired absence of other specified parts of digestive tract; Z90.710 Acquired absence of both cervix and uterus; D12.1 Benign neoplasm of appendix
CPT/HCPCS: 74177; 80053; 81001; 83690; 85025; 96361; 96374; 96375; 96376; 99283; J7030; Q9967; A4216; J2405

== ENCOUNTER → 2023-08-12 | Outpatient (CLI) | payer OTHER, SELFPAY | END | disposition home or self-care (01) | LOC: LAB 09:19 | PROVIDERS: PCP Student in an Organized Health Care Education/Training Program; Referring Provider Ophthalmology; Visit Provider Ophthalmology | DX: Z79.899 Other long term (current) drug therapy (principal) | CPT/HCPCS: 36415 ==

== ENCOUNTER → 2023-09-06 | Outpatient (CLI) | payer OTHER, SELFPAY ==
--- NOTE | 2023-09-06 11:20 | CT_ITS ---
STUDY: CT ABDOMEN AND PELVIS WITH CONTRAST REASON FOR EXAM: Female, 48 years old. NAUSEA/VOMITING RADIATION DOSAGE (If Supplied By Facility): CTDIvol = ( 21.43 ) mGy, DLP = ( 470.15 ) mGycm TECHNIQUE: Transaxial images were obtained from the dome of the diaphragm to the symphysis pubis with oral contrast. Oral and amp; IV Gastrografin and amp; 100mL Isovue-300 was administered. Sagittal and coronal images were reconstructed. Individualized dose optimization techniques were used for this CT. COMPARISON: Comparison is made with prior study dated May 28, 2023. FINDINGS: The visualized lung bases are unremarkable. The visualized portions of the heart are within normal limits. There is decreased attenuation of the liver consistent with steatosis. The patient is status post cholecystectomy. Normal spleen. Normal pancreas. Normal bilateral adrenal glands. Normal right kidney. Normal left kidney. Normal visualized stomach. Normal small intestine. A moderate amount of fecal material is seen throughout the colon. The appendix is visualized and appears normal. Normal abdominal aorta. Normal inferior vena cava. Normal retroperitoneum. Normal urinary bladder. There is absence of the uterus consistent with a prior hysterectomy. Normal abdominal wall. Normal osseous structures. CT/Abdomen/Pelvis WITH Contrast IMPRESSION: Large amount of fecal material is seen in the colon. Status post cholecystectomy and appendectomy. Mild degree of fatty dictation of the liver. Electronically Signed: Brad Calabrese MD at 13:10 EDT ,
== END | disposition home or self-care (01) ==
LOC: CT 09:36
PROVIDERS: PCP Student in an Organized Health Care Education/Training Program
DX: R11.0 Nausea (principal); R10.11 Right upper quadrant pain; R10.31 Right lower quadrant pain; R30.0 Dysuria
CPT/HCPCS: 74177; Q9967; A4216

== ENCOUNTER → 2023-12-03 | Outpatient (CLI) | payer OTHER, SELFPAY | END | disposition home or self-care (01) | LOC: LAB 10:41 | PROVIDERS: PCP Student in an Organized Health Care Education/Training Program; Referring Provider Ophthalmology; Visit Provider Ophthalmology | DX: Z00.00 Encounter for general adult medical examination without abnormal findings (principal) | CPT/HCPCS: 36415 ==

== ENCOUNTER → 2024-01-13 | Outpatient (CLI) | payer OTHER, SELFPAY ==
--- NOTE | 2024-01-13 14:55 | BI_ITS ---
MAMMOGRAPHY - BILATERAL SCREENING REASON FOR EXAM: Female, 48 years old. Routine annual screening examination. PERTINENT HISTORY: Non-contributory. TECHNIQUE: Digital bilateral breast lorenzo (3D mammographic acquisition) in the CC and MLO projections. 2-D mediolateral oblique (MLO) and craniocaudad (CC) views of both breasts were obtained. CAD: Full Field Digital Mammography with Computer Added Detection was performed. COMPARISON: Comparison is made with prior study dated January 09, 2023 and December 22, 2021. FINDINGS: Breast Composition: There are scattered areas of fibroglandular density. There are no dominant masses or suspicious calcifications. Stable small benign-appearing bilateral axillary lymph nodes. No other significant abnormalities are identified. There has been no significant change since the prior study. BI/SCRN MAMM (CAD)W/LORENZO BILAT IMPRESSION: Stable bilateral screening mammogram. Yearly follow-up mammogram recommended. (A) ASSESSMENT CATEGORY: BIRADS Category 2: Benign. A letter regarding these results will be sent to the patient by the facility within 30 days. Approximately 10% of breast cancers are not detected by mammography. A normal mammogram should not delay biopsy of a clinically suspicious abnormality. [id number] Electronically Signed: Brad Calabrese MD at 15:25 EST ,
== END | disposition home or self-care (01) ==
LOC: OPBI 14:54
PROVIDERS: PCP Student in an Organized Health Care Education/Training Program; Referring Provider Obstetrics & Gynecology; Visit Provider Obstetrics & Gynecology
DX: Z12.31 Encounter for screening mammogram for malignant neoplasm of breast (principal)
CPT/HCPCS: 77063; 77067

== ENCOUNTER → 2024-04-30 | Outpatient (CLI) | payer OTHER, SELFPAY ==
[2024-04-30 10:36] LABS: SERUM TEARS COLLECTION SPECIMEN PROCESSED
== END | disposition home or self-care (01) ==
LOC: LAB 08:31
PROVIDERS: PCP Student in an Organized Health Care Education/Training Program; Visit Provider Ophthalmology
DX: H04.123 Dry eye syndrome of bilateral lacrimal glands (principal)

== ENCOUNTER → 2024-12-01 | Outpatient (CLI) | payer SELFPAY ==
[2024-12-01 10:55] LABS: SERUM TEARS COLLECTION SPECIMEN PROCESSED
== END | disposition home or self-care (01) ==
PROVIDERS: PCP Student in an Organized Health Care Education/Training Program; Referring Provider Ophthalmology; Visit Provider Ophthalmology
DX: H04.123 Dry eye syndrome of bilateral lacrimal glands (principal)

== ENCOUNTER → 2025-01-20 | Outpatient (CLI) | payer OTHER, SELFPAY ==
--- NOTE | 2025-01-20 15:11 | BI_ITS ---
PROCEDURE: SCRN MAMM (CAD)W/LORENZO BILAT REASON FOR EXAM: F, Age 49 y/o, no family history. Annual mammographic follow-up. TECHNIQUE: Bilateral screening digital breast tomosynthesis with 2D and 3D images. Computer aided detection. COMPARISON: Prior exam(s) dating back to January 13, 2024.. FINDINGS: There are scattered areas of fibroglandular density. Stable small benign- appearing bilateral axillary lymph nodes. No suspicious masses, areas of developing architectural distortion, or suspicious calcifications. BI/SCRN MAMM (CAD)W/LORENZO BILAT IMPRESSION: BI-RADS 2: BENIGN. RECOMMEND ANNUAL MAMMOGRAPHIC SCREENING. Follow-up code: Routine Follow-up The patient will be notified of the results by letter. Reading Location: [id number]
== END | disposition home or self-care (01) ==
LOC: OPBI 15:10
PROVIDERS: PCP Student in an Organized Health Care Education/Training Program; Referring Provider Emergency Medicine; Visit Provider Emergency Medicine
DX: Z12.31 Encounter for screening mammogram for malignant neoplasm of breast (principal)
CPT/HCPCS: 77063; 77067

== ENCOUNTER → 2025-09-24 | Outpatient (CLI) | payer SELFPAY ==
[2025-09-24 11:29] LABS: SERUM TEARS COLLECTION SPECIMEN PROCESSED
== END | disposition home or self-care (01) ==
PROVIDERS: PCP Student in an Organized Health Care Education/Training Program; Referring Provider Ophthalmology; Visit Provider Ophthalmology
DX: H04.123 Dry eye syndrome of bilateral lacrimal glands (principal)

== ENCOUNTER → 2025-10-03 | Outpatient (CLI) | payer OTHER, SELFPAY | END | disposition home or self-care (01) | LOC: LABSPEC 10-04 08:39 | PROVIDERS: PCP Student in an Organized Health Care Education/Training Program; Visit Provider Nurse Practitioner Family | DX: R82.90 Unspecified abnormal findings in urine (principal) | CPT/HCPCS: 87077; 87086; 87088; 87186 ==

== ENCOUNTER 2025-11-23 09:48 | Emergency (ER) | payer OTHER, SELFPAY ==
[2025-11-23 09:49] VITALS: BP 115/82; PULSE 107; RESP 18; TEMP 36.9; O2SAT 100; BMI 26.2
[2025-11-23 09:50] VITALS: BP 115/82; PULSE 84; RESP 14; TEMP 36.9; O2SAT 100
--- NOTE | 2025-11-23 10:34 | EDS_ITS ---
HPI HPI - Female History of Present Illness Chief Complaint: Complaint Narrative Narrative: Chief complaint and HPI: 50-year-old female with recent UTI presents for evaluation of right flank pain. Patient states her onset of right flank pain was approximately 3 days ago. Endorses dysuria. Denies any fever, chills, shortness of breath, chest pain abdominal pain, nausea, vomiting, diarrhea. No history of urolithiasis. Review of systems: See HPI Medications: As listed on the chart Allergies: As listed on the chart PFSH: Per chart Vital signs: As listed on the chart. Reviewed. Physical exam: Gen: A&O x3, NAD Head: Normocephalic, atraumatic Eyes: No sclera icterus, conjunctiva clear ENT: Moist mucous membranes CV: RRR, no murmurs Resp: Lungs CTA BL, no w/r/c GI: Abd soft, non-distended, mildly tender to palpation of the right flank, no r/r/g : No CVA tenderness Musc: Full ROM, no deformity Skin: Warm, dry Psych: Cooperative, appropriate mood and affect [facility] History URI (upper respiratory infection) SOBOE (shortness of breath on exertion) Fatigue Premenopausal menorrhagia COVID-19 (01/2022) Headache, migraine Shoulder lesion, left Lipoma Climacteric Depression Anxiety Home Medications ?Medication ?Instructions ?Recorded ?Last Taken ?Type rimegepant 75 mg disintegrating 75 mg PO DAILY PRN Tom fadia 03/20/22 Unknown History tablet (Nurtec ODT) Headache alprazolam 0.5 mg tablet 1 mg (2 x 0.5 mg) PO TID PRN 08/20/22 Unknown Rx Anxiety #45 tabs amitriptyline 75 mg tablet 75 mg PO QHS #30 tabs 08/20 Unknown Rx ondansetron HCl 4 mg tablet 4 mg PO Q8H PRN nausea and 08/20/22 Unknown Rx vomiting #60 tabs albuterol sulfate 90 mcg/actuation 2 puff inhalation Q 4H PRN 09/28/22 Unknown History aerosol inhaler shortness of breath or wheez ing clonazepam 1 mg tablet 1 mg PO TID PRN FLYING 09/28 Unknown History fluoxetine 40 mg capsule 40 mg PO DAILY 09/28/22 Unkn own History zolpidem 12.5 mg tablet,extended 12.5 mg PO QHS PRN Sl eep 09/28/22 Unknown History release,multiphase (Ambien CR) estradiol 0.1 mg/24 hr semiweekly See Rx Instructions .Route 09/09/24 Unknown Rx transdermal patch .COMPLEX #24 patches Allergy/AdvReac Type Severity Reaction Status Date / Time promethazine (From Phenergan) Allergy STOPPED Verified 11/23/25 09:50 BREATHING Family History Mother Depression Father Depression Hypertension Grandfather Heart disease ID at age 50; fatal ID at age 57; Myocardial infarction Paternal grandfather?2 MIs age 40s, of ID age 60s; maternal grandfather- 2 MIs age 60s, CABG; Depression CAD (coronary artery disease) Maternal and paternal grandfather Grandmother Heart disease CHF (congestive heart failure) CAD (coronary artery disease) Myocardial infarction Paternal grandmother?several MIs and CABG; Uncle Myocardial infarction Father's identical twin?ID at age 40s; Surgical History History of appendectomy Hx of tubal ligation History of shoulder surgery History of laparoscopy History of bladder repair surgery History of cholecystectomy History of hysterectomy Social History household members: spouse Smoking Status: Never smoker alcohol intake: current details: social substance use type: does not use caffeine: Yes what type of physical activity do you participate in: walking seatbelt use: always do you feel safe at home: Yes additional social history: 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 EXAM Physical Exam Const Vital Signs: 11/23/25 09:49 11/23/25 09:50 11/23/25 10:50 Temperature 98.4 F 98.4 F 98 F Temperature Source Oral Oral Oral Pulse Rate 107 H 84 80 Respiratory Rate 18 14 14 Blood Pressure 115/82 H 115/82 H 123/80 H Blood Pressure Mean 93 93 94 Pulse Ox 100 100 100 Oxygen Delivery Method Room Air Room Air Room Air 11/23/25 11:00 11/23/25 11:49 Temperature 98 F Temperature Source Oral Pulse Rate 80 72 Respiratory Rate 14 12 Blood Pressure 120/78 106/65 Blood Pressure Mean 92 78 Pulse Ox 100 100 Oxygen Delivery Method Room Air Room Air MDM MDM MDM Narrative Medical decision making narrative: 50-year-old female with recent UTI presents for evaluation of right flank pain. Patient states her onset of right flank pain was approximately 3 days ago. Endorses dysuria. Differential diagnosis includes was not limited to UTI, urolithiasis, pyelonephritis, electrolyte abnormality, dehydration. NS bolus, both for feeding, Zofran ordered for symptoms. Laboratory workup ordered including CT abdomen pelvis without contrast. CBC unremarkable without leukocytosis or anemia. BMP unremarkable. CT abdomen pelvis negative for urolithiasis or UTI. No acute intra-abdominal findings. Focal ventral wall hernia at the level of the umbilicus, containing fat portion of small bowel, mildly larger since the prior study. Patient is not tender in this area of her abdomen. UA is negative for UTI. At this point in time no clear etiology to explain her right flank pain or dysuria. Flank pain could be a possible muscle spasm. Patient states she does have history of back pain. Recommend Tylenol and ibuprofen as needed. Follow-up with primary care physician. Return back to ED symptoms change or worsen. She confirmed understand the plan. Patient will discharge home. She was made aware of her hernia. Impression: 1. Right flank pain 2. Dysuria Lab Data Labs: Laboratory Results - last 24 hr 11/23/25 11/23/25 10:00 10:40 WBC 7.0 RBC 4.36 Hgb 13.6 Hct 41.1 MCV 94.3 MCH 31.2 MCHC 33.1 RDW Std Deviation 39.5 RDW Coeff of Barbara 11.5 L Plt Count 255 MPV 9.1 Immature Gran % (Auto) 0.300 Neut % (Auto) 64.6 Lymph % (Auto) 25.9 Walsh % (Auto) 6.9 Eos % (Auto) 1.6 Baso % (Auto) 0.7 Absolute Neuts (auto) 4.5 Absolute Lymphs (auto) 1.81 Nucleated RBC % 0 Sodium 137 Potassium 4.3 Chloride 101 Carbon Dioxide 27.1 Anion Gap 9 BUN 17 Creatinine 0.89 Estim Creat Clear Calc 62.94 Est GFR (MDRD) Non-Af 78 BUN/Creatinine Ratio 18.8 Glucose 93 Calcium 9.0 Urine Color Yellow Urine Clarity Sl. Cloudy Urine pH 6.5 Ur Specific [place] 1.010 Urine Protein Negative Urine Glucose (UA) Normal Urine Ketones Negative Urine Occult Blood Negative Urine Nitrite Negative Urine Bilirubin Negative Urine Urobilinogen Normal Ur Leukocyte Esterase Negative Urine RBC 0 SEEN Urine WBC 0 SEEN Ur Squamous Epith Cells 5-10 SEEN Urine Bacteria 0 SEEN Urine Mucus 0 SEEN Radiography Diagnostic Testing: Clinical Impression(s) from Imaging Studies Abdomen/Pelvis CT 11/23/25 10:45 IMPRESSION: 1. No urolithiasis or signs of urinary tract obstruction. 2. No acute findings in the abdomen or pelvis. Reading Location: [facility] Discharge Plan Triage Chief Complaint: Complaint ED Provider: Austin Lanier Dx/Rx/DC Orders Prescriptions: No Action zolpidem [Ambien CR] 12.5 mg tablet,ext release multiphase 12.5 mg PO QHS PRN (Reason: Sleep) clonazepam 1 mg tablet 1 mg PO TID PRN (Reason: FLYING) Patient Comments: take 1 to 2 tablets by mouth once daily if needed for anxiety PRIOR TO GETTING ON AIRPLANE fluoxetine 40 mg capsule 40 mg PO DAILY Patient Comments: take 1 capsule by mouth once daily albuterol sulfate 90 mcg/actuation HFA aerosol inhaler 2 puff inhalation Q4H PRN (Reason: shortness of breath or wheezing) Patient Comments: inhale 2 puffs by mouth as directed every 4 hours if needed for wheezing or shortness of breath estradiol 0.1 mg/24 hr patch semiweekly See Rx Instructions .ROUTE .COMPLEX Qty: 24 6RF Dose Instruction: apply 1 patch for 3 days ALTERNATING WITH ONE PATCH FOR FOUR DAYS EACH WEEK Rx Instructions: apply 1 patch for 3 days ALTERNATING WITH ONE PATCH FOR FOUR DAYS EACH WEEK Nurtec ODT 75 mg tablet,disintegrating 75 mg PO DAILY PRN (Reason: Migraine Headache) Patient Comments: take 1 tablet by mouth once daily if needed alprazolam 0.5 mg tablet 1 mg PO TID PRN (Reason: Anxiety) Qty: 45 0RF amitriptyline 75 mg tablet 75 mg PO QHS Qty: 30 12RF ondansetron HCl 4 mg tablet 4 mg PO Q8H PRN (Reason: nausea and vomiting) Qty: 60 2RF Primary Care Provider: Julián Green Referrals: Julián Green, DO [Primary Care Provider, Medical] Print Language: Polish
[2025-11-23] MEDS: 0.9% Normal Saline (1000mL) 1,000 ML 999 ML IV (10:40)
[2025-11-23 10:45] LABS: Mucous, Urine 0 SEEN /hpf (<or=2+); Red Blood Cells-Urine 0 SEEN /hpf (0-5)
--- NOTE | 2025-11-23 10:45 | CT_ITS ---
PROCEDURE: ABDOMEN/PELVIS WITHOUT CONT 11/23/2025 REASON FOR EXAM: R FLANK PAIN. Urinary frequency. Surgical history: Hysterectomy, cholecystectomy, bladder repair and appendectomy. TECHNIQUE: Procedure Code: [id number] Modality: CT Procedure: ABDOMEN/PELVIS WITHOUT CONT Noncontrast technique limits evaluation of the abdominal and pelvic viscera. Coronal and Sagittal reconstruction series were provided. One or more dose reduction techniques were used (e.g., Automated exposure control, adjustment of the mA and/or kV according to patient size, use of iterative reconstruction technique). RADIATION DOSE SUMMARY: CTDlvol: 6.37 mGy DLP: 315 mGycm COMPARISON: CT Abdomen and Pelvis w/Contrast, 09/06/2023 FINDINGS: LUNG BASES: No basilar airspace consolidation or pleural effusion. Dependent left lower lobe atelectasis. LIVER: Unremarkable. GALLBLADDER: Prior cholecystectomy. BILE DUCTS: No ductal dilation. PANCREAS: Unremarkable. SPLEEN: Unremarkable. ADRENAL GLANDS: Unremarkable. KIDNEYS/URETERS Unremarkable. No renal, ureteral or bladder calculi. No hydronephrosis or hydroureter. STOMACH AND BOWEL: No obstruction or perforation. No wall thickening. Few colonic diverticula. No CT evidence of colitis or acute diverticulitis. Moderate colonic stool. APPENDIX: Surgically absent. RETRO/PERITONEUM: No free fluid. No free air. LYMPH NODES: No lymphadenopathy. PELVIC ORGANS: Unremarkable urinary bladder. Prior hysterectomy. No adnexal lesions. VASCULATURE: No aortic aneurysm. ABDOMINAL WALL AND SOFT TISSUES: Focal ventral wall eventration at the level of the umbilicus, containing fat and portion of small bowel, mildly larger since the prior study. BONES: No fracture or suspicious osseous abnormality. CT/Abdomen/Pelvis without Cont IMPRESSION: 1. No urolithiasis or signs of urinary tract obstruction. 2. No acute findings in the abdomen or pelvis. Reading Location: [id number]
[2025-11-23 10:46] LABS: Color, Urine Yellow (Yellow); Glucose, Dipstick Normal (Normal); Ketone-Dipstick Negative (Negative); Leukocyte Esterase-Dipstick Negative /ul (Negative); Nitrite-Dipstick Negative (Negative); Occult Blood-Urine Negative /ul (Negative); Protein-Dipstick Negative (Negative); Specific Gravity, Urine 1.010 (1.002-1.030); Urine Bilirubin Dipstick Negative (Negative)
[2025-11-23 10:49] LABS: Hematocrit 41.1 % (37-47); Hemoglobin 13.6 g/dL (12.0-15.0); Immature Granulocytes Count 0.020 X10^3/uL (0.0-0.0); Mean Corp Hgb Conc 33.1 g/dL (32-36); Mean Corpuscular Volume 94.3 fL (81-99); Mean Platelet Vol. 9.1 fl (6.2-12.0); NRBC Flagged by Analyzer 0 % (0-5); Platelet Count 255 K/mm3 (150-450); RBC Distribution Width CV 11.5 % (11.6-14.6); RBC Distribution Width SD 39.5 fl (35.1-43.9); Red Blood Count 4.36 M/mm3 (4.2-5.4); White Blood Count 7.0 K/mm3 (4.4-11.0)
[2025-11-23 10:50] VITALS: BP 123/80; PULSE 80; RESP 14; TEMP 36.6; O2SAT 100
[2025-11-23 10:52] LABS: Squamous Epithelial Cells - UA 5-10 SEEN /hpf (5-10)
[2025-11-23 11:00] VITALS: BP 120/78; PULSE 80; RESP 14; TEMP 36.6; O2SAT 100
[2025-11-23 11:14] LABS: Anion Gap 9 (7-18); BUN 17 mg/dL (4-19); BUN/Creat Ratio 18.8 RATIO (10-20); Calcium,Total 9.0 mg/dL (7.6-11.0); Carbon Dioxide 27.1 mmol/L (20.0-29.0); Chloride 101 mmol/L (96-106); Estimated Creatinine Clearance 62.94 ml/min (50-250); Glucose 93 mg/dL (70-99); Potassium 4.3 mmol/L (3.5-5.1)
[2025-11-23 11:49] VITALS: BP 106/65; PULSE 72; RESP 12; O2SAT 100
[2025-11-23 12:11] VITALS: BP 105/60; PULSE 70; RESP 12; TEMP 36.8; O2SAT 100
== END 2025-11-23 12:21 | disposition home or self-care (01) ==
PROVIDERS: Emergency Provider Surgery; PCP Student in an Organized Health Care Education/Training Program; Visit Provider Surgery
DX: R10.A1 Flank pain, right side (principal); R30.0 Dysuria
CPT/HCPCS: 74176; 80048; 81001; 85025; 96361; 96374; 96375; 99283; A4216; J2405